=== PATIENT | male | born 1950 | race Caucasian/White ===

== ENCOUNTER → 2020-01-29 07:40 | Outpatient (REF) | payer MEDICARE, SELFPAY ==
--- NOTE | 2020-01-29 | NM_ITS ---
Myocardial perfusion study Indication: Chest pain with multiple risk factors to evaluate for myocardial ischemia Technique: The patient was brought in for a Lexiscan perfusion study on 01/29/2020. Patient performed low-level exercise and was injected 0.4 mg of Lexiscan intravenously. Within a minute of injection, 25 mCi of sestamibi was given intravenously. Images were obtained using the SPECT gamma camera interlaced with the gating device. Images were obtained in supine position. Resting perfusion study was performed on 01/30/2020. Patient was administered 25 mCi of sestamibi intravenously at rest. Images were then obtained in supine position. Images obtained with and without CT attenuation. Total DLP 63 MGY-CM. Images were processed with the software and compared side to side in short axis, horizontal long axis and vertical long axis views. Findings: The stress perfusion study showed non attenuated images show normal uptake of radiotracer in all segments of LV myocardium with thinning of the inferoapical wall of the LV myocardium. Attenuation corrected images show mildly reduced uptake in the apex of the LV myocardium.. The gated study shows normal LV systolic function with calculated LVEF of 70%. LV cavity is normal in size. The gated study shows normal systolic wall thickening and contraction of segments. Resting study shows no change in perfusion pattern compared to stress perfusion study. Gating at rest reveals normal systolic wall motion with ejection fraction at 72%. The findings are consistent with normal myocardial perfusion. NM/NM teto perf SPECT rest & str Impression: 1. Myocardial perfusion imaging study shows normal myocardial perfusion 2. Gated LVEF is 70% 3. Transient ischemic dilatation not present EKG is nondiagnostic for ischemia
--- NOTE | 2020-01-29 08:00 | CA_ITS ---
Acquisition Time: 2020-01-29 08:00:33 Total Exercise Time: 00:02:00 Test Indications: cp, htn Medications: see chart Protocol: LEXISCAN Max HR: 122 BPM 80% of Pred: 151 BPM Max BP: 132/070 mmHG Max Work Load: 1.6 METS Pharmacological stress test using Lexiscan while walking on treadmill for 2 min. Pt tolerated well. Denies any anginal sx. EKG with no arrhythmias, non-diagnoastic for ischemia. Nuclear images to follow. Normotensive response to test. Test reviewed with Dr. Nunez. Referred By: Noe Strauss Overread By:
--- NOTE | 2020-01-29 09:30 | ECG_ITS ---
Hook-up date: 2020-01-29 08:59:00 Duration: 47:59:00 Test Indications: CHEST PAIN, HTN, PALPS Medications: [id number] QRS complexes 3 Ventricular ectopics which represent <1 % of total QRS comp. 1 Supraventricular ectopics which represent <1 % of total QRS comp. * Paced QRS complexs which represent % of total QRS comp. VENTRICULAR ECTOPY 3 Isolated 0 Bigeminal Cycles 0 Couplets 0 Runs 0 Beats in Runs * Beats LONGEST at * BPM at :: -- * Beats FASTEST at * BPM at :: -- SUPRAVENTRICULAR ECTOPY 1 Isolated 0 Couplets 0 Runs 0 Beats in Runs * Beats LONGEST at * BPM at :: -- * Beats FASTEST at * BPM at :: -- HEART RATES 54 MIN at 04:43:18 2020-01-30 76 AVG 125 MAX at 14:20:39 2020-01-30 LONGEST RR 1.2480 secs at 04:43:14 2020-01-30 S-T LEVELS Channel 1 - 128 mm at 08:59:00 2020-01-29 - 128 mm at 08:59:00 2020-01-29 Channel 2 - 128 mm at 08:59:00 2020-01-29 - 128 mm at 08:59:00 2020-01-29 Channel 3 - 128 mm at 02:81:81 -- - 128 mm at 02:81:81 holter monitor IVANA [id number].[id number]. PT DIARY NOT THERE. total beats.[id number]. heart rates.min 54/min. max 125/min at 14.20.39. enlayan30/min. arrhythmias. VENTRICULAR, PVCS only 3 no tachy arrhythmias. SUPRACENTRICULAR ARRHYTHMIAS. ONLY PAC. THIS IS AN UNREMARKABLE HOLTER MONITOR.NO SIG ABN,REGULAR SINUS RHTHM. SIA BAIN M.D. Referred By: Sia Bain Overread By: SIA BAIN MD
== END ==
LOC: HO.CARD 07:40
DX: I10 Essential (primary) hypertension (principal); R00.2 Palpitations; R07.9 Chest pain, unspecified
CPT/HCPCS: 78452; 93017; 93225; 93226; A9500; J0280; J2785

== ENCOUNTER → 2020-04-30 07:26 | Outpatient (BNVA) | payer MEDICARE, SELFPAY | PROVIDERS: Visit Provider Internal Medicine Endocrinology, Diabetes & Metabolism | DX: E04.2 Nontoxic multinodular goiter (principal); E06.3 Autoimmune thyroiditis; E03.9 Hypothyroidism, unspecified; R05 Cough | CPT/HCPCS: 99212 ==

== ENCOUNTER 2020-04-30 08:12 | Outpatient (REF) | payer MEDICARE, SELFPAY ==
[2020-04-30 11:19] LABS: Free T4 (Free Thyroxine) 0.94 ng/dL (0.71-1.85); Thyroid Stimulating Hormone 4.47 uIU/mL (0.32-4.0)
== END 2020-04-30 08:13 | disposition home or self-care (01) ==
LOC: HO.10HDL 08:12
PROVIDERS: Visit Provider Internal Medicine Endocrinology, Diabetes & Metabolism
DX: E04.2 Nontoxic multinodular goiter (principal); E06.3 Autoimmune thyroiditis
CPT/HCPCS: 36415; 84439; 84443

== ENCOUNTER 2020-05-09 16:07 | Outpatient (REF) | payer MEDICARE, SELFPAY ==
--- NOTE | ~2020-05-09 | US_ITS ---
EXAMINATION: US THYROID CLINICAL INFORMATION: Nontoxic multinodular goiter. COMPARISON: Ultrasound soft tissue head/neck thyroid dated 09/25/2019. CT neck 07/12/2019. TECHNIQUE: Linear transducer napier-scale and color Doppler examination with attention to the region of the thyroid. FINDINGS: SIZE: Measurements of the thyroid lobes and nodules are given in sagittal, anteroposterior and transverse dimensions respectively. Right Thyroid Lobe: 5.5 x 2.6 x 2.6 cm, volume 19.2 mL. Previously 6.2 x 3.8 x 4.4 cm, volume 54.2 mL. Parenchyma: The gland echotexture is heterogeneous. Thyroid vascularity is normal. Left Thyroid Lobe: 4.4 x 1.4 x 1.9 cm, volume 5.9 mL. Previously 4.4 x 1.7 x 1.9 cm, volume 7.4 mL. Parenchyma: The gland echotexture is homogeneous. Thyroid vascularity is normal. Isthmus: 0.4 cm in maximum AP dimension. Previously 0.4 cm. Estimated total number of nodules greater than or equal to 1 cm: 4. Dress Shoe Inspector nodules are described as follows: 1. Location: Right inferior. Size: 2.9 x 1.9 x 3.0 cm, volume 8.6 mL. Previously: 2.8 x 2.1 x 2.8 cm, volume 8.6 mL. Nodule characteristics: Composition: Mixed cystic and solid (1). Echogenicity: Cannot be determined (1). Shape: Not taller than wide (0). Margins: Smooth (0). Echogenic Foci: None (0). ACR TI-RADS total points: 2 ACR TI-RADS category: 2 Significant change in size (>/= 20% in 2 dimensions and minimal increase of 2 mm): Slight decrease in the size of the lung volumes. Change in features: No change in parenchymal echotexture. Change in ACR TI-RADS risk category: Unchanged. 2. Location: Right mid lateral. Size: 2.5 x 1.3 x 1.3 cm, volume 2.2 mL. Previously: 4.9 x 3.5 x 4.1 cm, volume 36.8 mL. Nodule characteristics: Composition: Mixed cystic and solid (1). Echogenicity: Cannot be determined (1). Shape: Not taller than wide (0). Margins: Extrathyroidal extension (3). Echogenic Foci: None (0). ACR TI-RADS total points: 5 ACR TI-RADS category: 4 Significant change in size (>/= 20% in 2 dimensions and minimal increase of 2 mm): Improved size from 4.9 cm to 2.5 cm. Change in features: Hypoechoic previously to mixed density now. Change in ACR TI-RADS risk category: None. 3. Location: Right superior. Size: 1.1 x 1.0 x 1.4 cm, volume 0.8 mL. Previously: 1.2 x 1.1 x 1.1 cm, volume 0.8 mL. Nodule characteristics: Composition: Spongiform (0). ACR TI-RADS total points: 0 ACR TI-RADS category: 1 Significant change in size (>/= 20% in 2 dimensions and minimal increase of 2 mm): None Change in features: None. Change in ACR TI-RADS risk category: None. 4. Location: Left mid/inferior. Size: 1.1 x 0.7 x 0.8 cm, volume 0.3 mL. Previously: 1.1 x 0.6 x 0.7 cm, volume 0.2 mL. Nodule characteristics: Composition: Spongiform (0). ACR TI-RADS total points: 0 ACR TI-RADS category: 1 Significant change in size (>/= 20% in 2 dimensions and minimal increase of 2 mm): No change. Change in features: None. Change in ACR TI-RADS risk category: None. There are multiple small anechoic simple cysts and colloid cysts seen throughout the lobes. NODES: No lymphadenopathy is seen in the tissue surrounding the thyroid gland. US/US thyroid IMPRESSION: Multiple bilateral thyroid nodules. The largest nodule lower pole and mid pole right lobe are noted again. The mid pole nodule has improved and is partially exophytic. Recommend continued annual followup. ACR TI-RADS RECOMMENDATIONS: Ultrasound-guided fine-needle aspiration, followup ultrasound, no further followup. * TR1 (0 point) and TR 2 (2 points): No FNA or follow up * TR3 (3 points): FNA if more than or equal to 2.5 cm in maximum dimension, followup in 1, 3 and 5 years if 1.5 to 2.4 cm in maximum dimension. * TR 4 (4-6 points): FNA if more than or equal to 1.5 cm in maximum dimension, followup in 1, 2, 3 and 5 years if 1 to 1.4 cm in maximum dimension. * TR 5 (more than or equal to 7 points): FNA if more than or equal to 1 cm in maximum dimension, followup every year for 5 years if 0.5 to 0.9 cm in maximum dimension. TR3, TR4 or TR5 nodules that are below the size threshold for followup receive no followup.
== END 2020-05-09 16:08 | disposition home or self-care (01) ==
LOC: HO.US 16:07
PROVIDERS: Visit Provider Internal Medicine Endocrinology, Diabetes & Metabolism
DX: E04.2 Nontoxic multinodular goiter (principal)
CPT/HCPCS: 76536

== ENCOUNTER → 2020-05-16 15:01 | Outpatient (BNVA) | payer MEDICARE, SELFPAY | PROVIDERS: Visit Provider Internal Medicine | DX: R05 Cough (principal); I10 Essential (primary) hypertension | CPT/HCPCS: 99202 ==

== ENCOUNTER 2020-06-13 12:53 | Outpatient (REF) | payer MEDICARE, SELFPAY ==
--- NOTE | 2020-06-13 17:14 | PFT_ITS ---
FLOWS: FEV1 of 77% of predicted at 2.34 L. FVC 65% of predicted at 2.68 L. FEV1 to FVC ratio of 0.87. No bronchodilator response. LUNG VOLUMES: Total lung capacity 69% of predicted at 4.59 L. Residual volume 75% of predicted at 1.77 L. Slow vital capacity 65% of predicted at 2.32 L. Expiratory reserve volume 54% of predicted at 0.62 L. Diffusion capacity is moderately decreased, diffusion capacity corrects to normal after adjustment for alveolar ventilation. IMPRESSION: Moderate restrictive ventilatory defect with no bronchodilator response. Isolated decrease in diffusion capacity suggests underlying pulmonary vascular or parenchymal disease. Clinical correlation is advised. MD DIMITRIS Prado/MODL / [id number]
== END 2020-06-13 12:54 | disposition home or self-care (01) ==
LOC: HO.RESP 12:53
PROVIDERS: PCP Internal Medicine; Visit Provider Internal Medicine
DX: R05 Cough (principal); R06.02 Shortness of breath; J98.4 Other disorders of lung; R91.8 Other nonspecific abnormal finding of lung field; I77.810 Thoracic aortic ectasia; Z79.899 Other long term (current) drug therapy; Z86.16 Personal history of COVID-19
CPT/HCPCS: 94060; 94727; 94729; 99212

== ENCOUNTER 2020-06-24 08:19 | Outpatient (REF) | payer MEDICARE, SELFPAY ==
--- NOTE | ~2020-06-24 | CT_ITS ---
EXAMINATION: CT CHEST WITHOUT CONTRAST CLINICAL INFORMATION: Followup pleural-based nodules. COMPARISON: None TECHNIQUE: Multidetector volumetric CT imaging of the chest was done. Axial MIP volume rendering provided. Sagittal and coronal reformatted images were obtained. This CT examination was performed using dose optimization techniques as appropriate, variously including the following: *Automated exposure control *Adjustment of mA and/or kV according to patient size (this includes techniques or standardized protocols for targeted exams where dose is matched to indication/reason for exam; i.e. extremities or head) *Use of iterative reconstruction technique DLP: 128 mGy-cm FINDINGS: SKATESMAN: Unremarkable. LUNGS: There are a few scattered lung nodules seen slightly more prominent in the left lung. 3 mm nodule in the lingula axial image 387/5, punctate calcified 1 mm nodule left lower lobe axial image 386/5, pleural-based 4 mm nodule left lower lobe axial image 396/5, 3 mm nodule pleural-based left lower lobe axial image 419/5, 6 mm nodule pleural-based left lower lobe axial image 437/5. Pleural-based 3 mm nodule right lower lobe image 456/5, 3 mm nodule right lower lobe pleural-based image 442/5, 4 mm nodule pleural-based right lower lobe axial image 405/5, 9 mm pleural-based nodule right lower lobe posteriorly, axial image 393/5. MEDIASTINUM: The right thyroid lobe is asymmetrically enlarged. The left lobe is unremarkable. The central trachea and the bronchi are widely patent. There is atherosclerotic calcification of coronary arteries. The heart size is normal. No pericardial effusion seen. No abnormal mediastinal or hilar lymph nodes seen. The ascending aorta measures 4.5 x 4.1 cm axial image 25/3. PLEURA: There is no pleural effusion. No pleural mass or thickening. AXILLA: There are small shotty lymph nodes in bilateral axillae. The chest wall appears unremarkable. UPPER ABDOMEN: Visualized liver, spleen, pancreas, and bilateral adrenal glands are unremarkable. There is a 1.2 cm exophytic cyst upper pole right kidney. OSSEOUS STRUCTURES: There is no lytic or sclerotic process seen. There is moderate ventral spondylosis upper and mid dorsal spine. CT/CT chest wo con IMPRESSION: Stable multiple pleural-based bilateral nodules. Mild aneurysmal dilatation of abdominal aorta, stable. Enlarged right lobe with a hypodense nodule. The cystic component seen previously has reduced.
== END 2020-06-24 08:20 | disposition home or self-care (01) ==
LOC: HO.CT 08:19
PROVIDERS: Visit Provider Internal Medicine
DX: R05 Cough (principal); R91.8 Other nonspecific abnormal finding of lung field; J98.4 Other disorders of lung
CPT/HCPCS: 71250

== ENCOUNTER 2020-07-08 10:53 | Outpatient (REF) | payer MEDICARE, SELFPAY ==
[2020-07-08 11:52] LABS: MANUAL DIFF FLAG NO
[2020-07-08 11:59] LABS: Basophils Absolute Auto 0.1 X10*3/uL (0.0-0.2); Basophils Percent Auto 0.6 % (0-2); Eosinophils Absolute Auto 0.1 X10*3/uL (0.0-0.4); Eosinophils Percent Auto 1.5 % (0-4); Hematocrit 39.8 % (42-52); Hemoglobin 12.8 g/dl (14.0-18.0); Imm Gran Abs Auto 0.03 X10*3/uL (0.00-0.03); Imm Gran Pct Auto 0.3 % (0.0-0.4); Lymphocytes Absolute Auto 2.7 X10*3/uL (1.2-4.9); Mean Corpuscular HGB Conc 32.2 g/dl (31.0-36.0); Mean Corpuscular Hemoglobin 29.2 pg (27.0-33.0); Mean Corpuscular Volume 90.9 fL (80-98); Mean Platelet Volume 10.6 fL (9.4-12.4); Monocytes Absolute Auto 0.5 X10*3/uL (0.1-1.2); Monocytes Percent Auto 5.9 % (2-11); Neutrophils Absolute Auto 5.2 X10*3/uL (2.0-8.3); Neutrophils Percent Auto 60.7 % (45-73); Platelet Count 289 X10*3/uL (160-400); Red Blood Count 4.38 X10*6/uL (4.60-5.80); Red Cell Distribution Width 11.7 % (11.0-16.0); White Blood Count 8.6 X10*3/uL (4.8-10.8)
[2020-07-08 12:35] LABS: Alanine Aminotransferase 24 U/L (0-40); Albumin Level 4.1 g/dL (3.5-5.0); Alkaline Phosphatase 81 U/L (39-117); Anion Gap 12 (12-20); Aspartate Amino Transferase 20 U/L (5-37); Bilirubin Total 0.5 mg/dL (0.0-1.0); Blood Urea Nitrogen 19 mg/dL (9-16); Calcium 8.8 mg/dL (8.4-10.2); Carbon Dioxide 25 mmol/L (22-29); Chloride 105 mmol/L (96-108); Cholesterol 203 mg/dL; Estimated Glomerular Filt Rate > 60; Glucose Fasting 91 mg/dL (60-99); HDL Cholesterol 48 mg/dL; LDL Cholesterol Calculated 133 mg/dl; Potassium 4.6 mmol/L (3.3-5.1); Sodium 137 mmol/L (135-145); Total Protein 6.9 g/dL (6.5-8.0); Triglycerides 113 mg/dL
[2020-07-08 12:42] LABS: TSH reflex Free T4 2.94 uIU/mL (0.32-4.0)
[2020-07-08 13:04] LABS: Vitamin B12 736 pg/mL (200-900)
[2020-07-12 14:42] LABS: Vitamin D 25-OH, D2 <4 ng/mL; Vitamin D 25-OH, D3 23 ng/mL; Vitamin D 25-OH, Total 23 ng/mL (30-100)
== END 2020-07-08 10:54 | disposition home or self-care (01) ==
LOC: HO.LAB 10:53
PROVIDERS: PCP Internal Medicine; Visit Provider Internal Medicine
DX: K21.9 Gastro-esophageal reflux disease without esophagitis (principal); I10 Essential (primary) hypertension; E06.3 Autoimmune thyroiditis; E04.2 Nontoxic multinodular goiter; Z76.89 Persons encountering health services in other specified circumstances
CPT/HCPCS: 36415; 80053; 80061; 82306; 82607; 84443; 85025

== ENCOUNTER → 2020-08-23 08:17 | Outpatient (BNVA) | payer MEDICARE, SELFPAY | PROVIDERS: PCP Internal Medicine; Visit Provider Internal Medicine Endocrinology, Diabetes & Metabolism | DX: E04.2 Nontoxic multinodular goiter (principal); E06.3 Autoimmune thyroiditis; E03.9 Hypothyroidism, unspecified | CPT/HCPCS: 99212 ==

== ENCOUNTER → 2020-11-25 07:54 | Outpatient (BNVA) | payer MEDICARE, SELFPAY | PROVIDERS: PCP Internal Medicine; Visit Provider Internal Medicine | DX: E04.2 Nontoxic multinodular goiter (principal) | CPT/HCPCS: Q3014 ==

== ENCOUNTER → 2020-12-11 14:22 | Outpatient (BNVA) | payer MEDICARE, SELFPAY | PROVIDERS: PCP Internal Medicine; Referring Provider Internal Medicine; Visit Provider Internal Medicine | DX: Z01.810 Encounter for preprocedural cardiovascular examination (principal); I77.810 Thoracic aortic ectasia; I25.10 Atherosclerotic heart disease of native coronary artery without angina pectoris; R00.0 Tachycardia, unspecified; R06.02 Shortness of breath | CPT/HCPCS: 93005; 99202 ==

== ENCOUNTER → 2020-12-20 10:50 | Outpatient (REF) | payer MEDICARE, SELFPAY ==
--- NOTE | 2020-12-20 10:54 | HM_ITS ---
The patient was totally monitored for 3 days and 2 hours. Baseline there was normal sinus rhythm with average heart is 74 beats per minute No significant pauses or bradycardia noted No sustained tachyarrhythmias noted Total of 666 isolated PACs noted to be consistent with rare PACs at 0.2% No patient reported symptoms MTDD
== END ==
LOC: HO.CARD 10:50
PROVIDERS: Visit Provider Internal Medicine
DX: R00.2 Palpitations (principal); R06.02 Shortness of breath
CPT/HCPCS: 93242

== ENCOUNTER → 2020-12-25 07:25 | Outpatient (REF) | payer MEDICARE, SELFPAY ==
--- NOTE | 2020-12-25 07:28 | CA_ITS ---
Transthoracic Echocardiogram Patient (Last, First, Middle): Melquiades Self, Gender: Male Date of : 1950 Age: 70 Procedure Date: 12/25/2020 Procedure Type: Transthoracic Echocardiogram Location: OP Height: 175.26 cm Weight: 80. kg BSA: 1.96 m2 Heart Rate: bpm BP: 122 / 60 mmHg Spool Cleaner Hand: Referring MD: Kd Nunez MD Field Checker: Rigoberto Hoffmann MD Symptoms: R06.02 - Shortness of breath Study Quality: Fair ECG Rhythm: Sinus Conclusions: - 1. Normal LV systolic function with impaired relaxation filling pattern 2. Mildly dilated left atrium 3. Mild ascending aortic aneurysm 4. Mild aortic valve regurgitation 5. Normal RV systolic pressure 6. No pericardial effusion Findings Left Ventricle Normal left ventricular size and systolic function. The visually estimated ejection fraction is between 60-65%. Spectral Doppler is indicative of an impaired relaxation filling pattern. E/E prime ratio is between 8 and 15 consistent with indeterminate filling pressures. Right Ventricle Normal right ventricular cavity size and systolic function. Atria The left atrium is mildly dilated. Interatrial shunt cannot be excluded. The right atrium is normal in size. Aortic Valve The aortic valve structure and function is likely normal. There is no aortic valve stenosis. There is mild aortic valve regurgitation. Mitral Valve Normal mitral valve structure and function. There is trace mitral valve regurgitation. There is no mitral valve stenosis. Pulmonic Valve The pulmonic valve is likely normal. Tricuspid Valve Likely normal tricuspid valve structure and function. There is trace tricuspid valve regurgitation. The right ventricular systolic pressure is normal. The right ventricular systolic pressure is 29 mmHg. There is no evidence of pulmonary hypertension. Great Vessels The pulmonary artery was not well visualized. There is mild dilatation of the ascending aorta measuring 3.90 cm. Venous The inferior vena cava is normal in size and collapses greater than 50% with inspiration. Pericardium/Pleural There is no evidence of pericardial effusion. Measurements 2D Linear Measurements Ao Root: 3.20 2.1-3.5 cm LVOT Diam: 2.00 3.0+(-)1.3 cm Mitral Valve MV Pk E: 0.66 MV PK A: 0.81 MV Decel Time: 273.00 E/A: 0.80 E'Lateral: 7.07 E'Medial: 6.42 E/E' Med: 10.30 E/E' Lat: 9.40 PHT: 80.00 MVA PHT: 2.75 Decel Adams: 2.43 Aortic Valve AoV Pk Royer: 1.40 AoV Mn Royer: 0.87 AoV VTI: 0.39 AoV Pk Grad: 8.00 Aov Mn Grad: 4.00 SMILEY Cont.VTI: 1.86 AI Pk Royer: 3.08 AI Adams: 2.17 LVOT LVOT Pk Royer: 0.91 LVOT Mn Royer: 0.54 LVOT VTI: 0.23 LVOT Pk Grad: 3.00 LVOT Mn Grad: 1.00 LVOT Diam: 2.00 LVOT Area: 3.14 Diastolic Function MV Pk E: 0.66 MV Pk A: 0.81 E/A: 0.80 E'Medial: 6.42 E/E' Med: 10.30 E' Laterial: 7.07 E/E' Lat: 9.40 Tricuspid Valve TR Pk Royer: 2.57 TR Pk Grad: 26.00 RA Press: 3.00 RVSP: 29.00 Great Vessels Aorta Ao Root-2D: 3.20 2.0-3.7 cm Ao Asc: 3.90 2.1-3.4 cm Ao Arch: 4.00 Pulmonary Valve PV Pk Royer: 0.92 Peak PV Grad: 3.00 Updated in Other Vendor System with Status of Final Rigoberto Hoffmann MD electronically signed on 12/25/2020 1:34:20 PM with status of Final
== END ==
LOC: HO.CARD 07:25
PROVIDERS: Visit Provider Internal Medicine
DX: R06.02 Shortness of breath (principal)
CPT/HCPCS: 93306

== ENCOUNTER → 2021-01-01 14:48 | Outpatient (BNVA) | payer MEDICARE, SELFPAY | PROVIDERS: PCP Internal Medicine; Referring Provider Internal Medicine; Visit Provider Nurse Practitioner Family | DX: Z01.810 Encounter for preprocedural cardiovascular examination (principal); I25.10 Atherosclerotic heart disease of native coronary artery without angina pectoris; I77.810 Thoracic aortic ectasia; E78.5 Hyperlipidemia, unspecified; R06.02 Shortness of breath; R00.0 Tachycardia, unspecified | CPT/HCPCS: 99212 ==

== ENCOUNTER 2021-02-04 08:39 | Outpatient (REF) | payer MEDICARE, SELFPAY ==
[2021-02-04 09:57] LABS: Alanine Aminotransferase 23 U/L (0-40); Albumin Level 4.4 g/dL (3.5-5.0); Alkaline Phosphatase 98 U/L (39-117); Anion Gap 12 (12-20); Aspartate Amino Transferase 20 U/L (5-37); Bilirubin Total 0.7 mg/dL (0.0-1.0); Blood Urea Nitrogen 14 mg/dL (9-16); Calcium 9.3 mg/dL (8.4-10.2); Carbon Dioxide 27 mmol/L (22-29); Chloride 106 mmol/L (96-108); Estimated Glomerular Filt Rate > 60; Glucose Random 102 mg/dL (60-115); Sodium 140 mmol/L (135-145); Total Protein 7.4 g/dL (6.5-8.0)
[2021-02-04 10:18] LABS: Thyroid Stimulating Hormone 12.37 uIU/mL (0.32-4.0)
[2021-02-04 10:23] LABS: Free T4 (Free Thyroxine) 0.81 ng/dL (0.71-1.85)
== END 2021-02-04 08:40 | disposition home or self-care (01) ==
LOC: HO.LAB 08:39
PROVIDERS: Internal Medicine; PCP Internal Medicine; Visit Provider Internal Medicine
DX: H11.89 Other specified disorders of conjunctiva (principal); E04.2 Nontoxic multinodular goiter
CPT/HCPCS: 36415; 80053; 84439; 84443

== ENCOUNTER 2021-03-25 09:29 | Outpatient (REF) | payer MEDICARE, SELFPAY ==
[2021-03-25 11:17] LABS: Free T4 (Free Thyroxine) 0.96 ng/dL (0.71-1.85); Thyroid Stimulating Hormone 6.05 uIU/mL (0.32-4.0)
== END 2021-03-25 09:30 | disposition home or self-care (01) ==
LOC: HO.LAB 09:29
PROVIDERS: Internal Medicine; Visit Provider Internal Medicine
DX: E03.9 Hypothyroidism, unspecified (principal)
CPT/HCPCS: 36415; 84439; 84443

== ENCOUNTER 2021-04-14 10:10 | Outpatient (REF) | payer OTHER, SELFPAY ==
--- NOTE | 2021-04-14 13:23 | MHC.AU.ANO ---
Adult Audiological Evaluation Date of Visit: 04/14/21 Rubber Goods Cutter Finisher Used: Not Applicable Reason for Appointment: Audiologic evaluation due to long-standing hearing difficulties, left ear greater than right. Melquiades reports over the past 1-2 years, the hearing has decreased significantly with tinnitus which sounds like music, and intermittent dizziness with further decrease in hearing ability. He notes symptoms improve somewhat when he performs a Valsalva Manuever. Melquiades says he experiences significant congestion with frequent throat clearing. Has hearing been tested previously?: Yes Previous Hearing Test Results: Results are not available for review Hearing Handicap Inventory: HHIE SCORE: 32 Based on HHIE score, patient has: Severe perceived hearing handicap Ear History: Bothersome Tinnitus/Ringing/Noises in Ears: Left ear greater than right Ear used on the phone: Right Ear Blocked/Full Sensation in Ear(s): Left ear greater than right History of occupational noise exposure?: No History: History: No Medical History: Medical History: G6PD Deficiency and Thyroid Disease - THESE DISORDERS MAY RELATE TO INCREASE IN HEARING LOSS High blood pressure and question of malaria Medication List: Losartan, Omeprazole, Levothyroxine, Amoxicillin, Folic Acid, Vitamins D3 and B12. ICMAPAP, Tylenol, or Motrin used as needed Otoscopy: Right Ear: Unremarkable Left Ear: Unremarkable Tympanometry: Tympanometry performed due to: To assess integrity of the middle ear system Right Ear: Normal Middle Ear System (Type A) Left Ear: Reduced Middle Ear Compliance (Type As) Otoacoustic Emissions Frequency Range Used: 1.6-8 kHz Right Ear Results: Absent Emissions Analysis: Absent emissions suggest cochlear dysfunction Results are consistent with degree and configuration of hearing loss Left Ear Results: Absent Emissions Analysis: Absent emissions suggest cochlear dysfunction Results are consistent with degree and configuration of hearing loss Hearing Evaluation: Transducer(s) Used: Insert Earphones Bone Conduction Method: Conventional Audiometry Stimuli Used: Pure Tones Right Ear: Description of Hearing: Moderate sloping to severe mixed hearing loss. Left Ear: Description of Hearing: Moderately-severe sloping to severe mixed hearing loss. Speech Recognition Threshold (SRT): Method Used: Monitored Live Voice Stimuli Used: Spondee Words Right Ear: 50 dB HL Left Ear: 55 dB HL Word Discrimination: Method: Recorded Lists Word Lists Used: NU-6 Right Ear: 52% at 90 dB HL Left Ear: 32% at 85 dB HL Recommendations: - Referral to Ear, Nose, and Throat is recommended to further investigate the hearing loss and significant speech discrimination difficulty, as well as the possible role of G6PD Deficiency relating to the loss. - If appropriate with Melquiades's medical history, consideration of trial period with hearing aids is recommended. Advised him to contact his insurance to determine hearing aid providers covered by his insurance. - Provided a handout of Communication Strategies to use to improve speech understanding as much as possible. - Audiological re-evaluation in one year, or sooner if medically advised by a physician. Diagnosis: Primary Diagnosis: H90.6 Mixed Hearing Loss, Bilateral Secondary Diagnosis: H69.92 Unspecified Eustachian Tube Dysfunction, Left Ear Services Performed: Comprehensive Audiological Evaluation (CPT 46612) Diagnostic Otoacoustic Emissions (CPT 23119, 26+TC) Tympanometry (CPT 13886) Signature: Provider: Chano Diaz, CCC-A
== END 2021-04-14 10:11 | disposition home or self-care (01) ==
LOC: HO.SH 10:10
PROVIDERS: Visit Provider Internal Medicine
DX: H90.6 Mixed conductive and sensorineural hearing loss, bilateral (principal); H69.92 Unspecified Eustachian tube disorder, left ear
CPT/HCPCS: 92557; 92567; 92588

== ENCOUNTER → 2021-05-08 10:38 | Outpatient (BNVA) | payer MEDICARE, SELFPAY | PROVIDERS: PCP Internal Medicine; Visit Provider Internal Medicine | DX: R05.3 Chronic cough (principal); J98.4 Other disorders of lung; R91.8 Other nonspecific abnormal finding of lung field | CPT/HCPCS: 99212 ==

== ENCOUNTER 2021-05-12 09:32 | Outpatient (REF) | payer MEDICARE, SELFPAY ==
[2021-05-12 12:00] LABS: Free T4 (Free Thyroxine) 1.07 ng/dL (0.71-1.85)
[2021-05-12 12:45] LABS: Thyroid Stimulating Hormone 1.73 uIU/mL (0.32-4.0)
== END 2021-05-12 09:33 | disposition home or self-care (01) ==
LOC: HO.LAB 09:32
PROVIDERS: PCP Internal Medicine; Visit Provider Internal Medicine
DX: E03.9 Hypothyroidism, unspecified (principal); Z88.6 Allergy status to analgesic agent; Z91.02 Food additives allergy status; Z88.2 Allergy status to sulfonamides; Z91.018 Allergy to other foods
CPT/HCPCS: 36415; 84439; 84443; 99212

== ENCOUNTER 2021-05-28 13:16 | Outpatient (REF) | payer MEDICARE, SELFPAY ==
--- NOTE | ~2021-05-28 | CT_ITS ---
EXAMINATION: CT CHEST WITHOUT CONTRAST CLINICAL INFORMATION: Follow-up pulmonary nodules. COMPARISON: CT chest 06/24/2020. TECHNIQUE: Multidetector volumetric CT imaging of the chest was done. Axial MIP volume rendering provided. Sagittal and coronal reformatted images were obtained. This CT examination was performed using dose optimization techniques as appropriate, variously including the following: *Automated exposure control *Adjustment of mA and/or kV according to patient size (this includes techniques or standardized protocols for targeted exams where dose is matched to indication/reason for exam; i.e. extremities or head) *Use of iterative reconstruction technique DLP: 132 mGy-cm FINDINGS: ASBESTOS REMOVAL SUPERVISOR: Well-inflated lungs. LUNGS: Again visualized are multiple small pulmonary nodules: A 3 mm nodule right upper lobe axial image 164/6, a 4 mm nodule left lower lobe axial image 311/6, a 3 m nodule in the lingula axial image 311/6, a pleural-based 9 mm nodule right lower lobe 319/6, a pleural-based 2 mm nodule right lower lobe posteriorly image 229/6, a 6 mm nodule left lower lobe pleural-based 346/6, a 2 mm pleural-based nodule right lower lobe lateral basal segment axial image 379/6. All of these nodules are stable. MEDIASTINUM: The heart size is normal. The ascending aorta measures 4.5 x 4.3 cm on axial image 25/3. Trace coronary artery calcification is seen. The central trachea and the bronchi are widely patent. The thyroid lobes are normal. Previously seen enlarged right thyroid gland appears normal now. No abnormal lymph nodes seen. PLEURA: There is no pleural effusion. No pleural mass or thickening. AXILLA: There are numerous bilateral small axillary lymph nodes. The left axillary lymph node is slightly larger measuring 1.4 cm on axial image 13/3. It is similar to the prior two exams. The chest wall is unremarkable. UPPER ABDOMEN: Visualized liver, spleen, pancreas unremarkable. OSSEOUS STRUCTURES: No lytic lytic or sclerotic process seen. There is moderate spondylosis throughout dorsal spine. CT/CT chest wo con IMPRESSION: Stable multiple pulmonary nodules. Borderline aneurysmal dilatation of ascending aorta measuring 4.5 cm. Fleischner guidelines were followed.
== END 2021-05-28 13:17 | disposition home or self-care (01) ==
LOC: HO.CT 13:16
PROVIDERS: PCP Internal Medicine; Visit Provider Internal Medicine
DX: J98.4 Other disorders of lung (principal); R91.8 Other nonspecific abnormal finding of lung field
CPT/HCPCS: 71250

== ENCOUNTER → 2021-05-29 12:22 | Outpatient (BNVA) | payer MEDICARE, SELFPAY | PROVIDERS: PCP Internal Medicine; Referring Provider Internal Medicine; Visit Provider Internal Medicine | DX: I25.10 Atherosclerotic heart disease of native coronary artery without angina pectoris (principal); I77.810 Thoracic aortic ectasia; I35.1 Nonrheumatic aortic (valve) insufficiency; R00.0 Tachycardia, unspecified | CPT/HCPCS: 93005; 99212 ==

== ENCOUNTER 2021-08-13 08:36 | Outpatient (REF) | payer MEDICARE, SELFPAY ==
[2021-08-13 10:10] LABS: Alanine Aminotransferase 41 U/L (0-40); Albumin Level 3.8 g/dL (3.5-5.0); Alkaline Phosphatase 95 U/L (39-117); Anion Gap 12 (12-20); Aspartate Amino Transferase 40 U/L (5-37); Bilirubin Total 0.7 mg/dL (0.0-1.0); Blood Urea Nitrogen 14 mg/dL (9-16); Carbon Dioxide 25 mmol/L (22-29); Chloride 101 mmol/L (96-108); Estimated Glomerular Filt Rate > 60; Glucose Random 96 mg/dL (60-115); Potassium 5.1 mmol/L (3.3-5.1); Sodium 133 mmol/L (135-145); Total Protein 7.1 g/dL (6.5-8.0)
[2021-08-13 10:20] LABS: TSH reflex Free T4 1.33 uIU/mL (0.32-4.0)
[2021-08-13 10:21] LABS: Vitamin D 25-OH Total 15.6 ng/mL (>30)
[2021-08-14 14:46] LABS: Calcium (PTHI) 8.5 mg/dL (8.6-10.3); PTHI 84 pg/mL (16-77)
== END 2021-08-13 08:37 | disposition home or self-care (01) ==
LOC: HO.LAB 08:36
PROVIDERS: Internal Medicine; PCP Internal Medicine; Visit Provider Internal Medicine
DX: E03.8 Other specified hypothyroidism (principal); I10 Essential (primary) hypertension; K21.9 Gastro-esophageal reflux disease without esophagitis; R53.83 Other fatigue
CPT/HCPCS: 36415; 80053; 82306; 83970; 84443

== ENCOUNTER 2021-08-21 13:50 | Emergency (ER) | payer MEDICARE, SELFPAY ==
[2021-08-21] VITALS (8 sets, daily range): BP systolic 112–157; BP diastolic 68–80; PULSE 70–87; RESP 15–18; TEMP 36.6–37; O2SAT 97–100; BMI 25.0
--- NOTE | ~2021-08-21 | XR_ITS ---
EXAMINATION: XR CHEST CLINICAL INFORMATION: Chest pain COMPARISON: Chest radiographs 08/22/2019, 08/21/2013, CT chest noncontrast 06/24/2020 TECHNIQUE: Portable upright AP view of the chest was obtained. FINDINGS: Patient is rotated to left. The lungs are clear. There is no pneumothorax, pleural reaction, airspace consolidation, or effusion. Heart size normal. The visualized hilar and mediastinal contours are unremarkable. There are degenerative changes thoracic spine. XR/XR chest 1V IMPRESSION: Unremarkable examination.
--- NOTE | 2021-08-21 13:51 | ECG_ITS ---
Test Reason : cp Blood Pressure : / mmHG Vent. Rate : 076 BPM Atrial Rate : 076 BPM P-R Int : 186 ms QRS Dur : 078 ms QT Int : 362 ms P-R-T Axes : 051 -07 029 degrees QTc Int : 407 ms Normal sinus rhythm Normal ECG When compared with ECG of 02-JAN-2012 16:04, No significant change was found Referred By: Generic ED Physician Electronically Signed By:YANIRA GILLIS
--- NOTE | 2021-08-21 14:12 | ED.CHESTPAIN ---
HPI - Chest Pain General Chief Complaint: Chest Pain Stated Complaint: chest pain Time Seen by Provider: 08/21/21 14:02 Source: patient Mode of arrival: ambulatory Limitations: no limitations History of Present Illness HPI narrative: 71 y/o male with history of CAD s/p recent CT angio showing 90% LAD stenosis who presents to the ER with acute onset of 10/10 left sided chest pressure that radiates to his left shoulder and upper arm. He was sitting when the pressure came on suddenly. He tried laying down and sleeping but could not. He denies any SOB, diaphoresis or nausea. He reports the pressure is in his left upper chest and he has a numbness into his left upper arm, nothing in the lower arm or hand. No weakness. He took his ASA 81 this morning and his had him take 2 more prior to arrival. He is scheduled for an angioplasty at [facility] on 09/02. MD complaint: chest pain Pertinent past history: coronary artery disease Onset (ago): hour(s) Timing of current episode: constant Prior episodes: No Onset: during rest Pain location: left chest Pain radiation: left arm and left shoulder Severity: severe Pain scale (0-10): 10 Quality: tightness and heaviness Relieving factors: nothing Exacerbating factors: nothing Treatment prior to arrival: aspirin Risk Factors Coronary artery disease risk factors: hyperlipidemia and hypertension Thoracic aortic dissection risk factors: none Related Data Home Medications Medication Instructions Recorded Confirmed metoprolol tartrate 25 mg tablet 12.5 mg PO DAILY tab 05/28/21 05/29/21 aspirin 81 mg tablet,delayed 81 mg PO DAILY 08/20/21 release Previous Rx's Medication Instructions Recorded Cane #1 ea 10/29/20 levothyroxine 75 mcg tablet 75 mcg PO DAILY 30 Days #30 tab 07/03/21 omeprazole 20 mg capsule,delayed 20 mg PO ONCE 90 Days #90 cap 08/06/21 release cholecalciferol (vitamin D3) 1,250 1,250 mcg PO QWEEK 56 Days #8 cap 08/18/21 mcg (50,000 unit) capsule cholecalciferol (vitamin D3) 50 50 mcg PO DAILY 30 Days #30 cap 08/18/21 mcg (2,000 unit) capsule losartan 25 mg tablet 25 mg PO DAILY 90 Days #90 tab 08/19/21 atorvastatin 80 mg tablet 80 mg PO BEDTIME 30 Days #30 tab 08/20/21 Allergies Allergy/AdvReac Type Severity Reaction Status Date / Time aspirin [ASPIRIN] Allergy Severe G6PD Verified 05/29/21 12:27 DEFICIENCY blue dye [BLUE DYE] Allergy Unknown G6PD Verified 05/29/21 12:27 Sulfa (Sulfonamide Allergy Unknown UNKNOWN Verified 05/29/21 12:27 Antibiotics) [SULFA(SULFONAMIDE ANTIBIOTICS)] BEANS. BAKED Allergy Severe BRE BEANS Uncoded 05/29/21 12:27 ( G6PD DEFICINCEY Review of Systems Review of Systems: Constitutional: No Fever, No Chills ENT/Mouth: No sore throat, No Rhinorrhea, No Swallowing Difficulty Eyes: No Eye Pain, No Swelling, No Redness Cardiovascular: + Chest Pain, No SOB, No Orthopnea, No Edema Respiratory: No Cough, No Sputum, No Wheezing, No dyspnea Gastrointestinal: No Nausea, No Vomiting, No Diarrhea, No abdominal Pain Genitourinary: No Dysuria, No Urinary Frequency, No Hematuria Musculoskeletal: No joint pain, No Myalgias Skin: No Skin Lesions, No rash Neuro: No Weakness, + Numbness, No Dizziness, No Headache Psych: + Anxiety/Panic, No Depression Heme/Lymph: No Bruising, No Lymphadenopathy Endocrine: No Polyuria, No Polydipsia PMFSH Past Medical History Attestation statement: The following information was validated with the patient. Medical History Chronic cough Dysphagia Jadiel's disease Hypertension Hypothyroidism Mild ascending aorta dilatation Non-toxic multinodular goiter Pulmonary nodules Restrictive lung disease Subclinical hypothyroidism Vitamin D deficiency Surgical History History of thyroid surgery Hx of cholecystectomy Family History Family History Father Hypertension Heart disease Mother Hypertension Social History Social History Household Members: Spouse and Children Housing: House Alcohol intake: never Patient Tobacco Use Status: Never used Tobacco Smoked in Last 30 Days: No e-Cigarette/Vaping Use: Never Used Use of substances other than those prescribed or required for medical reasons: No Advance Directives: Yes Advance Directives Information Provided: Yes Advance Directives on File: No Current occupational status: retired Physical Exam Vital Signs: Vital Signs: Last Vital Signs Temp 98 F 08/21/21 14:04 Pulse 76 08/21/21 18:06 Resp 15 08/21/21 18:06 BP 120/68 08/21/21 18:06 Pulse Ox 97 08/21/21 18:06 BMI result Body Mass Index 25.0 Appearance: Alert. Oriented X3. No acute distress. Eyes: Pupils equal, round and reactive to light. ENT: Pharynx normal. Neck: Normal inspection. Neck supple. CVS: Normal heart rate and rhythm. Pulses normal. Respiratory: No respiratory distress. Breath sounds normal. Abdomen: Soft and nontender. +BS x4 Skin: Skin warm and dry. Normal skin color. Normal skin turgor. No rashes. Extremities: No lower extremity edema. No calf tenderness. Neuro: Oriented X 3. No motor deficit. No sensory deficit. Course Course Course Narrative: 71-year-old male with a history of known CAD with 90% stenosis of the LAD seen on recent CT angiography of the coronaries who presents to the ER with sudden onset of severe 10/10 chest pressure on the left side that radiates to the left shoulder. High suspicion for ACS. Initial EKG without STEMI or significant ischemic changes. He is hemodynamically stable. Dr. Nunez has been made aware he is in the emergency department. Will check serial troponins, serial EKGs, give a dose of sublingual nitroglycerin and monitor closely. Anticipate transfer to [facility] for intervention Reevaluation(s) Reevaluation #1: Initial troponin is less than 3.5. Dr. Nunez came to evaluate the patient in the ER, he would like to start empiric heparin infusion, transfer the patient to [facility] for cardiac catheterization by Dr. France tomorrow. Patient updated on plan of care. No improvement with 1st dose of nitroglycerin so give a dose of IV morphine. Called the transfer center to initiate transfer, unfortunately there are notes limit treatments available at [facility] at this time. Dr. France to be contacted by their transfer center to determine plan, patient may need to board in the ED until he can be cath'ed tomorrow. Reevaluation #2: Second troponin is less than 3.5. Spoke with patient placement at [facility] - he will be transferred once a bed is available. Reevaluation #3: Bed available on 7th floor - Dr. Clark accepts with Cardiology plan to cath tomorrow ([facility]) Consultations Consultation #1: Cardiology-Dr. Nunez. MDM - Chest Pain Lab Data Attestation: I reviewed the patient's lab results. Result diagrams: 08/21/21 14:34 08/21/21 14:34 Labs: Lab Results 08/21/21 08/21/21 08/21/21 Range/Units 14:34 14:34 14:34 WBC 10.2 (4.8-10.8) X10*3/uL RBC 4.59 L (4.60-5.80) X10*6/uL Hgb 12.5 L (14.0-18.0) g/dl Hct 39.2 L (42.0-52.0) % MCV 85.4 (80.0-98.0) fL MCH 27.2 (27.0-33.0) pg MCHC 31.9 (31.0-36.0) g/dl RDW 12.3 (11.0-16.0) % Plt Count 299 (160-400) X10*3/uL MPV 11.0 (9.4-12.4) fL Immature Gran % (Auto) 0.3 (0.0-0.4) % Neut % (Auto) 50.9 (45-73) % Lymph % (Auto) 38.9 (20-40) % [place] % (Auto) 7.5 (2-11) % Eos % (Auto) 1.9 (0-4) % Baso % (Auto) 0.5 (0-2) % Lymph # (Auto) 4.0 (1.2-4.9) X10*3/uL [place] # (Auto) 0.8 (0.1-1.2) X10*3/uL Eos # (Auto) 0.2 (0.0-0.4) X10*3/uL Baso # (Auto) 0.1 (0.0-0.2) X10*3/uL Abs Immat Gran (auto) 0.03 (0.00-0.03) X10*3/uL Absolute Neuts (auto) 5.2 (2.0-8.3) x10*3/uL Absolute Nucleated RBC 0.000 (0.0-0.012) X10*3/uL Nucleated RBC % (auto) 0.0 (0.0-0.2) /100WBC PT 11.8 (9.9-13.0) SEC INR 1.0 (0.9-1.1) APTT 34.8 (24.1-38.0) SEC aPTT Heparin Protocol (53-77.9) SEC Sodium 134 L (135-145) mmol/L Potassium 4.3 (3.3-5.1) mmol/L Chloride 101 (96-108) mmol/L Carbon Dioxide 26 (22-29) mmol/L Anion Gap 11 L (12-20) BUN 15 (9-16) mg/dL Creatinine 0.92 (0.5-1.4) mg/dL Estim Creat Clear Calc 76.0 Estimated GFR > 60 Random Glucose 93 (60-115) mg/dL Calcium 9.0 (8.4-10.2) mg/dL Magnesium 2.4 (1.6-2.6) mg/dL Total Bilirubin 0.5 (0.0-1.0) mg/dL Direct Bilirubin 0.2 (0.0-0.5) mg/dL AST 24 (5-37) U/L ALT 26 (0-40) U/L Alkaline Phosphatase 103 (39-117) U/L Troponin I High Sens (<3.5-35.0) ng/L B-Natriuretic Peptide (<100) pg/mL Total Protein 6.9 (6.5-8.0) g/dL Albumin 3.9 (3.5-5.0) g/dL COVID-19 (ZAINA) (Negative) COVID-19 Clin Com 08/21/21 08/21/21 08/21/21 Range/Units 14:34 14:34 16:41 WBC (4.8-10.8) X10*3/uL RBC (4.60-5.80) X10*6/uL Hgb (14.0-18.0) g/dl Hct (42.0-52.0) % MCV (80.0-98.0) fL MCH (27.0-33.0) pg MCHC (31.0-36.0) g/dl RDW (11.0-16.0) % Plt Count (160-400) X10*3/uL MPV (9.4-12.4) fL Immature Gran % (Auto) (0.0-0.4) % Neut % (Auto) (45-73) % Lymph % (Auto) (20-40) % [place] % (Auto) (2-11) % Eos % (Auto) (0-4) % Baso % (Auto) (0-2) % Lymph # (Auto) (1.2-4.9) X10*3/uL [place] # (Auto) (0.1-1.2) X10*3/uL Eos # (Auto) (0.0-0.4) X10*3/uL Baso # (Auto) (0.0-0.2) X10*3/uL Abs Immat Gran (auto) (0.00-0.03) X10*3/uL Absolute Neuts (auto) (2.0-8.3) x10*3/uL Absolute Nucleated RBC (0.0-0.012) X10*3/uL Nucleated RBC % (auto) (0.0-0.2) /100WBC PT (9.9-13.0) SEC INR (0.9-1.1) APTT (24.1-38.0) SEC aPTT Heparin Protocol 35.4 L (53-77.9) SEC Sodium (135-145) mmol/L Potassium (3.3-5.1) mmol/L Chloride (96-108) mmol/L Carbon Dioxide (22-29) mmol/L Anion Gap (12-20) BUN (9-16) mg/dL Creatinine (0.5-1.4) mg/dL Estim Creat Clear Calc Estimated GFR Random Glucose (60-115) mg/dL Calcium (8.4-10.2) mg/dL Magnesium (1.6-2.6) mg/dL Total Bilirubin (0.0-1.0) mg/dL Direct Bilirubin (0.0-0.5) mg/dL AST (5-37) U/L ALT (0-40) U/L Alkaline Phosphatase (39-117) U/L Troponin I High Sens < 3.5 (<3.5-35.0) ng/L B-Natriuretic Peptide < 10 (<100) pg/mL Total Protein (6.5-8.0) g/dL Albumin (3.5-5.0) g/dL COVID-19 (ZAINA) Negative (Negative) COVID-19 Clin Com See Note 08/21/21 Range/Units 16:41 WBC (4.8-10.8) X10*3/uL RBC (4.60-5.80) X10*6/uL Hgb (14.0-18.0) g/dl Hct (42.0-52.0) % MCV (80.0-98.0) fL MCH (27.0-33.0) pg MCHC (31.0-36.0) g/dl RDW (11.0-16.0) % Plt Count (160-400) X10*3/uL MPV (9.4-12.4) fL Immature Gran % (Auto) (0.0-0.4) % Neut % (Auto) (45-73) % Lymph % (Auto) (20-40) % [place] % (Auto) (2-11) % Eos % (Auto) (0-4) % Baso % (Auto) (0-2) % Lymph # (Auto) (1.2-4.9) X10*3/uL [place] # (Auto) (0.1-1.2) X10*3/uL Eos # (Auto) (0.0-0.4) X10*3/uL Baso # (Auto) (0.0-0.2) X10*3/uL Abs Immat Gran (auto) (0.00-0.03) X10*3/uL Absolute Neuts (auto) (2.0-8.3) x10*3/uL Absolute Nucleated RBC (0.0-0.012) X10*3/uL Nucleated RBC % (auto) (0.0-0.2) /100WBC PT (9.9-13.0) SEC INR (0.9-1.1) APTT (24.1-38.0) SEC aPTT Heparin Protocol (53-77.9) SEC Sodium (135-145) mmol/L Potassium (3.3-5.1) mmol/L Chloride (96-108) mmol/L Carbon Dioxide (22-29) mmol/L Anion Gap (12-20) BUN (9-16) mg/dL Creatinine (0.5-1.4) mg/dL Estim Creat Clear Calc Estimated GFR Random Glucose (60-115) mg/dL Calcium (8.4-10.2) mg/dL Magnesium (1.6-2.6) mg/dL Total Bilirubin (0.0-1.0) mg/dL Direct Bilirubin (0.0-0.5) mg/dL AST (5-37) U/L ALT (0-40) U/L Alkaline Phosphatase (39-117) U/L Troponin I High Sens < 3.5 (<3.5-35.0) ng/L B-Natriuretic Peptide (<100) pg/mL Total Protein (6.5-8.0) g/dL Albumin (3.5-5.0) g/dL COVID-19 (ZAINA) (Negative) COVID-19 Clin Com ECG Data ECG #1: Attestation: I personally reviewed and interpreted this ECG as follows: ECG interpretation date: 08/21/21 ECG interpretation time: 18:51 Prior ECG tracings: available for review Interpretation: EKG 1 2 13:51 - NORMAL SINUS RHYTHM, HEART RATE 76 BEATS PER MINUTE, NORMAL TN INTERVAL, NORMAL QTC, NO ST SEGMENT ELEVATIONS OR DEPRESSIONS. EKG 2 - 15:22 - NORMAL SINUS RHYTHM, HEART RATE 72 BEATS PER MINUTE, NORMAL TN INTERVAL, NORMAL QTC, NEW T-WAVE INVERSION IN LEAD [address] SEGMENT ELEVATIONS OR DEPRESSIONS. Attending Attestation Case d/w Dr. Harrington Critical Care Time Critical Care Time Critical Care Time: Yes Total Critical Care Time: 44 Attestation: I have personally provided critical care time exclusive of time spent on separately billable procedures. Time includes review of lab data, radiology results, discussion with consultants, and monitoring for potential decompensation. Intervention performed as documented. Discharge Plan Discharge Clinical Impression: Unstable angina Patient Disposition: [facility] Transfer Details: [facility] Prescriptions: No Action (DME) Cane See Rx Instructions .Route .MEDSUPPLY Qty: 1 0RF Rx Instructions: As directed levothyroxine 75 mcg tablet 75 mcg PO DAILY 30 Days Qty: 30 3RF omeprazole 20 mg capsule,delayed release(DR/EC) 20 mg PO ONCE 90 Days Qty: 90 0RF cholecalciferol (vitamin D3) 1,250 mcg (50,000 unit) capsule 1,250 mcg PO QWEEK 56 Days Qty: 8 0RF cholecalciferol (vitamin D3) 50 mcg (2,000 unit) capsule 50 mcg PO DAILY 30 Days Qty: 30 11RF losartan 25 mg tablet 25 mg PO DAILY 90 Days Qty: 90 0RF atorvastatin 80 mg tablet 80 mg PO BEDTIME 30 Days Qty: 30 3RF Rx Instructions: Cholesterol lowering agent aspirin 81 mg tablet,delayed release (DR/EC) 81 mg PO DAILY 0RF metoprolol tartrate 25 mg tablet 12.5 mg PO DAILY 0RF
[2021-08-21 14:38] LABS: MANUAL DIFF FLAG NO
[2021-08-21 14:42] LABS: Basophils Absolute Auto 0.1 X10*3/uL (0.0-0.2); Basophils Percent Auto 0.5 % (0-2); Eosinophils Absolute Auto 0.2 X10*3/uL (0.0-0.4); Eosinophils Percent Auto 1.9 % (0-4); Hematocrit 39.2 % (42.0-52.0); Hemoglobin 12.5 g/dl (14.0-18.0); Imm Gran Abs Auto 0.03 X10*3/uL (0.00-0.03); Imm Gran Pct Auto 0.3 % (0.0-0.4); Lymphocytes Percent Auto 38.9 % (20-40); Mean Corpuscular HGB Conc 31.9 g/dl (31.0-36.0); Mean Corpuscular Hemoglobin 27.2 pg (27.0-33.0); Mean Corpuscular Volume 85.4 fL (80.0-98.0); Monocytes Absolute Auto 0.8 X10*3/uL (0.1-1.2); Monocytes Percent Auto 7.5 % (2-11); Neutrophils Absolute Auto 5.2 x10*3/uL (2.0-8.3); Neutrophils Percent Auto 50.9 % (45-73); Platelet Count 299 X10*3/uL (160-400); Red Blood Count 4.59 X10*6/uL (4.60-5.80); Red Cell Distribution Width 12.3 % (11.0-16.0); White Blood Count 10.2 X10*3/uL (4.8-10.8)
[2021-08-21 14:51] LABS: Prothrombin Time 11.8 SEC (9.9-13.0)
[2021-08-21] MEDS: Nitroglycerin 0.4 MG TAB.SUBL SUBLINGUAL (14:53)
[2021-08-21 14:54] LABS: Partial Thromboplastin Time 34.8 SEC (24.1-38.0)
[2021-08-21 14:58] LABS: Alanine Aminotransferase 26 U/L (0-40); Albumin Level 3.9 g/dL (3.5-5.0); Alkaline Phosphatase 103 U/L (39-117); Anion Gap 11 (12-20); Aspartate Amino Transferase 24 U/L (5-37); Bilirubin Direct 0.2 mg/dL (0.0-0.5); Bilirubin Total 0.5 mg/dL (0.0-1.0); Blood Urea Nitrogen 15 mg/dL (9-16); Carbon Dioxide 26 mmol/L (22-29); Chloride 101 mmol/L (96-108); Estimated Glomerular Filt Rate > 60; Glucose Random 93 mg/dL (60-115); Magnesium 2.4 mg/dL (1.6-2.6); Potassium 4.3 mmol/L (3.3-5.1); Sodium 134 mmol/L (135-145); Total Protein 6.9 g/dL (6.5-8.0)
[2021-08-21 15:02] LABS: B Type Natriuretic Peptide < 10 pg/mL (<100); Troponin-I High Sensitivity < 3.5 ng/L (<3.5-35.0)
[2021-08-21 15:21] LABS: COVID-19 Test Negative (Negative); IDNOW Serial# 55D5AD1C
[2021-08-21] MEDS: Morphine Sulfate 2 MG/ML CARTRIDGE IVPUSH (15:32)
--- NOTE | 2021-08-21 16:06 | P.CONCA_ITS ---
History of Present Illness History of Present Illness Date of Service: 08/21/21 Chief complaint: chest pain Narrative: This is a cardiology consultation regarding chest pain. Patient was recently seen in the office. He had COVID during the pandemic. Subsequent to that, he has had shortness of breath at different times. He is also having tachycardia. He was is getting workup and in that process underwent a recent coronary CTA. That had shown LAD 90% stenosis and he was actually set up for diagnostic catheterization in the next few days. In the interim, patient states that he d eveloped chest pressure today and that was different from what he has felt in the past and he also had some left arm discomfort/Min burning/numbness and that led to the ER visit. So far EKG and troponin unremarkable. However because of the CTA findings as well as his cardiac symptoms we were asked to see him. Patient states that he has had chest pressure different times in the past but what he felt today was something totally different. He is not able to describe this any further. Currently he does feel okay. No active chest pain. Not describing any shortness of breath or any other symptoms. Review of Systems Review of Systems: Yes all other systems are reviewed and are negative Constitutional: Constitutional: Reports as per HPI Eyes: Eyes: Reports as per HPI ENT: Reports as per HPI Cardiovascular: Cardiovascular: Reports as per HPI, Denies acrocyanosis, Denies cool extremities, Reports chest pain, Denies leg edema, Denies lightheadedness, Denies palpitations and Denies dyspnea Respiratory: Respiratory: Reports as per HPI, Reports no additional resp iratory complaints and Denies dyspnea Gastrointestinal: Gastrointestinal: Reports as per HPI and Reports no additional gastrointestinal complaints Genitourinary: Genitourinary: Reports no additional male genitourinary complaints and Reports as per HPI Musculoskeletal: Musculoskeletal: Reports no additional musculoskeletal complaints and Reports as per HPI Integumentary/Breasts: Skin/Breast: Reports system reviewed and no additional complaints, except as docu Neurologic: Reports system reviewed and no additional complaints, except as documented and Reports as per HPI Psychiatric: Psychiatric: Reports no additional psychiatric complaints and Reports as per HPI Endocrine: Endocrine: Reports no additional endocrine complaints, Reports as per HPI and Denies palpitations Hematologic/Lymphatic: Hematologic/Lymphatic: Reports no additional hematologic/lymphatic complaints and Reports as per HPI Allergic/Immunologic: Allergic/Immunologic: Reports no additional allergic/immunologic complaints and Reports as per HPI [facility] Past Medical History Medical History Chronic cough Dysphagia Jadiel's disease Hypertension Hypothyroidism Mild ascending aorta dilatation Non-toxic multinodular goiter Pulmonary nodules Restrictive lung disease Subclinical hypothyroidism Vitamin D deficiency Family History Family History Father Hypertension Heart disease Mother Hypertension Surgical History Surgical History History of thyroid surgery Hx of cholecystectomy Social History Social History Household Members: Spouse and Children Housing: House Alcohol intake: never Patient Tobacco Use Status: Never used Tobacco Smoked in Last 30 Days: No e-Cigarette/Vaping Use: Never Used Use of substances other than those prescribed or required for medical reasons: No Advance Directives: Yes Advance Directives Information Provided: Yes Advance Directives on File: No Current occupational status: retired Meds Allergies Allergy/AdvReac Type Severity Reaction Status Date / Time aspirin [ASPIRIN] Allergy Severe G6PD Verified 05/29/21 12:27 DEFICIENCY blue dye [BLUE DYE] Allergy Unknown G6PD Verified 05/29/21 12:27 Sulfa (Sulfonamide Allergy Unknown UNKNOWN Verified 05/29/21 12:27 Antibiotics) [SULFA(SULFONAMIDE ANTIBIOTICS)] BEANS. BAKED Allergy Severe BRE BEANS Uncoded 05/29/21 12:27 ( G6PD DEFICINCEY Home Medications Medication Instructions Recorded Confirmed Last Taken Type metoprolol tartrate 25 mg tablet 12.5 mg PO DAILY tab 05/28/21 05/29/21 Unknown History aspirin 81 mg tablet,delayed 81 mg PO DAILY 08/20/21 Unknown History release Physical Exam Vital Signs: Vital Signs: Last Vital Signs Temp 98 F 08/21/21 14:04 Pulse 70 08/21/21 15:31 Resp 18 08/21/21 15:32 BP 135/76 08/21/21 15:31 Pulse Ox 98 08/21/21 15:31 BMI result Body Mass Index 25.0 Const: General: comfortable and no acute distress Orientation/consciousness: patient oriented x3 HEENT: Other: Unremarkable Head: Yes normal to inspection Neck: Neck: Yes normal visual inspection Chest: Chest palpation & inspection: normal inspection of the chest Resp: Auscultation: clear to auscultation bilaterally Cardio: Palpation: normal PMI Heart sounds: S1 normal heart sound present, S2 normal heart sound present, no gallops, no murmurs and no rubs GI: Palpation (GI): Soft to palpation Back/Spine/Pelvis: Other: unremarkable Skin: General skin exam: no rashes or lesions noted Neuro: General: patient oriented x3 Extrem: General: Yes normal to inspection Psych: Mental Status: mental status grossly normal Objective Labs and Meds Result diagrams: 08/21/21 14:34 08/21/21 14:34 Lab results: Laboratory Results - last 24 hr 08/21/21 08/21/21 08/21/21 14:34 14:34 14:34 WBC 10.2 RBC 4.59 L Hgb 12.5 L Hct 39.2 L MCV 85.4 MCH 27.2 MCHC 31.9 RDW 12.3 Plt Count 299 MPV 11.0 Immature Gran % (Auto) 0.3 Neut % (Auto) 50.9 Lymph % (Auto) 38.9 [place] % (Auto) 7.5 Eos % (Auto) 1.9 Baso % (Auto) 0.5 Lymph # (Auto) 4.0 [place] # (Auto) 0.8 Eos # (Auto) 0.2 Baso # (Auto) 0.1 Abs Immat Gran (auto) 0.03 Absolute Neuts (auto) 5.2 Absolute Nucleated RBC 0.000 Nucleated RBC % (auto) 0.0 PT 11.8 INR 1.0 APTT 34.8 Sodium 134 L Potassium 4.3 Chloride 101 Carbon Dioxide 26 Anion Gap 11 L BUN 15 Creatinine 0.92 Estim Creat Clear Calc 76.0 Estimated GFR > 60 Random Glucose 93 Calcium 9.0 Magnesium 2.4 Total Bilirubin 0.5 Direct Bilirubin 0.2 AST 24 ALT 26 Alkaline Phosphatase 103 Troponin I High Sens B-Natriuretic Peptide Total Protein 6.9 Albumin 3.9 COVID-19 (ZAINA) COVID-19 Clin Com 08/21/21 08/21/21 14:34 14:34 WBC RBC Hgb Hct MCV MCH MCHC RDW Plt Count MPV Immature Gran % (Auto) Neut % (Auto) Lymph % (Auto) [place] % (Auto) Eos % (Auto) Baso % (Auto) Lymph # (Auto) [place] # (Auto) Eos # (Auto) Baso # (Auto) Abs Immat Gran (auto) Absolute Neuts (auto) Absolute Nucleated RBC Nucleated RBC % (auto) PT INR APTT Sodium Potassium Chloride Carbon Dioxide Anion Gap BUN Creatinine Estim Creat Clear Calc Estimated GFR Random Glucose Calcium Magnesium Total Bilirubin Direct Bilirubin AST ALT Alkaline Phosphatase Troponin I High Sens < 3.5 B-Natriuretic Peptide < 10 Total Protein Albumin COVID-19 (ZAINA) Negative COVID-19 Clin Com See Note ECG Interpretation: EKG with sinus rhythm at 72/Min; no significant ST-T changes. Assessment and Plan (1) Unstable angina: Status: Acute (2) Atherosclerotic cardiovascular disease: Status: Acute (3) Ascending aortic aneurysm: Status: Acute Plan Coronary CTA reviewed from few days ago. In the LAD, there is 90% stenosis about 2.5 cm from the LAD origin. Other areas in the LAD with noncritical disease. Circumflex has intermediate stenosis in the mid segment. Otherwise unremarkable. In that study, ascending aortic measurement was 4.3 cm. High sensitivity troponin is within normal limits. Based on his presentation with chest pressure as well as left arm burning and known significant disease from the recent coronary CTA, we will arrange a diagnostic catheterization for tomorrow. It was recently set up for next week but as he is presenting to the ER we will transfer him to [facility]. Discussed with patient as well as daughter the bedside and they understand agree. Also discussed with emergency room provider. We can start IV heparin drip. Continue aspirin high-dose statins. Beta-blockers and losartan as before. All questions and concerns were answered. To be transferred once bed is available. Procedures Date of Service Date of Service: 08/21/21
[2021-08-21 17:05] LABS: PTT Heparin Drip 35.4 SEC (53-77.9)
[2021-08-21 17:08] LABS: Troponin-I High Sensitivity < 3.5 ng/L (<3.5-35.0)
[2021-08-21] MEDS: Heparin Sodium,Porcine 5,000 UNIT/ML VIAL 4000 UNIT IVPUSH (17:57)
[2021-08-21] MEDS: Heparin Sodium,Porcine/1/2NS 25,000 UNIT/250 ML IV.SOLN 11.1 UNIT IVCONT (18:00)
--- NOTE | 2021-08-21 18:59 | PC.NURSE ---
report to KIM Trevino at [phone] [place] [facility] stable, still complains of discomfort in L chest but better than when he arrived. VS WNL. IV+ LAC with herpain drip running
--- NOTE | 2021-08-21 19:16 | PC.NURSE ---
This Us/Tech called [facility] Tx Line at [phone] per Lilo GO. Accepted pt awaiting a room assignment. [facility] called at 1850 with a room pt is going to room 117. Called action for an [facility] [place] at [phone].
== END 2021-08-21 20:01 | disposition short-term general hospital (02) ==
PROVIDERS: Physician Assistant; Emergency Provider Emergency Medicine; PCP Internal Medicine
DX: I20.0 Unstable angina (principal); R07.89 Other chest pain; M25.512 Pain in left shoulder; R06.02 Shortness of breath; Z20.822 Contact with and (suspected) exposure to COVID-19; Z79.899 Other long term (current) drug therapy
CPT/HCPCS: 36415; 71045; 80048; 80076; 83735; 83880; 84484; 85025; 85610; 85730; 87635; 93005; 96365; 96366; 96375; 99285; 99291; J2270

== ENCOUNTER → 2021-08-28 09:26 | Outpatient (BNVA) | payer MEDICARE, SELFPAY | PROVIDERS: PCP Internal Medicine; Referring Provider Internal Medicine; Visit Provider Internal Medicine | DX: I25.10 Atherosclerotic heart disease of native coronary artery without angina pectoris (principal); I77.810 Thoracic aortic ectasia; I35.1 Nonrheumatic aortic (valve) insufficiency; I77.819 Aortic ectasia, unspecified site; I10 Essential (primary) hypertension | CPT/HCPCS: 99212 ==

== ENCOUNTER 2021-10-16 07:45 | Outpatient (REF) | payer MEDICARE, SELFPAY ==
[2021-10-16 09:35] LABS: Phosphorus 4.4 mg/dL (2.7-4.5)
[2021-10-16 10:02] LABS: Thyroid Stimulating Hormone 2.17 uIU/mL (0.32-4.0); Vitamin D 25-OH Total 34.8 ng/mL (>30)
[2021-10-17 13:26] LABS: Calcium (PTHI) 9.4 mg/dL (8.6-10.3); PTHI 54 pg/mL (16-77)
== END 2021-10-16 07:46 | disposition home or self-care (01) ==
LOC: HO.LAB 07:45
PROVIDERS: PCP Internal Medicine; Visit Provider Internal Medicine
DX: E03.8 Other specified hypothyroidism (principal); E55.9 Vitamin D deficiency, unspecified
CPT/HCPCS: 36415; 82040; 82306; 83970; 84100; 84439; 84443

== ENCOUNTER 2021-10-30 10:17 | Emergency (ER) | payer MEDICARE, SELFPAY ==
--- NOTE | ~2021-10-30 | CT_ITS ---
EXAMINATION: CT head/brain wo con CLINICAL INFORMATION: Reason for Exam dizziness COMPARISON: CT head without contrast 01/03/2012 TECHNIQUE: Contiguous axial imaging was performed from the skull base to vertex without intravenous contrast. Sagittal and coronal reformatted images were obtained. This CT examination was performed using dose optimization techniques as appropriate, variously including the following: * Automated exposure control * Adjustment of mA and/or kV according to patient size (this includes techniques or standardized protocols for targeted exams where dose is matched to indication/reason for exam; i.e. extremities or head) Use of iterative reconstruction technique DLP: 701 mGy-cm FINDINGS: No acute osseous or soft tissue abnormality. Mild scattered paranasal sinus mucosal thickening. The mastoid air cells are clear. There is no evidence of acute intracranial hemorrhage or territorial infarction. No abnormal mass effect or midline shift is seen. Mccollum to white matter differentiation is well preserved. No extra-axial fluid collections are identified. No hydrocephalus. No significant volume loss. There is no abnormal attenuation within the brain parenchyma. CT/CT head/brain wo con IMPRESSION: No acute intracranial abnormality including hemorrhage, mass effect, hydrocephalus, or acute territorial edematous infarction.
--- NOTE | ~2021-10-30 | XR_ITS ---
EXAMINATION: XR CHEST CLINICAL INFORMATION: Generalized weakness COMPARISON: August 21, 2021 TECHNIQUE: AP portable view of the chest was obtained. FINDINGS: There appears to be some mildly increased interstitial markings at the lung bases which may be related to atelectasis. No confluent pneumonitis is identified. No pneumothorax or pleural effusion. Heart normal size. No evidence of pulmonary edema. XR/XR chest 1V IMPRESSION: No significant acute parenchymal disease.
--- NOTE | ~2021-10-30 | CT_ITS ---
EXAMINATION: CT ABDOMEN AND PELVIS WITH CONTRAST CLINICAL INFORMATION: Black stool weakness concern for GI bleed COMPARISON: CT chest from 05/28/2021 TECHNIQUE: Multidetector volumetric images were obtained from the superior aspect of the liver through the pubic symphysis following administration 85 mL of Omnipaque 350 intravenous contrast. Sagittal and coronal reformatted images were obtained on the technologist's workstation. Oral contrast: No This CT examination was performed using dose optimization techniques as appropriate, variously including the following: *Automated exposure control *Adjustment of mA and/or kV according to patient size (this includes techniques or standardized protocols for targeted exams where dose is matched to indication/reason for exam; i.e. extremities or head) *Use of iterative reconstruction technique DLP: 606 mGy-cm FINDINGS: LUNG BASES: There are motion artifact limits evaluation of the visualized lung llamas. Redemonstration of pulmonary nodules for example in the region of the lingula (series 4, image 62) measuring 3 mm, stable. Pleural-based along the posterior lateral aspect of the left lower lobe (series 4, image 97) measuring 8 mm, stable. Bibasilar atelectasis versus scarring. No pericardial effusion. No large pleural effusion. No pneumothorax. LIVER, GALLBLADDER, AND BILIARY TREE: The liver is normal in size, shape, and attenuation. No focal hepatic lesion or biliary ductal dilatation is present. The gallbladder is contracted versus surgically absent. PANCREAS: Fatty infiltration of the pancreas. SPLEEN: Unremarkable. ADRENAL GLANDS: Unremarkable. KIDNEYS AND URETERS: Hypodense foci involving the right kidney the largest in the interpolar region demonstrating fluid attenuation statistically representing cyst measuring up to 4.6 cm. No right-sided nephrolithiasis or hydronephrosis. Subcentimeter hypodensities in the left renal lower pole, too small to characterize though statistically representing cysts. No left-sided nephrolithiasis or hydronephrosis BLADDER: Prominently distended urinary bladder GASTROINTESTINAL TRACT: Small hiatal hernia. Colonic diverticulosis without acute diverticulitis. No evidence of intraluminal contrast extravasation. The small and large bowel are unremarkable. The appendix is unremarkable. ABDOMINAL WALL: Small fat filled umbilical hernia. LYMPH NODES: No enlarged lymph nodes per size criteria. VASCULAR: Abdominal aorta is nonaneurysmal. Atherosclerotic calcifications of the abdominal aorta and its branches. PELVIC VISCERA: Prostate is enlarged measuring 6.1 x 4.4 cm. OSSEOUS STRUCTURES: Multilevel degenerative changes of the thoracolumbar and lumbosacral spine. No large lytic or blastic lesions are noted. Degenerative changes of the bilateral sacroiliac joints. CT/CT abdomen pelvis w con IMPRESSION: 1. No acute process of the abdomen or pelvis identified. 2. No evidence of intraluminal gastrointestinal contrast extravasation. Small hiatal hernia. Colonic diverticulosis without acute diverticulitis. 3. Redemonstration of pulmonary nodules, stable. 4. Hypodense foci involving the bilateral kidneys, statistically representing cysts. 5. Prominently distended urinary bladder 6. Prostate is enlarged measuring 6.1 x 4.4 cm.
[2021-10-30 10:31] VITALS: BP 146/69; PULSE 71; RESP 18; TEMP 36.4; O2SAT 99; BMI 25.5
--- NOTE | 2021-10-30 10:37 | ECG_ITS ---
Test Reason : WEAKNESS Blood Pressure : / mmHG Vent. Rate : 077 BPM Atrial Rate : 077 BPM P-R Int : 180 ms QRS Dur : 080 ms QT Int : 380 ms P-R-T Axes : 046 -21 022 degrees QTc Int : 430 ms Normal sinus rhythm Normal ECG When compared with ECG of 21-AUG-2021 13:51, No significant change was found Referred By: Generic ED Physician Electronically Signed By:AYNIRA GILLIS
[2021-10-30 11:10] LABS: MANUAL DIFF FLAG NO
[2021-10-30 11:14] LABS: Basophils Absolute Auto 0.1 X10*3/uL (0.0-0.2); Basophils Percent Auto 0.6 % (0-2); Eosinophils Absolute Auto 0.1 X10*3/uL (0.0-0.4); Eosinophils Percent Auto 1.3 % (0-4); Hematocrit 38.5 % (42.0-52.0); Hemoglobin 12.1 g/dl (14.0-18.0); Imm Gran Abs Auto 0.05 X10*3/uL (0.00-0.03); Imm Gran Pct Auto 0.6 % (0.0-0.4); Lymphocytes Absolute Auto 2.2 X10*3/uL (1.2-4.9); Lymphocytes Percent Auto 26.3 % (20-40); Mean Corpuscular HGB Conc 31.4 g/dl (31.0-36.0); Mean Corpuscular Volume 89.1 fL (80.0-98.0); Mean Platelet Volume 9.7 fL (9.4-12.4); Monocytes Absolute Auto 0.4 X10*3/uL (0.1-1.2); Monocytes Percent Auto 4.8 % (2-11); Neutrophils Absolute Auto 5.7 x10*3/uL (2.0-8.3); Neutrophils Percent Auto 66.4 % (45-73); Platelet Count 284 X10*3/uL (160-400); Red Blood Count 4.32 X10*6/uL (4.60-5.80); Red Cell Distribution Width 12.3 % (11.0-16.0); White Blood Count 8.5 X10*3/uL (4.8-10.8)
[2021-10-30 11:17] LABS: Prothrombin Time 11.8 SEC (10.0-13.1)
[2021-10-30 11:20] LABS: Partial Thromboplastin Time 34.1 SEC (26.0-36.4)
[2021-10-30 11:28] LABS: Anion Gap 11 (12-20); Blood Urea Nitrogen 10 mg/dL (9-16); Calcium 8.8 mg/dL (8.4-10.2); Carbon Dioxide 24 mmol/L (22-29); Chloride 102 mmol/L (96-108); Creatinine Clr Calc Pharmacy 83.6; Estimated Glomerular Filt Rate > 60; Glucose Random 205 mg/dL (60-115); Potassium 4.6 mmol/L (3.3-5.1); Sodium 132 mmol/L (135-145)
[2021-10-30 11:36] LABS: Troponin-I High Sensitivity < 3.5 ng/L (<3.5-35.0)
[2021-10-30 11:54] LABS: Appearance Urine CLEAR; Color Urine YELLOW; Glucose Urine UA NEG (NEG); Leukocyte Esterase Urine NEG (NEG); Nitrite Urine NEG (NEG); Specific Gravity - Urine <= 1.005 (1.005-1.025); Urine Blood NEG (NEG); Urine Ketones NEG (NEG); Urine Protein NEG (NEG-TRACE)
[2021-10-30 14:12] VITALS: BP 141/80; PULSE 85; RESP 18; O2SAT 100
[2021-10-30 14:40] LABS: Alanine Aminotransferase 20 U/L (0-40); Alkaline Phosphatase 106 U/L (39-117); Aspartate Amino Transferase 19 U/L (5-37); Bilirubin Direct 0.3 mg/dL (0.0-0.5); Bilirubin Total 0.5 mg/dL (0.0-1.0); Lipase 20 U/L (8-78); Total Protein 6.8 g/dL (6.5-8.0)
[2021-10-30 14:48] LABS: OBS Int Ctl Valid YES; OBS1 NEGATIVE (NEGATIVE)
[2021-10-30] MEDS: iohexoL 350 MG/ML 100 ML INFUS..BTL IV (14:54)
--- NOTE | 2021-10-30 14:57 | ED_ITS ---
HPI - General Adult General Chief complaint: GI Bleed Stated complaint: black stools Time Seen by Provider: 10/30/21 14:07 Source: patient Mode of arrival: ambulatory History of Present Illness HPI narrative: 71-year-old male with a past medical history of Jadiel's, HTN, hypothyroid, restrictive lung disease, ascending aortic dilation, CAD on Brilinta/ASA, presenting to the ED complaining of generalized fatigue /weakness since yeste rday with difficulty ambulating secondary to fatigue. Reports dizziness yesterday, none at present. Admits went to [facility] yesterday and had to sit down multiple times to rest. Also reports multiple episodes of black stool since yesterday. Denies bloody BMs, focal weakness, headache, vision change, chest pain, shortness of breath, abdominal pain, nausea, vomiting, diarrhea Onset (ago): day(s) Related Data Home Medications Medication Instructions Recorded Confirmed acetaminophen 500 mg tablet 1,000 mg PO Q6H PRN Pain 10/30/21 10/30/21 cholecalciferol (vitamin D3) 50 50 mcg PO BID 10/30/21 10/30/21 mcg (2,000 unit) capsule omeprazole 20 mg capsule,delayed 20 mg PO BID 10/30/21 10/30/21 release Previous Rx's Medication Instructions Recorded Cane #1 ea 10/29/20 atorvastatin 80 mg tablet 80 mg PO BEDTIME 30 days #30 tabs 08/20/21 metoprolol tartrate 25 mg tablet 12.5 mg PO BID #90 tabs 09/17/21 ticagrelor 90 mg tablet (Brilinta) 90 mg PO BID 90 days #180 tabs 09/17/21 aspirin 81 mg tablet,delayed 81 mg PO DAILY 90 days #90 tabs 09/19/21 release levothyroxine 75 mcg tablet 75 mcg PO DAILY 30 days #30 tabs 10/20/21 Allergies Allergy/AdvReac Type Severity Reaction Status Date / Time aspirin [ASPIRIN] Allergy Severe G6PD Verified 10/30/21 10:31 DEFICIENCY blue dye [BLUE DYE] Allergy Unknown G6PD Verified 10/30/21 10:31 Sulfa (Sulfonamide Allergy Unknown UNKNOWN Verified 10/30/21 10:31 Antibiotics) [SULFA(SULFONAMIDE ANTIBIOTICS)] BEANS. BAKED Allergy Severe BRE BEANS Uncoded 08/28/21 09:47 ( G6PD DEFICINCEY Review of Systems Review of Systems: Constitutional: No Fever, No Chills, No Night Sweats, + Fatigue, + Malaise ENT/Mouth: No Hearing loss, No Ear Pain, No Nasal Congestion, No sore throat, No Rhinorrhea, No Swallowing Difficulty Eyes: No Eye Pain, No Swelling, No Redness, No Vision Changes Cardiovascular: No Chest Pain, No SOB, No Dyspnea on Exertion, No Orthopnea, No Edema, No Palpitations Respiratory: No Cough, No Sputum, No Dyspnea Gastrointestinal: No Nausea, No Vomiting, No Diarrhea, No Constipation, No Abdominal pain, No Hematochezia, + Melena Genitourinary: No Dysuria, No Urinary Frequency, No Hematuria, No Urinary Incontinence/retention, No Flank Pain Musculoskeletal: No joint pain, No Myalgias, No Joint Swelling Skin: No Skin Lesions, No rash Neuro: + Weakness, No Numbness, No Paresthesias, No Loss of Consciousness, + Dizziness (not at present), No Headache Yes all other systems are reviewed and are negative Constitutional: Constitutional: Reports as per [facility] Past Medical History Attestation statement: The following information was validated with the patient. Medical History Chronic cough Dysphagia Jadiel's disease Hypertension Hypothyroidism Mild ascending aorta dilatation Non-toxic multinodular goiter Pulmonary nodules Restrictive lung disease Subclinical hypothyroidism Vitamin D deficiency Surgical History History of thyroid surgery Hx of cholecystectomy Family History Family History Father Hypertension Heart disease Mother Hypertension Social History Social History Household Members: Spouse and Children Housing: House Alcohol intake: never Patient Tobacco Use Status: Never used Tobacco e-Cigarette/Vaping Use: Never Used Advance Directives: No Advance Directives Information Provided: No Current occupational status: retired Cognitive needs: No Hearing needs: No Vision needs: Yes Physical Exam ED Vital Signs: Vital Signs - 24 hr 10/30/21 10:31 10/30/21 14:12 10/30/21 18:16 Temperature 97.6 F Pulse Rate 71 85 57 Respiratory Rate 18 18 Blood Pressure 146/69 H 141/80 H 143/69 H Pulse Oximetry 99 100 Oxygen Delivery Method Room Air Room Air 10/30/21 18:17 10/30/21 18:18 Temperature Pulse Rate 59 68 Respiratory Rate Blood Pressure 155/76 H 155/70 H Pulse Oximetry Oxygen Delivery Method BMI result Body Mass Index 25.5 Const General: cooperative and no acute distress Orientation/consciousness: patient oriented x3 Limitations: no limitations HENMT Head: Yes normal to inspection and Yes atraumatic Ears: hearing grossly normal bilaterally General nose exam: Normal external nose present Face and sinus: Yes normal facial exam Eyes General: appearance normal, both eyes and all related structures EOM: EOMs intact bilaterally Neck Neck: Yes normal visual inspection and Yes no meningeal signs Resp Effort & Inspection: normal respiratory effort and no respiratory distress Auscultation: clear to auscultation bilaterally, no rales, no rhonchi and no wheezes Cardio Rate: regular rate Heart sounds: S1 normal heart sound present and S2 normal heart sound present GI Inspection: Yes normal to inspection Palpation (GI): Soft to palpation, nontender, no guarding and not rigid Rectal Exam - Male: Yes visual inspection normal General: Yes no CVA tenderness Back/Spine/Pelvis Back: no CVA tenderness Skin Rashes: no rashes Wounds: no wounds Neuro General: patient oriented x3, tone normal, moves all extremities, no meningeal signs, no focal motor deficits and CN's II-XI intact bilaterally Cranial nerves: Yes CN's II-XII intact bilaterally and Yes Bilaterally intact EOM present Cognition (Neuro): normal cognition Motor exam (neuro): 5/5 motor strength present throughout and Pronator motor function not present Deep tendon reflexes (DTR's): Right patellar reflex intensity grade: 2+ and Left patellar reflex intensity grade: 2+ Coordination: [id number] test normal Romberg Test: Negative Extrem General: Yes normal to inspection, Yes no pedal edema and Yes no calf tenderness Course Course Course Narrative: -1609-- H&H stable, minimally lower than baseline. Labs otherwise reassuring. Troponin negative. UA negative >> will obtain repeat CBC to eval for any drop in H&H - occult stool negative CT abdomen pelvis w con IMPRESSION: 1.? No acute process of the abdomen or pelvis identified.? 2.? No evidence of intraluminal gastrointestinal contrast extravasation. Small hiatal hernia. Colonic diverticulosis without acute diverticulitis. 3.? Redemonstration of pulmonary nodules, stable. 4.? Hypodense foci involving the bilateral kidneys, statistically representing cysts. 5.? Prominently distended urinary bladder 6.? Prostate is enlarged measuring 6.1 x 4.4 cm. XR chest 1V IMPRESSION: No significant acute parenchymal disease. ? - repeat H&H stable, 12.1/38.5 to 11.8/37.3 and patient received 1 L IVF. Orth ostatic vital signs are negative. - Patient ambulated in the ED with steady gait. reports intermittent lightheadedness and room spinning dizziness x1 year worsening over the past few months. discussed with patient likely needs brain MRI/ CT. With shared decision making patient would like to obtain CT today. Low concern for acute CVA/TIA 2032--CT head/brain wo con IMPRESSION: ? No acute intracranial abnormality including hemorrhage, mass effect, hydrocephalus, or acute territorial edematous infarction. Results discussed with patient and daughter at bedside including worrisome signs and symptoms and strict return precautions and need a close follow-up with PCP. They verbalized understanding and feel safe for discharge home Medical Decision Making MDM Narrative Medical decision making narrative: 71-year-old male with a past medical history of Jadiel's, HTN, hypothyroid, restrictive lung disease, ascending aortic dilation, CAD on Brilinta/ASA, presenting to the ED complaining of generalized fatigue /weakness since yesterday with difficulty ambulating secondary to fatigue. Reports dizziness yesterday, none at present. Also reports multiple episodes of black stool since yesterday. On exam vital signs stable, NAD, nontoxic appearing, abdomen soft and nontender, no focal neuro deficits, DTRs intact. Concern for upper GI bleed/ anemia vs metabolic or infectious etiologies. Lower concern for demyelinating process/CVA plan: EKG, labs, UA, CXR, CT abdomen / pelvis, orthostatic vital signs, re- evaluate Medical Records Medical records reviewed: Yes I reviewed the patient's medical records. Lab Data Lab results reviewed: Yes I reviewed the patient's lab results. Result diagrams: 10/30/21 17:29 10/30/21 11:05 Labs: Lab Results 10/30/21 10/30/21 10/30/21 Range/Units 11:03 11:04 11:05 WBC 8.5 (4.8-10.8) X10*3/uL RBC 4.32 L (4.60-5.80) X10*6/uL Hgb 12.1 L (14.0-18.0) g/dl Hct 38.5 L (42.0-52.0) % MCV 89.1 (80.0-98.0) fL MCH 28.0 (27.0-33.0) pg MCHC 31.4 (31.0-36.0) g/dl RDW 12.3 (11.0-16.0) % Plt Count 284 (160-400) X10*3/uL MPV 9.7 (9.4-12.4) fL Immature Gran % (Auto) 0.6 H (0.0-0.4) % Neut % (Auto) 66.4 (45-73) % Lymph % (Auto) 26.3 (20-40) % [place] % (Auto) 4.8 (2-11) % Eos % (Auto) 1.3 (0-4) % Baso % (Auto) 0.6 (0-2) % Lymph # (Auto) 2.2 (1.2-4.9) X10*3/uL [place] # (Auto) 0.4 (0.1-1.2) X10*3/uL Eos # (Auto) 0.1 (0.0-0.4) X10*3/uL Baso # (Auto) 0.1 (0.0-0.2) X10*3/uL Abs Immat Gran (auto) 0.05 H (0.00-0.03) X10*3/uL Absolute Neuts (auto) 5.7 (2.0-8.3) x10*3/uL Absolute Nucleated RBC 0.000 (0.0-0.012) X10*3/uL Nucleated RBC % (auto) 0.0 (0.0-0.2) /100WBC PT 11.8 (10.0-13.1) SEC INR 1.0 (0.9-1.1) APTT 34.1 (26.0-36.4) SEC Sodium (135-145) mmol/L Potassium (3.3-5.1) mmol/L Chloride (96-108) mmol/L Carbon Dioxide (22-29) mmol/L Anion Gap (12-20) BUN (9-16) mg/dL Creatinine (0.5-1.4) mg/dL Estim Creat Clear Calc Estimated GFR Random Glucose (60-115) mg/dL Calcium (8.4-10.2) mg/dL Magnesium (1.6-2.6) mg/dL Total Bilirubin (0.0-1.0) mg/dL Direct Bilirubin (0.0-0.5) mg/dL AST (5-37) U/L ALT (0-40) U/L Alkaline Phosphatase (39-117) U/L Troponin I High Sens < 3.5 (<3.5-35.0) ng/L Total Protein (6.5-8.0) g/dL Albumin (3.5-5.0) g/dL Lipase (8-78) U/L Urine Color Urine Appearance Urine pH (5.0-8.0) Ur Specific [place] (1.005-1.025) Urine Protein (NEG-TRACE) MG/DL Urine Glucose (UA) (NEG) MG/DL Urine Ketones (NEG) MG/DL Urine Blood (NEG) Urine Nitrite (NEG) Ur Leukocyte Esterase (NEG) Stool Occult Blood (NEGATIVE) 10/30/21 10/30/21 10/30/21 Range/Units 11:05 11:36 14:22 WBC (4.8-10.8) X10*3/uL RBC (4.60-5.80) X10*6/uL Hgb (14.0-18.0) g/dl Hct (42.0-52.0) % MCV (80.0-98.0) fL MCH (27.0-33.0) pg MCHC (31.0-36.0) g/dl RDW (11.0-16.0) % Plt Count (160-400) X10*3/uL MPV (9.4-12.4) fL Immature Gran % (Auto) (0.0-0.4) % Neut % (Auto) (45-73) % Lymph % (Auto) (20-40) % [place] % (Auto) (2-11) % Eos % (Auto) (0-4) % Baso % (Auto) (0-2) % Lymph # (Auto) (1.2-4.9) X10*3/uL [place] # (Auto) (0.1-1.2) X10*3/uL Eos # (Auto) (0.0-0.4) X10*3/uL Baso # (Auto) (0.0-0.2) X10*3/uL Abs Immat Gran (auto) (0.00-0.03) X10*3/uL Absolute Neuts (auto) (2.0-8.3) x10*3/uL Absolute Nucleated RBC (0.0-0.012) X10*3/uL Nucleated RBC % (auto) (0.0-0.2) /100WBC PT (10.0-13.1) SEC INR (0.9-1.1) APTT (26.0-36.4) SEC Sodium 132 L (135-145) mmol/L Potassium 4.6 (3.3-5.1) mmol/L Chloride 102 (96-108) mmol/L Carbon Dioxide 24 (22-29) mmol/L Anion Gap 11 L (12-20) BUN 10 (9-16) mg/dL Creatinine 0.81 (0.5-1.4) mg/dL Estim Creat Clear Calc 83.6 Estimated GFR > 60 Random Glucose 205 H D (60-115) mg/dL Calcium 8.8 (8.4-10.2) mg/dL Magnesium 2.0 (1.6-2.6) mg/dL Total Bilirubin 0.5 (0.0-1.0) mg/dL Direct Bilirubin 0.3 (0.0-0.5) mg/dL AST 19 (5-37) U/L ALT 20 (0-40) U/L Alkaline Phosphatase 106 (39-117) U/L Troponin I High Sens (<3.5-35.0) ng/L Total Protein 6.8 (6.5-8.0) g/dL Albumin 4.0 (3.5-5.0) g/dL Lipase 20 (8-78) U/L Urine Color YELLOW Urine Appearance CLEAR Urine pH 6.0 (5.0-8.0) Ur Specific [place] <= 1.005 (1.005-1.025) Urine Protein NEG (NEG-TRACE) MG/DL Urine Glucose (UA) NEG (NEG) MG/DL Urine Ketones NEG (NEG) MG/DL Urine Blood NEG (NEG) Urine Nitrite NEG (NEG) Ur Leukocyte Esterase NEG (NEG) Stool Occult Blood NEGATIVE (NEGATIVE) 10/30/21 Range/Units 17:29 WBC 10.8 (4.8-10.8) X10*3/uL RBC 4.20 L (4.60-5.80) X10*6/uL Hgb 11.8 L (14.0-18.0) g/dl Hct 37.3 L (42.0-52.0) % MCV 88.8 (80.0-98.0) fL MCH 28.1 (27.0-33.0) pg MCHC 31.6 (31.0-36.0) g/dl RDW 12.4 (11.0-16.0) % Plt Count 287 (160-400) X10*3/uL MPV 10.1 (9.4-12.4) fL Immature Gran % (Auto) 0.3 (0.0-0.4) % Neut % (Auto) 64.0 (45-73) % Lymph % (Auto) 27.4 (20-40) % [place] % (Auto) 6.2 (2-11) % Eos % (Auto) 1.5 (0-4) % Baso % (Auto) 0.6 (0-2) % Lymph # (Auto) 3.0 (1.2-4.9) X10*3/uL [place] # (Auto) 0.7 (0.1-1.2) X10*3/uL Eos # (Auto) 0.2 (0.0-0.4) X10*3/uL Baso # (Auto) 0.1 (0.0-0.2) X10*3/uL Abs Immat Gran (auto) 0.03 (0.00-0.03) X10*3/uL Absolute Neuts (auto) 6.9 (2.0-8.3) x10*3/uL Absolute Nucleated RBC 0.000 (0.0-0.012) X10*3/uL Nucleated RBC % (auto) 0.0 (0.0-0.2) /100WBC PT (10.0-13.1) SEC INR (0.9-1.1) APTT (26.0-36.4) SEC Sodium (135-145) mmol/L Potassium (3.3-5.1) mmol/L Chloride (96-108) mmol/L Carbon Dioxide (22-29) mmol/L Anion Gap (12-20) BUN (9-16) mg/dL Creatinine (0.5-1.4) mg/dL Estim Creat Clear Calc Estimated GFR Random Glucose (60-115) mg/dL Calcium (8.4-10.2) mg/dL Magnesium (1.6-2.6) mg/dL Total Bilirubin (0.0-1.0) mg/dL Direct Bilirubin (0.0-0.5) mg/dL AST (5-37) U/L ALT (0-40) U/L Alkaline Phosphatase (39-117) U/L Troponin I High Sens (<3.5-35.0) ng/L Total Protein (6.5-8.0) g/dL Albumin (3.5-5.0) g/dL Lipase (8-78) U/L Urine Color Urine Appearance Urine pH (5.0-8.0) Ur Specific [place] (1.005-1.025) Urine Protein (NEG-TRACE) MG/DL Urine Glucose (UA) (NEG) MG/DL Urine Ketones (NEG) MG/DL Urine Blood (NEG) Urine Nitrite (NEG) Ur Leukocyte Esterase (NEG) Stool Occult Blood (NEGATIVE) Discharge Plan Discharge Clinical Impression: Generalized weakness Patient Disposition: Home, Self-Care Instructions: Weakness (ED) Additional Instructions: your blood work was reassuring today in the emergency department. your CT scan and chest x-ray were unremarkable. It is very important for you to stay hydrated at home. Have close follow-up with your doctor. Her stool was negative for blood. Continue home prescribed medications. If symptoms persist or worsen, you have persistent weakness, developed chest pain, shortness of breath, abdominal pain please return to the emergency depar tment Prescriptions: No Action (DME) Cane See Rx Instructions .Route .MEDSUPPLY Qty: 1 0RF Rx Instructions: As directed atorvastatin 80 mg tablet 80 mg PO BEDTIME 30 Days Qty: 30 3RF Rx Instructions: Cholesterol lowering agent Brilinta 90 mg tablet 90 mg PO BID 90 Days Qty: 180 1RF metoprolol tartrate 25 mg tablet 12.5 mg PO BID Qty: 90 1RF aspirin 81 mg tablet,delayed release (DR/EC) 81 mg PO DAILY 90 Days Qty: 90 2RF levothyroxine 75 mcg tablet 75 mcg PO DAILY 30 Days Qty: 30 11RF acetaminophen 500 mg Tablet 1,000 mg PO Q6H PRN (Reason: Pain) omeprazole 20 mg capsule,delayed release(DR/EC) 20 mg PO BID cholecalciferol (vitamin D3) 50 mcg (2,000 unit) capsule 50 mcg PO BID Referrals: Irma Reyes MD [Primary Care Provider] - 2 days
[2021-10-30] MEDS: 0.9 % Sodium Chloride 1,000 ML 999 ML IV (15:22)
[2021-10-30 17:34] LABS: MANUAL DIFF FLAG NO
[2021-10-30 17:46] LABS: Basophils Absolute Auto 0.1 X10*3/uL (0.0-0.2); Basophils Percent Auto 0.6 % (0-2); Eosinophils Absolute Auto 0.2 X10*3/uL (0.0-0.4); Eosinophils Percent Auto 1.5 % (0-4); Hematocrit 37.3 % (42.0-52.0); Hemoglobin 11.8 g/dl (14.0-18.0); Imm Gran Abs Auto 0.03 X10*3/uL (0.00-0.03); Imm Gran Pct Auto 0.3 % (0.0-0.4); Lymphocytes Percent Auto 27.4 % (20-40); Mean Corpuscular HGB Conc 31.6 g/dl (31.0-36.0); Mean Corpuscular Hemoglobin 28.1 pg (27.0-33.0); Mean Corpuscular Volume 88.8 fL (80.0-98.0); Mean Platelet Volume 10.1 fL (9.4-12.4); Monocytes Absolute Auto 0.7 X10*3/uL (0.1-1.2); Monocytes Percent Auto 6.2 % (2-11); Neutrophils Absolute Auto 6.9 x10*3/uL (2.0-8.3); Platelet Count 287 X10*3/uL (160-400); Red Cell Distribution Width 12.4 % (11.0-16.0); White Blood Count 10.8 X10*3/uL (4.8-10.8)
[2021-10-30 18:16] VITALS: BP 143/69; PULSE 57
[2021-10-30 18:17] VITALS: BP 155/76; PULSE 59
[2021-10-30 18:18] VITALS: BP 155/70; PULSE 68
--- NOTE | 2021-10-30 18:30 | PHA.MEDREC ---
Pharmacy Consult ? Medication Reconciliation Pharmacy has completed the medication reconciliation. Patient confirmed all medication. Patient reported he is no longer taking losartan. Amrita Warner, PharmD
--- NOTE | 2021-10-30 19:30 | PC.NURSE ---
report received from Delvin ALVAREZ. pt laying comfortably on stretcher, no current complaints. family at bedside. waiting for CT scan. call zuniga within reach. will continue to monitor
== END 2021-10-30 20:52 | disposition home or self-care (01) ==
PROVIDERS: Physician Assistant; Emergency Provider Student in an Organized Health Care Education/Training Program; PCP Internal Medicine
DX: K92.2 Gastrointestinal hemorrhage, unspecified (principal); R53.1 Weakness; R51.9 Headache, unspecified; R10.9 Unspecified abdominal pain; Z79.899 Other long term (current) drug therapy
CPT/HCPCS: 36415; 70450; 71045; 74177; 80048; 80076; 81003; 82272; 83690; 83735; 84484; 85025; 85610; 85730; 93005; 96360; 99284; Q9967

== ENCOUNTER → 2021-11-03 09:04 | Outpatient (BNVA) | payer MEDICARE, SELFPAY | PROVIDERS: PCP Internal Medicine; Visit Provider Internal Medicine | DX: E03.9 Hypothyroidism, unspecified (principal); E04.2 Nontoxic multinodular goiter; R13.10 Dysphagia, unspecified; Z79.899 Other long term (current) drug therapy | CPT/HCPCS: 99212 ==

== ENCOUNTER → 2022-01-07 10:24 | Outpatient (BNVA) | payer MEDICARE, SELFPAY | PROVIDERS: PCP Internal Medicine; Referring Provider Internal Medicine; Visit Provider Internal Medicine | DX: I25.10 Atherosclerotic heart disease of native coronary artery without angina pectoris (principal); I77.810 Thoracic aortic ectasia; I35.1 Nonrheumatic aortic (valve) insufficiency; I10 Essential (primary) hypertension; G47.9 Sleep disorder, unspecified; Z79.82 Long term (current) use of aspirin; Z79.899 Other long term (current) drug therapy | CPT/HCPCS: 99212 ==

== ENCOUNTER → 2022-03-10 13:31 | Outpatient (BNVA) | payer MEDICARE, SELFPAY | PROVIDERS: PCP Internal Medicine; Visit Provider Nurse Practitioner Family | DX: G47.9 Sleep disorder, unspecified (principal); R06.83 Snoring; G47.19 Other hypersomnia; G47.52 REM sleep behavior disorder; I25.10 Atherosclerotic heart disease of native coronary artery without angina pectoris; I10 Essential (primary) hypertension; I71.40 Abdominal aortic aneurysm, without rupture, unspecified; D75.A Glucose-6-phosphate dehydrogenase (G6PD) deficiency without anemia; Z95.5 Presence of coronary angioplasty implant and graft | CPT/HCPCS: 99202 ==

== ENCOUNTER 2022-03-18 14:34 | Outpatient (AMB) | payer MEDICARE, SELFPAY ==
--- NOTE | 2022-03-18 14:38 | A.OFFVIS_ITS ---
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 BAKED Allergy (Severe, Uncoded 09/29/22 09:35) BRE BEANS ( G6PD DEFICINCEY Medication List - Last Reconciled 11/19/22 by Elvin Caro MD acetaminophen 1,000 mg PO Q6H PRN alirocumab (Praluent Pen) 75 mg subcut Q14D 90 days aspirin 81 mg PO DAILY 90 days [Cane As directed] cholecalciferol (vitamin D3) 50 mcg PO ONCE levothyroxine 75 mcg PO DAILY 30 days metoprolol tartrate 12.5 mg (1/2 x 25 mg) PO BID omeprazole 20 mg PO BID 90 days HPI HPI Comments History of Present Illness Details Melquiades is a pleasant Japanese male. He is a patient of . He seen for the following urologic conditions - bladder outlet obstruction Lower urinary tract symptoms Prior known large prostate Adequate stream Minimal residual Minimal nocturia Pre with current performance KELLY normal PSA 03/22 1.6 P.r.n. follow-up FOR[facility]LY [facility], [facility] Medical History (Updated 09/29/22 @ 09:45 by Mily Rehman MD) Chronic cough Dysphagia Dyspnea on exertion Jadiel's disease Hypertension Hypothyroidism Mild ascending aorta dilatation Non-toxic multinodular goiter Pulmonary nodules Restrictive lung disease Subclinical hypothyroidism Vitamin D deficiency Surgical History History of thyroid surgery Hx of cholecystectomy Hx of heart artery stent Family History Father Hypertension Heart disease Diabetes Mother Hypertension Brother Myocardial infarction Social History Household Members: Spouse and Children Housing: House Alcohol intake: never Patient Tobacco Use Status: Never used Tobacco e-Cigarette/Vaping Use: Never Used Current occupational status: retired Cognitive needs: No Hearing needs: No Vision needs: Yes Review of Systems Const Denies chills and Denies fever(s) Card Reports no additional complaints and Denies syncope Resp Denies cough GI Denies abdominal pain and Denies heartburn Reports as per HPI and Denies change in libido Neuro Denies syncope Psych Denies change in libido Endo Denies change in libido Physical Exam Const General: cooperative, healthy appearing, comfortable and no acute distress Orientation/consciousness: patient oriented x3 HEENT Face and sinus: Yes normal facial exam Mouth: moist mucous membranes Neck Neck: Yes normal visual inspection, Yes full ROM and Yes trachea midline Chest Chest palpation & inspection: normal inspection of the chest Resp Effort & Inspection: normal respiratory effort, able to speak in complete sentences and no respiratory distress GI Inspection: Yes normal to inspection Rectal Exam - Male: Yes normal sphincter tone and Yes prostate normal Male General Exam: Yes normal external exam Penis: normal penis and circumcised Meatus: meatus normal Scrotum: scrotum normal Testes: Testes normal Back/Spine/Pelvis Cervical Spine: normal cervical lordosis Thoracic/Lumbar Spine: thoracic and lumbar spine normal to inspection Skin General skin exam: no rashes or lesions noted Neuro General: patient oriented x3, gait normal, tone normal and moves all extremities Extrem General: Yes normal to inspection and Yes capillary refill normal Office Procedures Post Void Residual Post Residual Void Post Void Residual (PVR): 0 [id number] Void Residual by ultrasound Assessment & Plan Assessment & Plan (1) BPH (benign prostatic hyperplasia): Code(s): N40.0 - Benign prostatic hyperplasia without lower urinary tract symptoms Plan P.r.n. follow-up Orders: Orders AMB Urinalysis Automated 03/18/22 Z13.9 - Encounter for screening, unspecified AMB Post Void Residual by ultrasound 03/18/22 N40.0 - Benign prostatic hyperplasia without lower urinary tract symptoms Patient Instructions: Imaging studies, laboratory and physical exam results were discussed and reviewed in detail. No major barriers to patient understanding were identified. An opportunity to ask questions regarding the treatment plan was provided. All questions were answered. The patient expressed understanding and agreement with the above treatment plan. The patient is aware they should contact our office by phone for worsening of their current condition or the appearance of new urologic symptoms. Compliance is encouraged with any medications and followup testing that is ordered. It is a privilege to participate in the urologic care of your patient. If you have any questions or concerns regarding treatment for the above conditions, or other urologic issues, please do not hesitate to contact me. The office telephone contact is [phone]. This note is constructed using voice recognition software. While every effort has been made to ensure accuracy electronics technician errors may have been included. Yours sincerely, Dr Elvin Caro MD, [facility] - Urology Providers of Expert, Compassionate Care for the Genitourinary System Coding Level of Care Code New Pt Level 3 (69626) Diagnoses BPH (benign prostatic hyperplasia) N40.0 CPT Codes Post Residual Void - PVR CPT Code: 97493-Atxx Void Residual by ultrasound ([id number])
== END 2022-03-18 15:14 | disposition home or self-care (01) ==
LOC: HO.HUSH 14:34
PROVIDERS: PCP Internal Medicine; Visit Provider Urology
DX: N40.0 Benign prostatic hyperplasia without lower urinary tract symptoms (principal)
CPT/HCPCS: 99203

== ENCOUNTER → 2022-03-18 14:34 | Outpatient (BNVA) | payer MEDICARE, SELFPAY | PROVIDERS: PCP Internal Medicine; Visit Provider Urology | DX: N40.0 Benign prostatic hyperplasia without lower urinary tract symptoms (principal) | CPT/HCPCS: 51798; 99202 ==

== ENCOUNTER 2022-03-20 08:35 | Outpatient (REF) | payer MEDICARE, SELFPAY ==
[2022-03-20 10:05] LABS: Hematocrit 43.4 % (42.0-52.0); Hemoglobin 13.2 g/dl (14.0-18.0)
[2022-03-20 12:32] LABS: Cholesterol 118 mg/dL; Free T4 (Free Thyroxine) 1.14 ng/dL (0.71-1.85); HDL Cholesterol 42 mg/dL; LDL Cholesterol Calculated 47 mg/dl; Triglycerides 149 mg/dL
[2022-03-20 14:31] LABS: Thyroid Stimulating Hormone 2.17 uIU/mL (0.32-4.0)
[2022-03-20 15:04] LABS: Ferritin 79 ng/mL (20-250)
== END 2022-03-20 08:36 | disposition home or self-care (01) ==
LOC: HO.LAB 08:35
PROVIDERS: Internal Medicine; PCP Internal Medicine; Visit Provider Nurse Practitioner Family
DX: E03.9 Hypothyroidism, unspecified (principal); E04.2 Nontoxic multinodular goiter; E78.5 Hyperlipidemia, unspecified; D64.9 Anemia, unspecified
CPT/HCPCS: 36415; 80061; 82728; 84439; 84443; 85014; 85018

== ENCOUNTER → 2022-05-11 10:15 | Outpatient (BNVA) | payer MEDICARE, SELFPAY | PROVIDERS: PCP Internal Medicine; Visit Provider Internal Medicine | DX: E03.9 Hypothyroidism, unspecified (principal); E04.2 Nontoxic multinodular goiter; R13.10 Dysphagia, unspecified; Z79.899 Other long term (current) drug therapy | CPT/HCPCS: 99212 ==

== ENCOUNTER → 2022-05-24 19:30 | Outpatient (REF) | payer MEDICARE, SELFPAY | LOC: HO.SL 19:30 | PROVIDERS: Visit Provider Nurse Practitioner Family | DX: G47.33 Obstructive sleep apnea (adult) (pediatric) (principal) | CPT/HCPCS: 95811 ==

== ENCOUNTER → 2022-06-09 10:44 | Outpatient (BNVA) | payer MEDICARE, SELFPAY | PROVIDERS: PCP Internal Medicine; Visit Provider Nurse Practitioner Family | DX: G47.33 Obstructive sleep apnea (adult) (pediatric) (principal); R13.10 Dysphagia, unspecified; R25.1 Tremor, unspecified; E04.2 Nontoxic multinodular goiter; E06.3 Autoimmune thyroiditis; Z79.82 Long term (current) use of aspirin; Z79.899 Other long term (current) drug therapy | CPT/HCPCS: 99212 ==

== ENCOUNTER → 2022-07-06 09:21 | Outpatient (REF) | payer MEDICARE, SELFPAY ==
--- NOTE | 2022-07-06 09:23 | CA_ITS ---
Transthoracic Echocardiogram Patient (Last, First, Middle): Melquiades Self, Gender: Male Date of : 1950 Age: 72 Procedure Date: 07/06/2022 Procedure Type: Transthoracic Echocardiogram Location: OP Height: 175.26 cm Weight: 82.56 kg BSA: 1.98 m2 Heart Rate: 70 bpm BP: 120 / 70 mmHg Selector Packer: SB Referring MD: Kd Nunez MD Symptoms: I71.2 - Thoracic aortic aneurysm, without rupture Study Quality: Adequate w contrast ECG Rhythm: Sinus Conclusions: - The left ventricular systolic function is normal. The calculated ejection fraction is 64% by biplane method. - No obvious valvular pathology seen on this study. - There is mild dilatation of the ascending aorta measuring 4.40 cm. Findings Procedure Information Contrast agent, definity, is being given per protocol without apparent complications. Left Ventricle Normal left ventricular cavity size. The left ventricular systolic function is normal. The calculated ejection fraction is 64% by biplane method. There is no evidence of regional wall motion abnormalities. Diastolic function is normal for age. There is mild septal asymmetric hypertrophy. Right Ventricle Normal right ventricular cavity size and systolic function. Atria Both atria are normal in size. Aortic Valve There is a normal trileaflet aortic valve. There is mild calcification of the aortic valve. There is no aortic valve stenosis. There is trace (trivial) aortic valve regurgitation. Mitral Valve The mitral valve appears normal. There is no mitral valve regurgitation. There is no mitral valve stenosis. Pulmonic Valve There is trace pulmonic valve regurgitation. Tricuspid Valve There is mild tricuspid valve regurgitation. There is no evidence of pulmonary hypertension. Great Vessels There is mild dilatation of the ascending aorta measuring 4.40 cm. Venous The inferior vena cava was not well visualized. The inferior vena cava is normal in size. Pericardium/Pleural There is no evidence of pericardial effusion. Prior Study Comparison Changes noted compared to prior study dated: 12/25/2020. Increase in ascending aortic size (per images, 4.1cm in prior study). Recommendations, Care & Conclusions No obvious valvular pathology seen on this study. Measurements 2D Linear Measurements IVSd: 1.17 0.6-0.9/0.6-1.0 cm LVIDd: 4.19 3.9-5.3/4.2-5.9 cm LVIDd Index: 2.12 2.4-3.2/2.2-3.1 cm/m2 LVIDs: 2.30 2.0-3.6 cm LVPWd: 0.65 0.7-1.1 cm LA Diam: 3.60 2.7-3.8/3.0-4.0 cm LAIDs Index: 1.82 1.5-2.3 cm/m2 LV Mass: 149.38 67-162/88-224 g LV Mass Index: 75.44 43-95/49-115 g/m2 LVOT Diam: 2.10 3.0+(-)1.3 cm 2D Systolic Function EF 4C: 56.20 >55% EF 2C: 68.50 >55% EF BiP: 63.80 >55% Mitral Valve MV Pk E: 0.70 MV PK A: 0.76 MV Decel Time: 246.00 E/A: 0.90 E'Lateral: 8.16 E'Medial: 5.66 E/E' Med: 12.30 E/E' Lat: 8.60 PHT: 72.00 MVA PHT: 3.06 Decel [place]: 2.83 Aortic Valve AoV Pk Royer: 1.49 AoV Mn Royer: 1.00 AoV VTI: 0.31 AoV Pk Grad: 9.00 Aov Mn Grad: 5.00 SMILEY Cont.VTI: 2.57 LVOT LVOT Pk Royer: 0.95 LVOT Mn Royer: 0.74 LVOT VTI: 0.23 LVOT Pk Grad: 4.00 LVOT Mn Grad: 2.00 LVOT Diam: 2.10 LVOT Area: 3.46 Diastolic Function MV Pk E: 0.70 MV Pk A: 0.76 E/A: 0.90 E'Medial: 5.66 E/E' Med: 12.30 E' Laterial: 8.16 E/E' Lat: 8.60 Right Ventricle TAPSE (mm): 18.40 TVS' Royer: 10.40 Tricuspid Valve TR Pk Royer: 2.49 TR Pk Grad: 25.00 RA Press: 3.00 RVSP: 28.00 Great Vessels Aorta Sinus of Valsalva: 3.70 2.0-3.5 cm Ao Asc: 4.30 2.1-3.4 cm Ao Arch: 3.60 Ao Desc: 2.80 Pulmonary Veins Pulm Vein S/D 1.50 Pulmonary Valve PV Pk Royer: 1.05 Peak PV Grad: 4.00 Updated in Other Vendor System with Status of Final Kd Nunez MD electronically signed on 07/06/2022 12:24:07 PM with status of Final
== END ==
LOC: HO.CARD 09:21
PROVIDERS: PCP Internal Medicine; Visit Provider Internal Medicine
DX: I71.20 Thoracic aortic aneurysm, without rupture, unspecified (principal)
CPT/HCPCS: 93306; Q9957

== ENCOUNTER 2022-07-16 10:43 | Outpatient (REF) | payer MEDICARE, SELFPAY ==
[2022-07-16 11:29] LABS: MANUAL DIFF FLAG NO
[2022-07-16 12:06] LABS: Basophils Absolute Auto 0.1 X10*3/uL (0.0-0.2); Basophils Percent Auto 0.8 % (0-2); Eosinophils Absolute Auto 0.3 X10*3/uL (0.0-0.4); Hematocrit 40.1 % (42.0-52.0); Hemoglobin 12.7 g/dl (14.0-18.0); Imm Gran Abs Auto 0.03 X10*3/uL (0.00-0.03); Imm Gran Pct Auto 0.3 % (0.0-0.4); Lymphocytes Absolute Auto 2.9 X10*3/uL (1.2-4.9); Lymphocytes Percent Auto 31.9 % (20-40); Mean Corpuscular HGB Conc 31.7 g/dl (31.0-36.0); Mean Corpuscular Hemoglobin 27.8 pg (27.0-33.0); Mean Corpuscular Volume 87.7 fL (80.0-98.0); Mean Platelet Volume 11.6 fL (9.4-12.4); Monocytes Absolute Auto 0.7 X10*3/uL (0.1-1.2); Monocytes Percent Auto 8.1 % (2-11); Neutrophils Absolute Auto 5.1 x10*3/uL (2.0-8.3); Neutrophils Percent Auto 55.9 % (45-73); Platelet Count 243 X10*3/uL (160-400); Red Blood Count 4.57 X10*6/uL (4.60-5.80); Red Cell Distribution Width 12.2 % (11.0-16.0); White Blood Count 9.2 X10*3/uL (4.8-10.8)
== END 2022-07-16 10:44 | disposition home or self-care (01) ==
LOC: HO.LAB 10:43
PROVIDERS: PCP Internal Medicine; Referring Provider Internal Medicine; Visit Provider Internal Medicine
DX: I25.10 Atherosclerotic heart disease of native coronary artery without angina pectoris (principal); I77.810 Thoracic aortic ectasia; I10 Essential (primary) hypertension; K21.9 Gastro-esophageal reflux disease without esophagitis; Z79.82 Long term (current) use of aspirin; Z79.899 Other long term (current) drug therapy
CPT/HCPCS: 36415; 85025; 99212

== ENCOUNTER 2022-07-17 | Outpatient (REF) | payer MEDICARE, SELFPAY ==
[2022-07-20 16:12] LABS: OBS Int Ctl Valid YES; OBS Lot 50612 3L; OBS1 NEGATIVE (NEGATIVE); OBS2 NEGATIVE (NEGATIVE); OBS3 NEGATIVE (NEGATIVE)
== END 2022-07-17 00:01 | disposition home or self-care (01) ==
LOC: HO.LNP
PROVIDERS: Visit Provider Internal Medicine
DX: K92.1 Melena (principal)
CPT/HCPCS: 82270

== ENCOUNTER 2022-07-20 12:45 | Outpatient (REF) | payer MEDICARE, SELFPAY ==
--- NOTE | ~2022-07-20 | US_ITS ---
EXAMINATION: US EXTRACRANIAL CAROTID DUPLEX, BILATERAL CLINICAL INFORMATION: Carotid stenosis COMPARISON: Carotid ultrasound 11/09/2011. TECHNIQUE: Real-time ultrasound and Doppler techniques (integrating B-mode 2-D vascular images, Doppler spectral analysis and color-flow Doppler imaging) were utilized to interrogate the extracranial carotid arteries, the vertebral arteries and proximal subclavian arteries bilaterally. The degree of stenosis is determined by criteria similar to NASCET. FINDINGS: Right Side: 1. There is no atherosclerotic plaque seen in the bifurcation/proximal ICA region. 2. The common carotid artery PSV proximally is 58 cm/s and distally 58 cm/s. 3. The proximal internal carotid artery velocities are 63 cm/s systolic and 17 cm/s diastolic. 4. The proximal external carotid artery PSV is 105 cm/s. 5. The vertebral artery shows antegrade flow. 6. The subclavian artery waveforms are normal. Left Side: 1. There is no atherosclerotic plaque seen in the bifurcation/proximal ICA region. 2. The common carotid artery PSV proximally is 82 cm/s and distally 49 cm/s. 3. The proximal internal carotid artery velocities are 71 cm/s systolic and 22 cm/s diastolic. 4. The proximal external carotid artery PSV is 52 cm/s. 5. The vertebral artery shows antegrade flow. 6. The subclavian artery waveforms are normal. US/US carotid duplex BI IMPRESSION: 1. RIGHT: Normal right internal carotid artery without atherosclerotic plaque or hemodynamically significant stenosis. 2. LEFT: Normal left internal carotid artery without atherosclerotic plaque or hemodynamically significant stenosis.
== END 2022-07-20 12:46 | disposition home or self-care (01) ==
LOC: HO.US 12:45
PROVIDERS: PCP Internal Medicine; Visit Provider Internal Medicine
DX: I65.23 Occlusion and stenosis of bilateral carotid arteries (principal)
CPT/HCPCS: 93880

== ENCOUNTER 2022-08-13 14:24 | Outpatient (REF) | payer MEDICARE, SELFPAY ==
[2022-08-13 15:48] LABS: Appearance Urine Clear; Color Urine Yellow; Glucose Urine UA Negative (Negative); Leukocyte Esterase Urine Negative (Negative); Nitrite Urine Negative (Negative); Urine Blood Negative (Negative); Urine Ketones Negative (Negative); Urine Protein Negative (Neg-Trace)
[2022-08-13 15:52] LABS: INTERNATIONAL NORM RATIO 1.1 (0.9-1.1); Prothrombin Time 12.5 SEC (10.0-13.1)
[2022-08-13 16:09] LABS: Anion Gap 14 (12-20); Blood Urea Nitrogen 13 mg/dL (9-16); Calcium 8.7 mg/dL (8.4-10.2); Carbon Dioxide 24 mmol/L (22-29); Chloride 102 mmol/L (96-108); Estimated Glomerular Filt Rate > 60; Glucose Random 93 mg/dL (60-115); Potassium 4.6 mmol/L (3.3-5.1); Sodium 135 mmol/L (135-145)
== END 2022-08-13 14:25 | disposition home or self-care (01) ==
LOC: HO.LAB 14:24
PROVIDERS: Nurse Practitioner Family; Absent Provider Internal Medicine; PCP Internal Medicine; Visit Provider Internal Medicine
DX: I25.10 Atherosclerotic heart disease of native coronary artery without angina pectoris (principal); J98.4 Other disorders of lung; R05.9 Cough, unspecified; R91.8 Other nonspecific abnormal finding of lung field
CPT/HCPCS: 36415; 80048; 81003; 85610; 99212

== ENCOUNTER 2022-08-18 10:43 | Outpatient (REF) | payer MEDICARE, SELFPAY ==
--- NOTE | 2022-08-18 11:52 | PFT_ITS ---
FLOWS: 1. FEV1 70% of predicted at 2.05 L. 2. FVC 59% of predicted at 2.40 L. 3. FEV1 to FVC ratio of 0.86. 4. No bronchodilator response. LUNG VOLUMES: 1. Total lung capacity 68% of predicted at 4.51 L. 2. Residual volume 72% of predicted at 1.74 L. 3. Slow vital capacity vital capacity 65% of predicted at 2.77 L. 4. Expiratory reserve volume 30% of predicted at 0.34 L. 5. Diffusion capacity is mildly decreased. Diffusion capacity corrected to normal after adjustment for alveolar ventilation. IMPRESSION: Moderate restrictive ventilatory defect with no bronchodilator response. Frederic Lim MD AP/MODL / [id number]
== END 2022-08-18 10:44 | disposition home or self-care (01) ==
LOC: HO.RESP 10:43
PROVIDERS: PCP Internal Medicine; Visit Provider Internal Medicine
DX: J98.4 Other disorders of lung (principal); R05.9 Cough, unspecified
CPT/HCPCS: 94010; 94727; 94729

== ENCOUNTER → 2022-09-07 08:17 | Outpatient (BNVA) | payer MEDICARE, SELFPAY | PROVIDERS: PCP Internal Medicine; Visit Provider Nurse Practitioner Family | DX: G47.33 Obstructive sleep apnea (adult) (pediatric) (principal); G47.19 Other hypersomnia; R25.1 Tremor, unspecified | CPT/HCPCS: 99212 ==

== ENCOUNTER 2022-09-16 09:24 | Outpatient (REF) | payer MEDICARE, SELFPAY ==
--- NOTE | ~2022-09-16 | CT_ITS ---
EXAMINATION: CT CHEST WITHOUT CONTRAST CLINICAL INFORMATION: Follow up pulmonary nodules. COMPARISON: CT chest 06/24/2020 and 08/25/2019. TECHNIQUE: Multidetector volumetric CT imaging of the chest was done. Axial MIP volume rendering provided. Sagittal and coronal reformatted images were obtained. This CT examination was performed using dose optimization techniques as appropriate, variously including the following: *Automated exposure control *Adjustment of mA and/or kV according to patient size (this includes techniques or standardized protocols for targeted exams where dose is matched to indication/reason for exam; i.e. extremities or head) *Use of iterative reconstruction technique DLP: 122 mGy-cm FINDINGS: LUNGS: Again seen are multiple pulmonary nodules which are without significant change or slightly improved as compared with the prior study including, as examples: - A 6 mm pleural-based density, unchanged in the posterolateral costophrenic sulcus (5:324 compare prior 5:379). - A 4 mm left lower lobe posteromedial pleural-based nodule now measures 4 mm previously measuring 6 mm (5:206 compare prior 5:316). - A 9 mm right lower lobe pleural-based density, previously called a nodule, is unchanged and probably represents some focal pleural thickening (5:285 compare prior 5:319). Images of all abnormalities have been saved as shaikh images. MEDIASTINUM: Patient appears to be status post right hemithyroidectomy. Heart size is normal. The ascending aorta remains dilated at 4.5 cm in the axial plane, similar to prior (3:24). CORONARY ARTERY CALCIFICATION: Extensive. PLEURA: There is no pleural effusion. No pleural mass or thickening. AXILLA: There are persistent multiple small axillary lymph nodes, unchanged from prior. UPPER ABDOMEN: Unremarkable. OSSEOUS STRUCTURES: Mild degenerative changes are present in the spine. No bony destructive lesions. CT/CT chest wo IV con IMPRESSION: 1. Pulmonary nodules are stable or slightly smaller. No new lung nodules are seen. 2. Stable aneurysmal dilatation of ascending aorta at 4.5 cm. 3. Small axillary lymph nodes, unchanged. 2017 Fleischner Society Recommendations for Lung Nodule(s): Follow up based on size (average of long- and short-axis diameters). Use most suspicious nodule for followup. Single Solid lung nodule 6-8 mm: In a low-risk patient, recommend a non-contrast Chest CT at 6-12 months, then consider an additional non-contrast Chest CT at 18-24 months. In a high-risk patient, recommend a non-contrast Chest CT at 6-12 months, then another non-contrast Chest CT at 18-24 months. These guidelines do not apply to patients younger than 35 years, immunocompromised patients, and patients with cancer. F/u in patients with significant comorbidities as clinically warranted. For lung cancer screening, adhere to Lung-RADS guidelines. Reference: Radiology. 2017 Jovi; 284(1):228-243
== END 2022-09-16 09:25 | disposition home or self-care (01) ==
LOC: HO.CT 09:24
PROVIDERS: PCP Internal Medicine; Visit Provider Internal Medicine
DX: R91.8 Other nonspecific abnormal finding of lung field (principal); R05.3 Chronic cough; R91.1 Solitary pulmonary nodule
CPT/HCPCS: 71250

== ENCOUNTER → 2022-09-29 08:46 | Outpatient (BNVA) | payer MEDICARE, SELFPAY | PROVIDERS: PCP Internal Medicine; Visit Provider Internal Medicine | DX: J98.4 Other disorders of lung (principal); R05.9 Cough, unspecified; R91.8 Other nonspecific abnormal finding of lung field; G47.33 Obstructive sleep apnea (adult) (pediatric); R06.09 Other forms of dyspnea | CPT/HCPCS: 99212 ==

== ENCOUNTER → 2023-01-18 08:48 | Outpatient (REF) | payer MEDICARE, SELFPAY ==
--- NOTE | 2023-01-18 08:50 | CA_ITS ---
Transthoracic Echocardiogram Patient (Last, First, Middle): Melquiades Self, Gender: Male Date of : 1950 Age: 72 Procedure Date: 01/18/2023 Procedure Type: Transthoracic Echocardiogram Location: OP Height: 172.72 cm Weight: 78.02 kg BSA: 1.92 m2 Heart Rate: 83 bpm BP: 120 / 72 mmHg Hockey Instructor: SB Referring MD: Kd Nunez MD Symptoms: I71.2 - Thoracic aortic aneurysm, without rupture Study Quality: Adequate w contrast ECG Rhythm: Sinus Conclusions: - The left ventricular systolic function is normal. The calculated ejection fraction is 67% by biplane method. - There is moderate septal and moderate basal asymmetric hypertrophy. - No obvious valvular pathology seen on this study. - There is mild dilatation of the ascending aorta measuring 4.30 cm. Findings Procedure Information Contrast agent, definity, is being given per protocol without apparent complications. Left Ventricle Normal left ventricular cavity size. The left ventricular systolic function is normal. The calculated ejection fraction is 67% by biplane method. There is no evidence of regional wall motion abnormalities. Diastolic function is normal for age. There is moderate septal and moderate basal asymmetric hypertrophy. Right Ventricle Normal right ventricular cavity size and systolic function. Atria The left atrium is normal in size. 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 There is no evidence of interatrial shunt by color Doppler. Aortic Valve There is a normal trileaflet aortic valve. There is mild calcification of the aortic valve. There is no aortic valve stenosis. There is trace (trivial) aortic valve regurgitation. Mitral Valve The mitral valve appears normal. There is mild mitral valve regurgitation. There is no mitral valve stenosis. Pulmonic Valve The pulmonic valve is likely normal. Tricuspid Valve There is mild tricuspid valve regurgitation. Mild pulmonary hypertension is present. Great Vessels There is mild dilatation of the ascending aorta measuring 4.30 cm. Venous The inferior vena cava is normal in size and collapses greater than 50% with inspiration. Pericardium/Pleural There is no evidence of pericardial effusion. Prior Study Comparison No significant change compared to prior study dated: 07/06/2022. Recommendations, Care & Conclusions No obvious valvular pathology seen on this study. Measurements 2D Linear Measurements IVSd: 1.30 0.6-0.9/0.6-1.0 cm LVIDd: 3.40 3.9-5.3/4.2-5.9 cm LVIDd Index: 1.77 2.4-3.2/2.2-3.1 cm/m2 LVIDs: 2.10 2.0-3.6 cm LVPWd: 0.70 0.7-1.1 cm LA Diam: 3.50 2.7-3.8/3.0-4.0 cm LAIDs Index: 1.82 1.5-2.3 cm/m2 LV Mass: 122.89 67-162/88-224 g LV Mass Index: 64.00 43-95/49-115 g/m2 LVOT Diam: 2.10 3.0+(-)1.3 cm 2D Systolic Function EF 4C: 60.70 >55% EF 2C: 71.60 >55% EF BiP: 67.00 >55% Mitral Valve MV Pk E: 0.75 MV PK A: 0.84 MV Decel Time: 182.00 E/A: 0.90 E'Lateral: 8.92 E'Medial: 6.09 E/E' Med: 12.20 E/E' Lat: 8.40 PHT: 53.00 MVA PHT: 4.15 Decel Waller: 4.10 Aortic Valve AoV Pk Royer: 1.50 AoV Pk Grad: 9.00 SMILEY: 2.65 AI Pk Royer: 4.08 AI Waller: 3.70 LVOT LVOT Pk Royer: 1.15 LVOT Mn Royer: 0.88 LVOT VTI: 0.27 LVOT Pk Grad: 5.00 LVOT Mn Grad: 3.00 LVOT Diam: 2.10 LVOT Area: 3.46 Diastolic Function MV Pk E: 0.75 MV Pk A: 0.84 E/A: 0.90 E'Medial: 6.09 E/E' Med: 12.20 E' Laterial: 8.92 E/E' Lat: 8.40 Right Ventricle TVS' Royer: 8.49 Tricuspid Valve TR Pk Royer: 3.03 TR Pk Grad: 37.00 RA Press: 3.00 RVSP: 40.00 Great Vessels Aorta Sinus of Valsalva: 3.70 2.0-3.5 cm Ao Asc: 4.30 2.1-3.4 cm Ao Arch: 3.50 Ao Desc: 2.20 Pulmonary Veins Pulm Vein S/D 1.60 Pulmonary Valve PV Pk Royer: 1.05 Peak PV Grad: 4.00 Updated in Other Vendor System with Status of Final Kd Nuenz MD electronically signed on 01/19/2023 11:36:37 AM with status of Final
== END ==
LOC: HO.CARD 08:48
PROVIDERS: PCP Internal Medicine; Visit Provider Internal Medicine
DX: I71.20 Thoracic aortic aneurysm, without rupture, unspecified (principal)
CPT/HCPCS: 93306; Q9957

== ENCOUNTER → 2023-01-18 08:50 | Outpatient (BNV) | payer MEDICARE, SELFPAY | PROVIDERS: PCP Internal Medicine; Visit Provider Internal Medicine | DX: I34.0 Nonrheumatic mitral (valve) insufficiency (principal); I36.1 Nonrheumatic tricuspid (valve) insufficiency | CPT/HCPCS: 93306 ==

== ENCOUNTER 2023-02-01 09:44 | Outpatient (AMB) | payer MEDICARE, SELFPAY ==
--- NOTE | 2023-02-01 09:50 | A.OFFVIS_ITS ---
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 BAKED Allergy (Severe, Uncoded 02/01/23 09:55) BRE BEANS ( G6PD DEFICINCEY Medication List - Last Reconciled 02/01/23 by Kd Nunez MD acetaminophen 1,000 mg PO Q6H PRN alirocumab (Praluent Pen) 75 mg subcut Q14D 90 days aspirin 81 mg PO DAILY 90 days [Cane As directed] cholecalciferol (vitamin D3) 50 mcg PO ONCE levothyroxine 75 mcg PO DAILY metoprolol tartrate 12.5 mg (1/2 x 25 mg) PO BID omeprazole 20 mg PO BID 90 days HPI HPI Comments History of Present Illness Details Melquiades returns for follow-up regarding coronary disease. He underwent coronary CTA that showed significant LAD disease. Subsequently underwent cardiac catheterization and LAD stenting. Overall, he is feeling good. No specific cardiac complaints like angina or shortness of breath. Occasionally, feels dizzy but seems somewhat nonspecific. Otherwise seems to be generally getting along okay. [facility] Medical History (Updated 09/29/22 @ 09:45 by Mily Rehman MD) Dyspnea on exertion Dysphagia Vitamin D deficiency Hypothyroidism Mild ascending aorta dilatation Pulmonary nodules Restrictive lung disease Chronic cough Hypertension Subclinical hypothyroidism Jadiel's disease Non-toxic multinodular goiter Surgical History Hx of heart artery stent History of thyroid surgery Hx of cholecystectomy Family History Father Hypertension Heart disease Diabetes Mother Hypertension Brother Myocardial infarction Social History Household Members: Spouse and Children Housing: House Alcohol intake: never Patient Tobacco Use Status: Never used Tobacco e-Cigarette/Vaping Use: Never Used Current occupational status: retired Cognitive needs: No Hearing needs: No Vision needs: Yes Review of Systems Const Denies weakness ENT Denies dizziness Card Denies chest pain, Denies chest pain with activity, Denies syncope, Denies rapid heart rate, Denies pedal edema, Denies edema, Denies leg edema, Denies lightheadedness, Denies palpitations, Denies dyspnea, Denies dyspnea on exertion and Denies orthopnea Resp Denies cough, Denies dyspnea and Denies dyspnea on exertion GI Denies hematochezia and Denies change in stool character Musc Denies abnormal gait, Denies muscle cramps, Denies muscle weakness, Denies numbness, Denies radiating pain into limb and Denies tingling Neuro Denies abnormal gait, Denies dizziness, Denies syncope, Denies numbness, Denies tingling and Denies weakness Endo Denies palpitations Physical Exam Vital Signs: Last Vital Signs Pulse 64 02/01/23 09:51 BP 108/66 02/01/23 09:51 BMI result Body Mass Index 26.8 Const General: comfortable and no acute distress Orientation/consciousness: patient oriented x3 HEENT Other: Unremarkable Head: Yes normal to inspection Neck Neck: Yes normal visual inspection Chest Chest palpation & inspection: normal inspection of the chest Resp Auscultation: clear to auscultation bilaterally Cardio Palpation: normal PMI Heart sounds: S1 normal heart sound present, S2 normal heart sound present, no gallops, no murmurs and no rubs GI Palpation (GI): Soft to palpation Back/Spine/Pelvis Other: unremarkable Skin General skin exam: no rashes or lesions noted Neuro General: patient oriented x3 Extrem General: Yes normal to inspection Psych Mental Status: mental status grossly normal Office Procedures EKG Details: EKG today shows sinus rhythm at 64/Min; no significant ST-T changes and otherwise unremarkable. [place]. [id number], Complete Assessment & Plan Assessment & Plan (1) Atherosclerotic cardiovascular disease: Code(s): I25.10 - Atherosclerotic heart disease of [place] coronary artery without angina pectoris Plan: Cardiac catheterization data reviewed. He had 85% stenosis in the mid LAD. Status post drug-eluting stenting. Mild irregularities in the circumflex but otherwise unremarkable. Continue aspirin. Continue Praluent. LDL seems well controlled. (2) Mild ascending aorta dilatation: Code(s): I77.810 - Thoracic aortic ectasia Plan: In a prior chest CT, ascending aortic measurement was 4.5 cm x 4.3 cm. In the coronary CTA, it was 4.3 cm. In the most recent echocardiogram, ascending aortic size 4.3 cm. Overall, unchanged. No specific management at this time. We can repeat in 1 year. (3) Essential hypertension: Code(s): I10 - Essential (primary) hypertension Plan: Generally stable. He does get some dizziness but not clear what the etiology is. If continues, probably cut back or stop the metoprolol. Plan Discussed with who came for appointment. Coding Level of Care Code Est Pt Level 4 (92892) Diagnoses Atherosclerotic cardiovascular disease I25.10 Mild ascending aorta dilatation I77.810 Essential hypertension I10 CPT Codes EKG - CPT: 12021-[id number], Complete ([id number])
[2023-02-01 09:51] VITALS: BP 108/66; PULSE 64; BMI 26.8
== END 2023-02-01 10:19 | disposition home or self-care (01) ==
PROVIDERS: PCP Internal Medicine; Visit Provider Internal Medicine
DX: I25.10 Atherosclerotic heart disease of native coronary artery without angina pectoris (principal); I77.810 Thoracic aortic ectasia; I10 Essential (primary) hypertension
CPT/HCPCS: 93010; 99214

== ENCOUNTER → 2023-02-01 09:44 | Outpatient (BNVA) | payer MEDICARE, SELFPAY | PROVIDERS: PCP Internal Medicine; Visit Provider Internal Medicine | DX: I25.10 Atherosclerotic heart disease of native coronary artery without angina pectoris (principal); I10 Essential (primary) hypertension; I77.810 Thoracic aortic ectasia; Z95.5 Presence of coronary angioplasty implant and graft; Z98.890 Other specified postprocedural states | CPT/HCPCS: 93005; 99212 ==

== ENCOUNTER 2023-02-03 13:16 | Outpatient (AMB) | payer MEDICARE, SELFPAY ==
[2023-02-03 13:21] VITALS: BP 118/60; PULSE 69; O2SAT 100; BMI 26.6
--- NOTE | 2023-02-03 13:21 | MHC.PC.OV ---
Vital Signs 02/03/23 13:21 Height 5 ft 9 in Weight 180 lb 2 oz BMI 26.6 BP 118/60 Blood Pressure Location Rt brachial Position Sitting Pulse 69 Pulse Source Pulse Oximeter Pulse Oximetry (%) 100 Oxygen Delivery Method Room Air Intake Visit Reasons: Med review Allergies aspirin [ASPIRIN] Allergy (Severe, Verified 02/03/23 13:23) G6PD DEFICIENCY [id number]-[id number] Reductase Inhibitor Allergy (Mild, Verified 02/03/23 13:23) Muscle Pain blue dye [BLUE DYE] Allergy (Unknown, Verified 02/03/23 13:23) G6PD Sulfa (Sulfonamide Antibiotics) [SULFA(SULFONAMIDE ANTIBIOTICS)] Allergy (Unknown, Verified 02/03/23 13:23) UNKNOWN BEANS. BAKED Allergy (Severe, Uncoded 02/03/23 13:23) BRE BEANS ( G6PD DEFICINCEY Medication List - Last Reconciled 02/03/23 by Irma Reyes MD acetaminophen 1,000 mg PO Q6H PRN alirocumab (Praluent Pen) 75 mg subcut Q14D 90 days aspirin 81 mg PO DAILY 90 days [Cane As directed] cholecalciferol (vitamin D3) 50 mcg PO ONCE levothyroxine 75 mcg PO DAILY metoprolol tartrate 12.5 mg (1/2 x 25 mg) PO BID omeprazole 20 mg PO BID 90 days Tobacco use date assessed: 02/03/23 Fall risk assessment: No Falls in past year Last assessed Fall Risk: 02/03/23 Dental Screening Dental Screen Date: 02/03/23 Did you have a dental visit in the last 12 months?: No Did you have a dental problem in the last 6 months where you did not have access to dental care?: No Was dental information given to patient?: No HPI Med review HPI Details Patient is 72-year-old gentleman came in today for his follow-up appointment Last time patient was seen April of this year Patient was seeing Endocrinology for his thyroid but no longer seeing them He is taking levothyroxine 75 mcg and is due for labs Patient is also 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 Nunez for LAD stenting follow-up and mild thoracic aortic aneurysm 4.3 cm Last visit was February 01, note reviewed, he is to continue metoprolol 12.5 mg b.i.d. Patient is doing well has no shortness of breath or chest pain He does have COPD shown on pulmonary function test as restrictive lung disease, and also have sleep apnea using CPAP machine He is mildly anemic and is taking iron supplement. GERD is stable with omeprazole. Vitamin-D deficiency: Continue supplement He will return in April for physical exam Colonoscopy was in 2018 [facility] Medical History Dyspnea on exertion Dysphagia Vitamin D deficiency Hypothyroidism Mild ascending aorta dilatation Pulmonary nodules Restrictive lung disease Chronic cough Hypertension Subclinical hypothyroidism Jadiel's disease Non-toxic multinodular goiter Surgical History Hx of heart artery stent History of thyroid surgery Hx of cholecystectomy Family History Father Hypertension Heart disease Diabetes Mother Hypertension Brother Myocardial infarction Social History Household Members: Spouse and Children Housing: House Alcohol intake: never Patient Tobacco Use Status: Never used Tobacco e-Cigarette/Vaping Use: Never Used Current occupational status: retired Cognitive needs: No Hearing needs: No Vision needs: Yes Questionnaire PHQ-9 Over the last 2 weeks, how often have you been bothered by any of the following problems? 1. Little interest or pleasure in doing things: not at all 2. Feeling down, depressed, or hopeless: not at all 3. Trouble falling or staying asleep, or sleeping too much: not at all 4. Feeling tired or having little energy: not at all 5. Poor appetite or overeating: not at all 6. Feeling bad about yourself - or that you are a failure or have let yourself or your family down: not at all 7. Trouble concentrating on things, such as reading the newspaper or watching television: not at all 8. Moving or speaking so slowly that other people could have noticed. Or the opposite - being so fidgety or restless that you have been moving around a lot more than usual: not at all 9. Thoughts that you would be better off or of hurting yourself in some way: not at all Total score: 0 Depression Screening Interpretation: Negative Depression Screening Done: Yes 88029 - PHQ-9 Billing: Yes Source: Developed by Drs. Esteban Kwon, Rossy Hernandez, Samy Peters and colleagues, with an educational sahil from [employer]. Thrive Questionnaire Date Thrive assessed: 10/25/20 Review of Systems Const Denies chills and Denies fever(s) ENT Denies epistaxis and Denies nasal discharge Card Denies chest pain Resp Denies chest congestion, Denies cough and Denies hemoptysis GI Denies diarrhea and Denies nausea Skin/Breast Denies rash Neuro Reports no additional complaints Psych Reports no additional complaints Endo Reports no additional complaints Physical exam (Primary Care) Vital Signs: Last Vital Signs Pulse 69 02/03/23 13:21 BP 118/60 02/03/23 13:21 Pulse Ox 100 02/03/23 13:21 Oxygen Delivery Method Room Air 02/03/23 13:21 BMI result Body Mass Index 26.6 Tobacco/Smoking Status: Tobacco use Status Tobacco use date assessed 02/03/23 02/03/23 13:26 Patient Tobacco Use Status Never used Tobacco 02/03/23 13:26 e-Cigarette/Vaping Use Never Used 02/03/23 13:26 Depression Screening Interpretation: Negative Thrive Assessment: Date of Thrive Assessment Date Thrive assessed 10/25/20 02/03/23 13:26 Const General: cooperative, comfortable and no acute distress Orientation/consciousness: patient oriented x3 HENMT Head: Yes normocephalic Eyes General: appearance normal, both eyes and all related structures Neck Neck: Yes supple Resp Effort & Inspection: normal respiratory effort, no cough and no stridor Cardio Rhythm: regular rhythm Heart sounds: S1 normal heart sound present and S2 normal heart sound present Skin General skin exam: turgor normal Neuro General: patient oriented x3, tone normal and moves all extremities Extrem Right lower extremity: no edema Left lower extremity: no edema Assessment and Plan Assessment & Plan (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 (2) Mild ascending aorta dilatation: Code(s): I77.810 - Thoracic aortic ectasia (3) Hypertension, essential: Code(s): I10 - Essential (primary) hypertension (4) Chronic GERD: Code(s): K21.9 - Gastro-esophageal reflux disease without esophagitis (5) Vitamin D deficiency: Code(s): E55.9 - Vitamin D deficiency, unspecified (6) Aortic valve regurgitation due to aortic dilation: Code(s): I35.1 - Nonrheumatic aortic (valve) insufficiency; I77.819 - Aortic ectasia, unspecified site (7) BPH (benign prostatic hyperplasia): Code(s): N40.0 - Benign prostatic hyperplasia without lower urinary tract symptoms Qualifiers: Lower urinary tract symptom presence: symptoms absent Qualified Code(s): N40.0 - Benign prostatic hyperplasia without lower urinary tract symptoms (8) Dyspepsia: Code(s): R10.13 - Epigastric pain (9) Other specified hypothyroidism: Code(s): E03.8 - Other specified hypothyroidism Plan Patient is 72-year-old gentleman came in today for his follow-up appointment Last time patient was seen April of this year Patient was seeing Endocrinology for his thyroid but no longer seeing them He is taking levothyroxine 75 mcg and is due for labs Patient is also 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 Nunez for LAD stenting follow-up and mild thoracic aortic aneurysm 4.3 cm Last visit was February 01, note reviewed, he is to continue metoprolol 12.5 mg b.i.d. Patient is doing well has no shortness of breath or chest pain He does have COPD shown on pulmonary function test as restrictive lung disease, and also have sleep apnea using CPAP machine He is mildly anemic and is taking iron supplement. GERD is stable with omeprazole. Vitamin-D deficiency: Continue supplement BPH is stable patient is no longer taking medication He will return in April for physical exam Colonoscopy was in 2017 Orders: Orders Complete Blood Count Auto Diff Today E06.3 - Autoimmune thyroiditis, E55.9 - Vitamin D deficiency, unspecified, I10 - Essential (primary) hypertension, I35.1 - Nonrheumatic aortic (valve) insufficiency, I71.2 - Thoracic aortic aneurysm, without rupture, I77.810 - Thoracic aortic ectasia, I77.819 - Aortic ectasia, unspecified site, K21.9 - Gastro-esophageal reflux disease without esophagitis Hemoglobin A1c Today E06.3 - Autoimmune thyroiditis, E55.9 - Vitamin D deficiency, unspecified, I10 - Essential (primary) hypertension, I35.1 - Nonrheumatic aortic (valve) insufficiency, I71.2 - Thoracic aortic aneurysm, without rupture, I77.810 - Thoracic aortic ectasia, I77.819 - Aortic ectasia, unspecified site, K21.9 - Gastro-esophageal reflux disease without esophagitis Vitamin B12 Today E06.3 - Autoimmune thyroiditis, E55.9 - Vitamin D deficiency, unspecified, I10 - Essential (primary) hypertension, I35.1 - Nonrheumatic aortic (valve) insufficiency, I71.2 - Thoracic aortic aneurysm, without rupture, I77.810 - Thoracic aortic ectasia, I77.819 - Aortic ectasia, unspecified site, K21.9 - Gastro-esophageal reflux disease without esophagitis Comprehensive Met. Panel Today E06.3 - Autoimmune thyroiditis, E55.9 - Vitamin D deficiency, unspecified, I10 - Essential (primary) hypertension, I35.1 - Nonrheumatic aortic (valve) insufficiency, I71.2 - Thoracic aortic aneurysm, without rupture, I77.810 - Thoracic aortic ectasia, I77.819 - Aortic ectasia, unspecified site, K21.9 - Gastro-esophageal reflux disease without esophagitis TSH reflex Free T4 Today E06.3 - Autoimmune thyroiditis, E55.9 - Vitamin D deficiency, unspecified, I10 - Essential (primary) hypertension, I35.1 - Nonrheumatic aortic (valve) insufficiency, I71.2 - Thoracic aortic aneurysm, without rupture, I77.810 - Thoracic aortic ectasia, I77.819 - Aortic ectasia, unspecified site, K21.9 - Gastro-esophageal reflux disease without esophagitis Vitamin D 25-OH (D2 and D3) Today E06.3 - Autoimmune thyroiditis, E55.9 - Vitamin D deficiency, unspecified, I10 - Essential (primary) hypertension, I35.1 - Nonrheumatic aortic (valve) insufficiency, I71.2 - Thoracic aortic aneurysm, without rupture, I77.810 - Thoracic aortic ectasia, I77.819 - Aortic ectasia, unspecified site, K21.9 - Gastro-esophageal reflux disease without esophagitis LDL Cholesterol Direct Today E06.3 - Autoimmune thyroiditis, E55.9 - Vitamin D deficiency, unspecified, I10 - Essential (primary) hypertension, I35.1 - Nonrheumatic aortic (valve) insufficiency, I71.2 - Thoracic aortic aneurysm, without rupture, I77.810 - Thoracic aortic ectasia, I77.819 - Aortic ectasia, unspecified site, K21.9 - Gastro-esophageal reflux disease without esophagitis Coding Level of Care Code Est Pt Level 4 (02236) Diagnoses Jadiel's disease E06.3 Mild ascending aorta dilatation I77.810 Hypertension, essential I10 Chronic GERD K21.9 Vitamin D deficiency E55.9 Aortic valve regurgitation due to aortic dilation I35.1; I77.819 Benign prostatic hyperplasia without lower urinary tract symptoms N40.0 Lower urinary tract symptom presence: symptoms absent Dyspepsia R10.13 Other specified hypothyroidism E03.8
== END 2023-02-03 14:57 | disposition home or self-care (01) ==
PROVIDERS: PCP Internal Medicine; Visit Provider Internal Medicine
DX: I10 Essential (primary) hypertension (principal); I77.810 Thoracic aortic ectasia; I77.819 Aortic ectasia, unspecified site; E06.3 Autoimmune thyroiditis; K21.9 Gastro-esophageal reflux disease without esophagitis; E55.9 Vitamin D deficiency, unspecified; I35.1 Nonrheumatic aortic (valve) insufficiency; N40.0 Benign prostatic hyperplasia without lower urinary tract symptoms; R10.13 Epigastric pain; E03.8 Other specified hypothyroidism
CPT/HCPCS: 99214

== ENCOUNTER 2023-02-03 13:52 | Outpatient (REF) | payer MEDICARE, SELFPAY ==
[2023-02-03 15:53] LABS: MANUAL DIFF FLAG NO
[2023-02-03 16:11] LABS: Basophils Absolute Auto 0.1 X10*3/uL (0.0-0.2); Basophils Percent Auto 0.8 % (0-2); Eosinophils Absolute Auto 0.2 X10*3/uL (0.0-0.4); Eosinophils Percent Auto 1.9 % (0-4); Hematocrit 40.7 % (42.0-52.0); Hemoglobin 12.6 g/dl (14.0-18.0); Imm Gran Abs Auto 0.03 X10*3/uL (0.00-0.03); Imm Gran Pct Auto 0.3 % (0.0-0.4); Lymphocytes Absolute Auto 3.5 X10*3/uL (1.2-4.9); Lymphocytes Percent Auto 37.8 % (20-40); Mean Corpuscular Hemoglobin 27.4 pg (27.0-33.0); Mean Corpuscular Volume 88.5 fL (80.0-98.0); Mean Platelet Volume 12.6 fL (9.4-12.4); Monocytes Absolute Auto 0.6 X10*3/uL (0.1-1.2); Monocytes Percent Auto 6.9 % (2-11); Neutrophils Absolute Auto 4.8 x10*3/uL (2.0-8.3); Neutrophils Percent Auto 52.3 % (45-73); Platelet Count 247 X10*3/uL (160-400); Red Cell Distribution Width 12.6 % (11.0-16.0); White Blood Count 9.3 X10*3/uL (4.8-10.8)
[2023-02-03 16:23] LABS: Estimated Average Glucose 91 mg/dL; Hemoglobin A1c % 4.8 % (<6.0)
[2023-02-03 16:27] LABS: Alanine Aminotransferase 22 U/L (0-40); Alkaline Phosphatase 85 U/L (39-117); Anion Gap 13 (12-20); Aspartate Amino Transferase 22 U/L (5-37); Bilirubin Total 0.3 mg/dL (0.0-1.0); Blood Urea Nitrogen 15 mg/dL (9-16); Calcium 9.5 mg/dL (8.4-10.2); Carbon Dioxide 26 mmol/L (22-29); Chloride 105 mmol/L (96-108); Estimated Glomerular Filt Rate > 60; Glucose Random 93 mg/dL (60-115); Potassium 4.8 mmol/L (3.3-5.1); Sodium 139 mmol/L (135-145); Total Protein 7.4 g/dL (6.5-8.0)
[2023-02-03 16:41] LABS: TSH reflex Free T4 2.31 uIU/mL (0.32-4.0)
[2023-02-03 16:49] LABS: Vitamin B12 1424 pg/mL (200-900)
[2023-02-05 02:59] LABS: LDL Cholesterol Direct 100 mg/dL (<100)
== END 2023-02-03 13:53 | disposition home or self-care (01) ==
LOC: HO.HMGCLDS 13:52
PROVIDERS: PCP Internal Medicine; Visit Provider Internal Medicine
DX: E06.3 Autoimmune thyroiditis (principal); I10 Essential (primary) hypertension; I77.810 Thoracic aortic ectasia; K21.9 Gastro-esophageal reflux disease without esophagitis; E55.9 Vitamin D deficiency, unspecified; I35.1 Nonrheumatic aortic (valve) insufficiency; I77.819 Aortic ectasia, unspecified site; I71.20 Thoracic aortic aneurysm, without rupture, unspecified; E03.9 Hypothyroidism, unspecified
CPT/HCPCS: 36415; 80053; 82306; 82607; 83036; 83721; 84443; 85025

== ENCOUNTER 2023-04-21 09:20 | Outpatient (AMB) | payer MEDICARE, SELFPAY ==
[2023-04-21 09:30] VITALS: BP 126/62; PULSE 68; O2SAT 98; BMI 26.8
--- NOTE | 2023-04-21 09:30 | A.OFFPC_ITS ---
Vital Signs 04/21/23 09:30 Height 5 ft 9 in Weight 181 lb 4 oz BMI 26.8 BP 126/62 Blood Pressure Location Rt brachial Position Sitting Pulse 68 Pulse Source Pulse Oximeter Pulse Oximetry (%) 98 Oxygen Delivery Method Room Air Intake Visit Reasons: PE Allergies aspirin [ASPIRIN] Allergy (Severe, Verified 04/21/23 09:36) G6PD DEFICIENCY Brpfyrt-WYJ-CiR Reductase Inhibitor Allergy (Mild, Verified 04/21/23 09:36) Muscle Pain blue dye [BLUE DYE] Allergy (Unknown, Verified 04/21/23 09:36) G6PD Sulfa (Sulfonamide Antibiotics) [SULFA(SULFONAMIDE ANTIBIOTICS)] Allergy (Unknown, Verified 04/21/23 09:36) UNKNOWN BEANS. BAKED Allergy (Severe, Uncoded 02/03/23 13:23) BRE BEANS ( G6PD DEFICINCEY Medication List - Last Reconciled 04/21/23 by Irma Reyes MD acetaminophen 1,000 mg PO Q6H PRN alirocumab (Praluent Pen) 75 mg subcut Q14D 90 days aspirin 81 mg PO DAILY 90 days [Cane As directed] cholecalciferol (vitamin D3) 50 mcg PO ONCE levothyroxine 75 mcg PO DAILY metoprolol tartrate 12.5 mg (1/2 x 25 mg) PO BID omeprazole 20 mg PO BID 90 days Tobacco use date assessed: 04/21/23 Fall risk assessment: No Falls in past year Last assessed Fall Risk: 04/21/23 Dental Screening Dental Screen Date: 04/21/23 Did you have a dental visit in the last 12 months?: No Did you have a dental problem in the last 6 months where you did not have access to dental care?: No Was dental information given to patient?: No HPI PE HPI Details Patient is a 73-year-old gentleman with a history of LAD stenting, Jadiel thyroiditis status post thyroidectomy, G6 PD deficiency anemia, obstructive sleep apnea, chronic GERD, BPH, aortic valve regurgitation due to aortic dilatation, hypertension, mild ascending aortic dilatation Established with Dr. Nunez cardiology last visit was 3 months ago EKG done today showed no acute findings Last labs reviewed Patient offer no new complaints today PFSH Medical History Dyspnea on exertion Dysphagia Vitamin D deficiency Hypothyroidism Mild ascending aorta dilatation Pulmonary nodules Restrictive lung disease Chronic cough Hypertension Subclinical hypothyroidism Jadiel's disease Non-toxic multinodular goiter Surgical History Hx of heart artery stent History of thyroid surgery Hx of cholecystectomy Family History Father Hypertension Heart disease Diabetes Mother Hypertension Brother Myocardial infarction Social History Household Members: Spouse and Children Housing: House Alcohol intake: never Patient Tobacco Use Status: Never used Tobacco e-Cigarette/Vaping Use: Never Used Current occupational status: retired Cognitive needs: No Hearing needs: No Vision needs: Yes Questionnaire Thrive Questionnaire Date Thrive assessed: 10/25/20 AUDIT C Alcohol Use Questionnaire (AUDIT-C) 1. How often do you have a drink containing alcohol?: Never 3. How often do you have six or more drinks on one occasion?: Never Total Score: 0 Score Reviewed/Action Taken: Yes Review of Systems Const Denies chills, Denies fever(s) and Denies headache(s) Eyes Denies blurry vision ENT Denies headache(s), Denies nasal discharge, Denies nasal obstruction, Denies odynophagia and Denies sinus pain Card Denies chest pain at rest and Denies chest pain with activity Resp Denies cough and Denies hemoptysis GI Denies diarrhea, Denies odynophagia, Denies vomiting and Denies hematemesis Reports as per HPI Musc Denies abnormal gait Skin/Breast Reports as per HPI Neuro Denies Neuro-related abnormal movements, Denies Abnormal speech present, Denies abnormal gait, Denies headache(s) and Denies Sensory deficit (Neuro) Psych Denies mood swings and Denies paranoia Endo Reports as per HPI Aakash/Lymph Reports as per HPI Aller/Immun Reports as per HPI Physical exam (Primary Care) Vital Signs: Last Vital Signs Pulse 68 04/21/23 09:30 BP 126/62 04/21/23 09:30 Pulse Ox 98 04/21/23 09:30 Oxygen Delivery Method Room Air 04/21/23 09:30 BMI result Body Mass Index 26.8 Tobacco/Smoking Status: Tobacco use Status Tobacco use date assessed 04/21/23 04/21/23 09:36 Patient Tobacco Use Status Never used Tobacco 04/21/23 09:33 e-Cigarette/Vaping Use Never Used 04/21/23 09:33 Thrive Assessment: Date of Thrive Assessment Date Thrive assessed 10/25/20 04/21/23 09:33 Const General: cooperative, comfortable and no acute distress Orientation/consciousness: patient oriented x3 HENMT Head: Yes normocephalic and Yes atraumatic Eyes General: appearance normal, both eyes and all related structures Pupils: Equal, round and reactive pupils present EOM: EOMs intact bilaterally Neck Neck: Yes supple and No lymphadenopathy Thyroid: Thyroid normal Lymphatic: no lymphadenopathy noted Resp Effort & Inspection: normal respiratory effort and able to speak in complete sentences Auscultation: clear to auscultation bilaterally Cardio Heart sounds: S1 normal heart sound present and S2 normal heart sound present GI Palpation (GI): Soft to palpation and nontender Auscultation: normal bowel sounds General: Yes no CVA tenderness Back/Spine/Pelvis Back: no CVA tenderness Skin General skin exam: elasticity normal and turgor normal Neuro General: patient oriented x3 and gait normal Cranial nerves: Yes Equal, round and reactive pupils present Speech: No Abnormal speech present Sensory Exam: No Sensory deficit (Neuro) Coordination: tandem gait normal and Romberg test negative Extrem General: Yes normal exam except as noted and No edema Assessment and Plan Assessment & Plan (1) Encounter for general adult medical examination with abnormal findings: Code(s): Z00.01 - Encounter for general adult medical examination with abnormal findings (2) 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 (3) Mild ascending aorta dilatation: Code(s): I77.810 - Thoracic aortic ectasia (4) Hypertension, essential: Code(s): I10 - Essential (primary) hypertension (5) Chronic GERD: Code(s): K21.9 - Gastro-esophageal reflux disease without esophagitis (6) Vitamin D deficiency: Code(s): E55.9 - Vitamin D deficiency, unspecified (7) Aortic valve regurgitation due to aortic dilation: Code(s): I35.1 - Nonrheumatic aortic (valve) insufficiency; I77.819 - Aortic ectasia, unspecified site (8) BPH (benign prostatic hyperplasia): Code(s): N40.0 - Benign prostatic hyperplasia without lower urinary tract symptoms Qualifiers: Lower urinary tract symptom presence: symptoms absent Qualified Code(s): N40.0 - Benign prostatic hyperplasia without lower urinary tract symptoms (9) Dyspepsia: Code(s): R10.13 - Epigastric pain (10) Other specified hypothyroidism: Code(s): E03.8 - Other specified hypothyroidism (11) GERD (gastroesophageal reflux disease): Code(s): K21.9 - Gastro-esophageal reflux disease without esophagitis Qualifiers: Esophagitis presence: without esophagitis Qualified Code(s): K21.9 - Gastro-esophageal reflux disease without esophagitis (12) Severe obstructive sleep apnea: Comment: In-lab PSG w/ PAP titraion (05/2021): AHI 38/hr w/ O2 janet 85%. PATIENT USES CPAP REGULARLY EVERY NIGHT AND BENEFITS, HE IS BEING FOLLOWED BY [facility] [place].SLEEP MEDICINE SERVICE. Code(s): G47.33 - Obstructive sleep apnea (adult) (pediatric) (13) Low hemoglobin: Code(s): D64.9 - Anemia, unspecified (14) Impaired hearing: Code(s): H91.90 - Unspecified hearing loss, unspecified ear Qualifiers: Hearing loss type: unspecified Laterality: unspecified laterality Qualified Code(s): H91.90 - Unspecified hearing loss, unspecified ear (15) Status post partial thyroidectomy: Code(s): E89.0 - Postprocedural hypothyroidism (16) G6PD deficiency anemia: Code(s): D55.0 - Anemia due to govqoib-9-xpavbwkpy dehydrogenase [G6PD] deficiency (17) Atherosclerotic cardiovascular disease: Code(s): I25.10 - Atherosclerotic heart disease of [place] coronary artery without angina pectoris (18) Status post coronary artery stent placement: Code(s): Z95.5 - Presence of coronary angioplasty implant and graft Plan Patient is a 73-year-old gentleman with a history of LAD stenting, Jadiel thyroiditis status post thyroidectomy, G6 PD deficiency anemia, obstructive sleep apnea, chronic GERD, BPH, aortic valve regurgitation due to aortic dilatation, hypertension, mild ascending aortic dilatation Established with Dr. Nunez cardiology last visit was 3 months ago EKG done today showed no acute findings Last labs reviewed Patient offer no new complaints today Coding Level of Care Code Est Pt Prev Care >65y(42167) Diagnoses Encounter for general adult medical examination with abnormal findings Z00.01 Jadiel's disease E06.3 Mild ascending aorta dilatation I77.810 Hypertension, essential I10 Chronic GERD K21.9 Vitamin D deficiency E55.9 Aortic valve regurgitation due to aortic dilation I35.1; I77.819 Benign prostatic hyperplasia without lower urinary tract symptoms N40.0 Lower urinary tract symptom presence: symptoms absent Dyspepsia R10.13 Other specified hypothyroidism E03.8 Gastroesophageal reflux disease without esophagitis K21.9 Esophagitis presence: without esophagitis Severe obstructive sleep apnea G47.33 Low hemoglobin D64.9 Hearing loss, unspecified hearing loss type, unspecified laterality H91.90 Hearing loss type: unspecified Laterality: unspecified laterality Status post partial thyroidectomy E89.0 G6PD deficiency anemia D55.0 Atherosclerotic cardiovascular disease I25.10 Status post coronary artery stent placement Z95.5
== END 2023-04-21 11:19 | disposition home or self-care (01) ==
PROVIDERS: PCP Internal Medicine; Visit Provider Internal Medicine
DX: Z00.00 Encounter for general adult medical examination without abnormal findings (principal); I77.810 Thoracic aortic ectasia; I77.819 Aortic ectasia, unspecified site; D55.0 Anemia due to glucose-6-phosphate dehydrogenase [G6PD] deficiency; E06.3 Autoimmune thyroiditis; I10 Essential (primary) hypertension; K21.9 Gastro-esophageal reflux disease without esophagitis; E55.9 Vitamin D deficiency, unspecified; I35.1 Nonrheumatic aortic (valve) insufficiency; N40.0 Benign prostatic hyperplasia without lower urinary tract symptoms; R10.13 Epigastric pain; E03.8 Other specified hypothyroidism
CPT/HCPCS: 93000; 99397

== ENCOUNTER 2023-07-09 10:23 | Emergency (ER) | payer MEDICARE, SELFPAY ==
--- NOTE | ~2023-07-09 | CT_ITS ---
CT HEAD WITHOUT IV CONTRAST CT CERVICAL SPINE WITHOUT IV CONTRAST INDICATION: Headache and dizziness. COMPARISON: Head CT 10/30/2021. TECHNIQUE: Multidetector CT acquisitions of the head and cervical spine were obtained without IV contrast. Multiplanar reformats were acquired and utilized for image interpretation. This CT examination was performed using dose optimization techniques as appropriate, variously including the following: *Automated exposure control *Adjustment of mA and/or kV according to patient size (this includes techniques or standardized protocols for targeted exams where dose is matched to indication/reason for exam; i.e. extremities or head) *Use of iterative reconstruction technique FINDINGS: HEAD: There is no intracranial hemorrhage, hydrocephalus, extra-axial surface collection, midline shift, or other herniation pattern. [place] to white matter differentiation is diffusely maintained without evidence of an evolved acute territorial infarct. The basilar cisterns are preserved. No significant soft tissue abnormality. No acute osseous abnormality. The paranasal sinuses and the mastoid air cells are well aerated. CERVICAL SPINE: Straightening of the cervical lordosis. Large bridging anterior endplate osteophytes throughout the entire cervical spine. No acute fractures and no acute subluxations. Craniocervical junction is unremarkable. Hypertrophic degenerative changes involving the atlantodental interval. CT/CT cervical spine wo IV con IMPRESSION: - No acute intracranial abnormality. There is left temporal lobe predominant cerebral volume loss. - No acute osseous abnormality within the cervical spine. Cervical spondylosis.
--- NOTE | ~2023-07-09 | CT_ITS ---
CT HEAD WITHOUT IV CONTRAST CT CERVICAL SPINE WITHOUT IV CONTRAST INDICATION: Headache and dizziness. COMPARISON: Head CT 10/30/2021. TECHNIQUE: Multidetector CT acquisitions of the head and cervical spine were obtained without IV contrast. Multiplanar reformats were acquired and utilized for image interpretation. This CT examination was performed using dose optimization techniques as appropriate, variously including the following: *Automated exposure control *Adjustment of mA and/or kV according to patient size (this includes techniques or standardized protocols for targeted exams where dose is matched to indication/reason for exam; i.e. extremities or head) *Use of iterative reconstruction technique FINDINGS: HEAD: There is no intracranial hemorrhage, hydrocephalus, extra-axial surface collection, midline shift, or other herniation pattern. [place] to white matter differentiation is diffusely maintained without evidence of an evolved acute territorial infarct. The basilar cisterns are preserved. No significant soft tissue abnormality. No acute osseous abnormality. The paranasal sinuses and the mastoid air cells are well aerated. CERVICAL SPINE: Straightening of the cervical lordosis. Large bridging anterior endplate osteophytes throughout the entire cervical spine. No acute fractures and no acute subluxations. Craniocervical junction is unremarkable. Hypertrophic degenerative changes involving the atlantodental interval. CT/CT head/brain wo IV con IMPRESSION: - No acute intracranial abnormality. There is left temporal lobe predominant cerebral volume loss. - No acute osseous abnormality within the cervical spine. Cervical spondylosis.
[2023-07-09 11:29] VITALS: BP 169/59; PULSE 52; RESP 18; TEMP 36.4; O2SAT 100; BMI 26.1
--- NOTE | 2023-07-09 11:29 | ED.GENADULT ---
HPI - General Adult General Chief complaint: Back Pain/Injury Stated complaint: Neck Pain Time Seen by Provider: 07/09/23 15:30 Source: patient Mode of arrival: ambulatory Limitations: no limitations History of Present Illness HPI narrative: Patient is a 73-year-old male who presents emergency department for evaluation of diffuse neck pain for the past 5 days. Radiating across the bilateral upper shoulders. Reports progressive symptoms. Particularly worse with flexion or extension. Denies any precipitating injury, reports that he awoke one morning with the pain. Upon review of nursing triage note he admits to having chronic dizziness, when asked the dizziness is not made worse with any position change of the head/neck. The dizziness is intermittent, occurring at random times throughout the day, particularly with position change from sitting to standing, and follows with his primary care provider for this. Denies vision changes, headache, chest pain, shortness of breath, numbness or tingling of the extremities. Related Data Home Medications ?Medication ?Instructions ?Recorded ?Confirmed acetaminophen 500 mg tablet 1,000 mg PO Q6H PRN Pain 10/30/21 04/21/23 Previous Rx's ?Medication ?Instructions ?Recorded Cane #1 ea 10/29/20 metoprolol tartrate 25 mg tablet 12.5 mg (1/2 x 25 mg) PO BID #90 09/01/22 tabs aspirin 81 mg tablet,delayed 81 mg PO DAILY 90 days #90 tabs 09/02/22 release cholecalciferol (vitamin D3) 50 50 mcg PO ONCE #90 caps 09/02/22 mcg (2,000 unit) capsule alirocumab 75 mg/mL subcutaneous 75 mg subcut Q14D 90 days #6 mL 10/30/22 pen injector (Praluent Pen) omeprazole 20 mg capsule,delayed 20 mg PO BID 90 days #180 caps 01/19/23 release levothyroxine 75 mcg tablet 75 mcg PO DAILY #90 tabs 04/20/23 lidocaine 5 % topical patch 1 patch topical DAILY #15 ea 07/09/23 (Lidoderm) Allergies Allergy/AdvReac Type Severity Reaction Status Date / Time aspirin [ASPIRIN] Allergy Severe G6PD Verified 07/09/23 11:32 DEFICIENCY [id number]-NhK Reductase Allergy Mild Muscle Pain Verified 07/09/23 11:32 Inhibitor blue dye [BLUE DYE] Allergy Unknown G6PD Verified 07/09/23 11:32 Sulfa (Sulfonamide Allergy Unknown UNKNOWN Verified 07/09/23 11:32 Antibiotics) [SULFA(SULFONAMIDE ANTIBIOTICS)] BEANS. BAKED Allergy Severe BRE BEANS Uncoded 02/03/23 13:23 ( G6PD DEFICINCEY Review of Systems Review of Systems: Yes all other systems are reviewed and are negative [facility] Past Medical History Attestation statement: The following information was validated with the patient. Source: old records reviewed Medical History Dyspnea on exertion Dysphagia Vitamin D deficiency Hypothyroidism Mild ascending aorta dilatation Pulmonary nodules Restrictive lung disease Chronic cough Hypertension Subclinical hypothyroidism Jadiel's disease Non-toxic multinodular goiter Surgical History Hx of heart artery stent History of thyroid surgery Hx of cholecystectomy Family History Family History Father Hypertension Heart disease Diabetes Mother Hypertension Brother Myocardial infarction Social History Social History Household Members: Spouse and Children Housing: House Alcohol intake: never Patient Tobacco Use Status: Never used Tobacco e-Cigarette/Vaping Use: Never Used Advance Directives: No Advance Directives Information Provided: No Current occupational status: retired Cognitive needs: No Hearing needs: No Vision needs: Yes Physical Exam ED Vital Signs: Vital Signs - 24 hr 07/09/23 11:29 Temperature 97.6 F Pulse Rate 52 Respiratory Rate 18 Blood Pressure 169/59 H Pulse Oximetry 100 Oxygen Delivery Method Room Air BMI result Body Mass Index 26.1 Appearance: Alert.?Oriented to person, place and time. No acute distress.?Normal affect. Eyes: Pupils equal, round and reactive to light.? ENT: Pharynx normal.?? Neck: Normal inspection.? Neck supple.?? No midline cervical spine tenderness, step-offs, deformities. Palpable muscle tenderness along the cervical paraspinal muscles in the bilateral trapezius. Full AROM. No cervical adenopathy. CVS: Heart sounds normal. Normal heart rate and rhythm.? Pulses normal.?? Respiratory: No respiratory distress.? Lung sounds clear to auscultation bilaterally?? Abdomen: Soft and non-tender. Normoactive bowel sounds. Skin: Skin warm and dry.? Normal skin color.? .?? Extremities: No lower extremity edema.? No calf ttp? Neuro: Moves all extremities spontaneously. Sensation intact bilaterally. CN II-XII intact. No focal neuro deficits. Ambulates with normal steady gait. Course Course Course Narrative: RME performed by Josephine Bruce PA-C. Patient is a 73 year old assigned male at presenting to the emergency department with right sided neck pain and inability to move right side of his neck over the last 5 days. Detailed physical exam and review of systems are deferred to the mailing machine helper. Labs and swabs ordered. Patient placed back in the waiting room pending room availability and results. Reevaluation(s) Reevaluation #1: CBC is without leukocytosis, normocytic anemia not meeting any transfusion criteria, no thrombocytopenia or thrombocytosis. No electrolyte derangement. No PARVEEN. Transaminases within normal range. High sensitive troponin is below detectable limits With EKG revealing a sinus bradycardia, ventricular rate of 52, QTC 383, no ST elevation, no ST depression, no acute ischemic findings.. Viral panel is negative. CT of the head reveals no acute intracranial pathology, CT of the cervical spine revealing spondylosis, discussed pain management with tylenol, lidoderm patches, gentle stretching, outpatient follow-up. Time: 16:01 Medical Decision Making Medical Decision Making [facility] Narrative: Patient is a 73-year-old male with past medical history of hypothyroidism, Jadiel's, mild ascending aortic dilation, history of CAD with cardiac stenting, restrictive lung disease, hypertension presenting to emergency department for evaluation of neck pain as per HPI. Overall he appears well, nontoxic, afebrile. He has full range of motion to the neck. Chronic dizziness it is not precipitated with position change of the neck/head, anticipate this to be unrelated. No precipitating injury. Has palpable tenderness on examination of the paraspinal and trapezius muscles bilaterally. Serum labs, EKG, viral testing, and CT of the head/cervical spine were obtained prior to my assumption of care, will review these findings Differential Diagnosis Differential Diagnoses: The differential diagnosis associated with the presentation includes ( muscular strains, ACS, cervical degenerative changes, doubt fracture/subluxation, not consistent with cervical artery dissection) Admission/Observation Consideration of admission/observation: Escalation of care including admission/observation considered Lab Data [facility] Lab Attestation statement: I reviewed the patient's lab results. ( see course narrative) 07/09/23 12:17 07/09/23 12:17 Labs: Lab Results 07/09/23 Range/Units 12:17 WBC 9.7 (4.8-10.8) X10*3/uL RBC 4.60 (4.60-5.80) X10*6/uL Hgb 12.8 L (14.0-18.0) g/dl Hct 40.2 L (42.0-52.0) % MCV 87.4 (80.0-98.0) fL MCH 27.8 (27.0-33.0) pg MCHC 31.8 (31.0-36.0) g/dl RDW 12.9 (11.0-16.0) % Plt Count 270 (160-400) X10*3/uL MPV 10.9 (9.4-12.4) fL Immature Gran % (Auto) 0.4 (0.0-0.4) % Neut % (Auto) 52.7 (45-73) % Lymph % (Auto) 38.5 (20-40) % [place] % (Auto) 6.1 (2-11) % Eos % (Auto) 1.8 (0-4) % Baso % (Auto) 0.5 (0-2) % Lymph # (Auto) 3.7 (1.2-4.9) X10*3/uL [place] # (Auto) 0.6 (0.1-1.2) X10*3/uL Eos # (Auto) 0.2 (0.0-0.4) X10*3/uL Baso # (Auto) 0.1 (0.0-0.2) X10*3/uL Abs Immat Gran (auto) 0.04 H (0.00-0.03) X10*3/uL Absolute Neuts (auto) 5.1 (2.0-8.3) x10*3/uL Absolute Nucleated RBC 0.000 (0.0-0.012) X10*3/uL Nucleated RBC % (auto) 0.0 (0.0-0.2) /100WBC Sodium 138 (135-145) mmol/L Potassium 4.7 (3.3-5.1) mmol/L Chloride 107 (96-108) mmol/L Carbon Dioxide 25 (22-29) mmol/L Anion Gap 11 L (12-20) BUN 14 (9-16) mg/dL Creatinine 0.90 (0.5-1.4) mg/dL Estim Creat Clear Calc 75.4 Estimated GFR > 60 Random Glucose 84 (60-115) mg/dL Calcium 9.0 (8.4-10.2) mg/dL Magnesium 2.3 (1.6-2.6) mg/dL Total Bilirubin 0.5 (0.0-1.0) mg/dL AST 19 (5-37) U/L ALT 16 (0-40) U/L Alkaline Phosphatase 91 (39-117) U/L Troponin I High Sens < 2.7 (<3.5-35.0) ng/L Total Protein 7.3 (6.5-8.0) g/dL Albumin 3.9 (3.5-5.0) g/dL Influenza Type A (PCR) NEGATIVE (Negative) Influenza Type B (PCR) NEGATIVE (Negative) RSV RNA Qual (PCR) NEGATIVE (Negative) SARS-CoV-2 RNA (RT-PCR) NEGATIVE (Negative) Independent Interpretation I performed an independent interpretation of an: EKG ( see course narrative) and CT Scan ( no ICH, no fracture, no subluxation) Radiology Impression Discussion of test interpretation with radiology: I have reviewed the radiologist's reading. Radiologist Impression: CT/CT cervical spine wo IV con IMPRESSION: - No acute intracranial abnormality. There is left temporal lobe predominant cerebral volume loss. - No acute osseous abnormality within the cervical spine. Cervical spondylosis. Independent Historian Clinical information obtained from an independent historian. History obtained from or confirmed by: Other ( daughter present who confirms history) External Record Review External record reviewed: Outpatient record Prescription Management I considered prescription management with: Pain Medication Chronic Conditions Patient?s care impacted by: Hypertension Discharge Plan Discharge Clinical Impression: Cervical spondylosis Patient Disposition: Home, Self-Care Instructions: Neck Pain (ED) Additional Instructions: You can take Tylenol 500 mg, 2 tablets (1,000mg) every 4-6 hours as needed for pain, but not to exceed 3 doses daily (3,000mg). Lidoderm patch to the neck, leave on for 12 hours and remove for 12 hours. Follow-up with your primary care provider. Return back to emergency department any new or worsening symptoms or concerns.? Prescriptions: New lidocaine [Lidoderm] 5 % adhesive patch,medicated 1 patch topical DAILY Qty: 15 0RF Rx Instructions: leave on most painful area for up to 12 hrs No Action (DME) Cane See Rx Instructions .Route .MEDSUPPLY Qty: 1 0RF Rx Instructions: As directed metoprolol tartrate 25 mg tablet 12.5 mg PO BID Qty: 90 3RF aspirin 81 mg tablet,delayed release (DR/EC) 81 mg PO DAILY 90 Days Qty: 90 2RF cholecalciferol (vitamin D3) 50 mcg (2,000 unit) capsule 50 mcg PO ONCE Qty: 90 3RF Praluent Pen 75 mg/mL pen injector 75 mg subcut Q14D 90 Days Qty: 6 3RF omeprazole 20 mg capsule,delayed release(DR/EC) 20 mg PO BID 90 Days Qty: 180 0RF levothyroxine 75 mcg tablet 75 mcg PO DAILY Qty: 90 0RF acetaminophen 500 mg Tablet 1,000 mg PO Q6H PRN (Reason: Pain) Referrals: Irma Reyes MD [Primary Care Provider] - Print Language: Kinyarwanda
--- NOTE | 2023-07-09 11:30 | ECG_ITS ---
Test Reason : NECK PAIN Blood Pressure : / mmHG Vent. Rate : 052 BPM Atrial Rate : 052 BPM P-R Int : 194 ms QRS Dur : 074 ms QT Int : 412 ms P-R-T Axes : 036 -08 014 degrees QTc Int : 383 ms Sinus bradycardia Otherwise normal ECG When compared with ECG of 30-OCT-2021 10:46, Vent. rate has decreased BY 25 BPM Referred By: Josephine Bruce Electronically Signed By:LUIS ARMANDO MOSES MD
[2023-07-09 12:33] LABS: MANUAL DIFF FLAG NO
[2023-07-09 12:35] LABS: Basophils Absolute Auto 0.1 X10*3/uL (0.0-0.2); Basophils Percent Auto 0.5 % (0-2); Eosinophils Absolute Auto 0.2 X10*3/uL (0.0-0.4); Eosinophils Percent Auto 1.8 % (0-4); Hematocrit 40.2 % (42.0-52.0); Hemoglobin 12.8 g/dl (14.0-18.0); Imm Gran Abs Auto 0.04 X10*3/uL (0.00-0.03); Imm Gran Pct Auto 0.4 % (0.0-0.4); Lymphocytes Absolute Auto 3.7 X10*3/uL (1.2-4.9); Lymphocytes Percent Auto 38.5 % (20-40); Mean Corpuscular HGB Conc 31.8 g/dl (31.0-36.0); Mean Corpuscular Hemoglobin 27.8 pg (27.0-33.0); Mean Corpuscular Volume 87.4 fL (80.0-98.0); Mean Platelet Volume 10.9 fL (9.4-12.4); Monocytes Absolute Auto 0.6 X10*3/uL (0.1-1.2); Monocytes Percent Auto 6.1 % (2-11); Neutrophils Absolute Auto 5.1 x10*3/uL (2.0-8.3); Neutrophils Percent Auto 52.7 % (45-73); Platelet Count 270 X10*3/uL (160-400); Red Cell Distribution Width 12.9 % (11.0-16.0); White Blood Count 9.7 X10*3/uL (4.8-10.8)
[2023-07-09 12:53] LABS: Alanine Aminotransferase 16 U/L (0-40); Albumin Level 3.9 g/dL (3.5-5.0); Alkaline Phosphatase 91 U/L (39-117); Anion Gap 11 (12-20); Aspartate Amino Transferase 19 U/L (5-37); Bilirubin Total 0.5 mg/dL (0.0-1.0); Blood Urea Nitrogen 14 mg/dL (9-16); Carbon Dioxide 25 mmol/L (22-29); Chloride 107 mmol/L (96-108); Creatinine Clr Calc Pharmacy 75.4; Estimated Glomerular Filt Rate > 60; Glucose Random 84 mg/dL (60-115); Magnesium 2.3 mg/dL (1.6-2.6); Potassium 4.7 mmol/L (3.3-5.1); Sodium 138 mmol/L (135-145); Total Protein 7.3 g/dL (6.5-8.0)
[2023-07-09 12:58] LABS: Troponin-I High Sensitivity < 2.7 ng/L (<3.5-35.0)
[2023-07-09 13:14] LABS: Influenza A PCR NEGATIVE (Negative); Influenza B PCR NEGATIVE (Negative); Resp Syncy Virus RNA Qual PCR NEGATIVE (Negative); SARS COV2 PCR INHOUSE NEGATIVE (Negative)
[2023-07-09 16:08] VITALS: BP 169/59; PULSE 52; RESP 18; TEMP 36.4; O2SAT 100
== END 2023-07-09 16:09 | disposition home or self-care (01) ==
PROVIDERS: Physician Assistant Medical; Emergency Provider Emergency Medicine; PCP Internal Medicine
DX: M47.812 Spondylosis without myelopathy or radiculopathy, cervical region (principal); I10 Essential (primary) hypertension; Z03.818 Encounter for observation for suspected exposure to other biological agents ruled out; Z88.2 Allergy status to sulfonamides; Z88.6 Allergy status to analgesic agent
CPT/HCPCS: 0241U; 70450; 72125; 80053; 83735; 84484; 85025; 93005; 99283; 99284

== ENCOUNTER → 2023-07-09 11:30 | Outpatient (BNV) | payer MEDICARE, SELFPAY | PROVIDERS: PCP Internal Medicine; Visit Provider Internal Medicine Cardiovascular Disease | DX: R00.1 Bradycardia, unspecified (principal) | CPT/HCPCS: 93010 ==

== ENCOUNTER 2023-09-21 09:41 | Outpatient (AMB) | payer MEDICARE, SELFPAY ==
[2023-09-21 09:57] VITALS: BP 134/64; PULSE 65; O2SAT 97; BMI 25.6
--- NOTE | 2023-09-21 09:57 | A.OFFVIS_ITS ---
Vital Signs 09/21/23 09:57 Height 5 ft 10 in Weight 178 lb 2.136 oz BMI 25.6 BP 134/64 Blood Pressure Location Lt brachial Position Sitting Pulse 65 Pulse Source Pulse Oximeter Pulse Oximetry (%) 97 Oxygen Delivery Method Room Air Intake Visit Reasons: follow up Electrode Turner And Finisher Required: No Accompanied by: Self / Same As Patient Allergies aspirin [ASPIRIN] Allergy (Severe, Verified 07/09/23 11:32) G6PD DEFICIENCY Bhwrjst-[id number]-AwG Reductase Inhibitor Allergy (Mild, Verified 07/09/23 11:32) Muscle Pain blue dye [BLUE DYE] Allergy (Unknown, Verified 07/09/23 11:32) G6PD Sulfa (Sulfonamide Antibiotics) [SULFA(SULFONAMIDE ANTIBIOTICS)] Allergy (Unknown, Verified 07/09/23 11:32) UNKNOWN BEANS. BAKED Allergy (Severe, Uncoded 02/03/23 13:23) BRE BEANS ( G6PD DEFICINCEY Medication List - Last Reconciled 09/21/23 by Kd Nunez MD acetaminophen 1,000 mg PO Q6H PRN alirocumab (Praluent Pen) 75 mg subcut Q14D 90 days aspirin 81 mg PO DAILY 90 days [Cane As directed] cholecalciferol (vitamin D3) 50 mcg PO ONCE levothyroxine 75 mcg PO DAILY lidocaine 5% (Lidoderm) 1 patch topical DAILY metoprolol tartrate 12.5 mg (1/2 x 25 mg) PO BID omeprazole 20 mg PO BID 90 days HPI Comments Details: Melquiades returns for follow-up regarding coronary disease. He underwent coronary CTA that showed significant LAD disease. Subsequently underwent cardiac catheterization and LAD stenting. Since last seen, generally doing fine from cardiac. No clear-cut symptoms like angina. Has aches and pains. [facility] Medical History Dyspnea on exertion Dysphagia Vitamin D deficiency Hypothyroidism Mild ascending aorta dilatation Pulmonary nodules Restrictive lung disease Chronic cough Hypertension Subclinical hypothyroidism Jadiel's disease Non-toxic multinodular goiter Surgical History Hx of heart artery stent History of thyroid surgery Hx of cholecystectomy Family History Father Hypertension Heart disease Diabetes Mother Hypertension Brother Myocardial infarction Social History Household Members: Spouse and Children Housing: House Alcohol intake: never Patient Tobacco Use Status: Never used Tobacco e-Cigarette/Vaping Use: Never Used Current occupational status: retired Cognitive needs: No Hearing needs: No Vision needs: Yes Review of Systems Const Denies chills, Denies fatigue, Denies fever(s), Denies frequent falls, Denies weakness, Denies weight gain and Denies weight loss ENT Denies dizziness Card Denies chest pain, Denies leg edema, Denies lightheadedness, Denies palpitations, Denies dyspnea and Denies dyspnea on exertion Resp Denies cough, Denies dyspnea and Denies dyspnea on exertion GI Denies hematochezia Musc Denies abnormal gait, Denies muscle weakness, Denies numbness, Denies radiating pain into limb and Denies tingling Neuro Denies abnormal gait, Denies dizziness, Denies frequent falls, Denies numbness, Denies tingling and Denies weakness Endo Denies fatigue and Denies palpitations Physical Exam Vital Signs: Last Vital Signs Pulse 65 09/21/23 09:57 BP 134/64 09/21/23 09:57 Pulse Ox 97 09/21/23 09:57 Oxygen Delivery Method Room Air 09/21/23 09:57 BMI result Body Mass Index 25.6 Const General: comfortable and no acute distress Orientation/consciousness: patient oriented x3 HEENT Other: Unremarkable Head: Yes normal to inspection Neck Neck: Yes normal visual inspection Chest Chest palpation & inspection: normal inspection of the chest Resp Auscultation: clear to auscultation bilaterally Cardio Palpation: normal PMI Heart sounds: S1 normal heart sound present, S2 normal heart sound present, no gallops, no murmurs and no rubs GI Palpation (GI): Soft to palpation Back/Spine/Pelvis Other: unremarkable Skin General skin exam: no rashes or lesions noted Neuro General: patient oriented x3 Extrem General: Yes normal to inspection Psych Mental Status: mental status grossly normal Assessment & Plan Assessment & Plan (1) Atherosclerotic cardiovascular disease: Code(s): I25.10 - Atherosclerotic heart disease of [place] coronary artery without angina pectoris Category: Medical Plan: Cardiac catheterization - 2021- mid LAD stenosis, s/p drug-eluting stenting. Mild irregularities in the circumflex but otherwise unremarkable. Continue aspirin. Continue Praluent. Recheck lipids. (2) Mild ascending aorta dilatation: Code(s): I77.810 - Thoracic aortic ectasia Category: Medical Plan: In a prior chest CT, ascending aortic measurement was 4.5 cm x 4.3 cm. In the coronary CTA, it was 4.3 cm. In the most recent echocardiogram, ascending aortic size 4.3 cm. We will check an echocardiogram before his next visit. (3) Essential hypertension: Code(s): I10 - Essential (primary) hypertension Category: Medical Plan: Stable. Plan Discussed with who came for appointment. Orders: Orders CA echo transthoracic complete 6 Months I71.2 - Thoracic aortic aneurysm, without rupture Lipid Panel Today E78.5 - Hyperlipidemia, unspecified Coding Level of Care Code Est Pt Level 4 (00681) Diagnoses Atherosclerotic cardiovascular disease I25.10 Mild ascending aorta dilatation I77.810 Essential hypertension I10
== END 2023-09-21 10:26 | disposition home or self-care (01) ==
PROVIDERS: PCP Internal Medicine; Visit Provider Internal Medicine
DX: I25.10 Atherosclerotic heart disease of native coronary artery without angina pectoris (principal); I77.810 Thoracic aortic ectasia; I10 Essential (primary) hypertension
CPT/HCPCS: 99214

== ENCOUNTER → 2023-09-21 09:41 | Outpatient (BNVA) | payer MEDICARE, SELFPAY | PROVIDERS: PCP Internal Medicine; Visit Provider Internal Medicine | DX: I25.10 Atherosclerotic heart disease of native coronary artery without angina pectoris (principal); I77.810 Thoracic aortic ectasia; I10 Essential (primary) hypertension; Z79.82 Long term (current) use of aspirin; Z79.899 Other long term (current) drug therapy | CPT/HCPCS: 99212 ==

== ENCOUNTER 2023-10-22 15:04 | Outpatient (AMB) | payer MEDICARE, SELFPAY ==
--- NOTE | 2023-10-22 15:05 | MHC.PC.OV ---
Vital Signs 10/22/23 15:06 Height 5 ft 10 in Weight 180 lb 2 oz BMI 25.8 BP 130/78 Blood Pressure Location Rt brachial Position Sitting Pulse 78 Pulse Source Pulse Oximeter Pulse Oximetry (%) 96 Oxygen Delivery Method Room Air Intake Visit Reasons: pain left hand Allergies aspirin [ASPIRIN] Allergy (Severe, Verified 10/22/23 15:06) G6PD DEFICIENCY Wyimwsy-QFD-UpF Reductase Inhibitor Allergy (Mild, Verified 10/22/23 15:06) Muscle Pain blue dye [BLUE DYE] Allergy (Unknown, Verified 10/22/23 15:06) G6PD Sulfa (Sulfonamide Antibiotics) [SULFA(SULFONAMIDE ANTIBIOTICS)] Allergy (Unknown, Verified 10/22/23 15:06) UNKNOWN BEANS. BAKED Allergy (Severe, Uncoded 02/03/23 13:23) BRE BEANS ( G6PD DEFICINCEY Medication List - Last Reconciled 10/22/23 by Irma Reyes MD acetaminophen 1,000 mg PO Q6H PRN alirocumab (Praluent Pen) 75 mg subcut Q14D 90 days aspirin 81 mg PO DAILY 90 days [Cane As directed] cholecalciferol (vitamin D3) 50 mcg PO ONCE levothyroxine 75 mcg PO DAILY lidocaine 5% (Lidoderm) 1 patch topical DAILY metoprolol tartrate 12.5 mg (1/2 x 25 mg) PO BID omeprazole 20 mg PO BID 90 days Tobacco use date assessed: 10/22/23 Fall risk assessment: No Falls in past year Last assessed Fall Risk: 10/22/23 Dental Screening Dental Screen Date: 10/22/23 Did you have a dental visit in the last 12 months?: Yes Did you have a dental problem in the last 6 months where you did not have access to dental care?: No Was dental information given to patient?: Patient has dentist HPI pain left hand HPI Details Patient is 73-year-old gentleman came in today to be evaluated for left arm weakness which has been happening for a while and has gotten worse now Patient says that is left arm also feels sore and having weakness holding things Patient had a CT scan cervical spine done last few months Report reviewed, he has spondylosis cervical spine I have placed a referral for him to be evaluated by Neurology EMG nerve conduction study ordered EKG done today shows normal sinus rhythm no acute ST-T findings compared to previous EKGs [facility] Medical History Dyspnea on exertion Dysphagia Vitamin D deficiency Hypothyroidism Mild ascending aorta dilatation Pulmonary nodules Restrictive lung disease Chronic cough Hypertension Subclinical hypothyroidism Jadiel's disease Non-toxic multinodular goiter Surgical History Hx of thyroidectomy Hx of heart artery stent Hx of cholecystectomy Family History Father Hypertension Heart disease Diabetes Mother Hypertension Brother Myocardial infarction Social History Household Members: Spouse and Children Housing: House Alcohol intake: never Patient Tobacco Use Status: Never used Tobacco e-Cigarette/Vaping Use: Never Used service: No Current occupational status: retired Cognitive needs: No Hearing needs: No Vision needs: Yes Questionnaire PHQ-9 Over the last 2 weeks, how often have you been bothered by any of the following problems? 1. Little interest or pleasure in doing things: nearly every day Source: Developed by Drs. Esteban Kwon, Rossy Hernandez, Samy Peters and colleagues, with an educational sahil from [employer]. Thrive Questionnaire Date Thrive assessed: 10/22/23 I am a: Patient What is your living situation today?: I have a steady place to live Within the past 12 months, did the food you bought not last and you didn't have the money to get more?: Never true Within the past 12 months, did you worry whether your food would run out before you got money to buy more?: Never true Do you have trouble paying for medicines?: No Do you have trouble getting transportation to medical appointments?: No Do you have trouble paying your heating and electricity bill?: No Do you have trouble taking care of your child, family member or friend?: No Do you have trouble with day-to-day activities such as bathing, preparing meals, shopping, managing finances, etc.?: No Are you currently unemployed and looking for a job?: No Are you interested in more education?: No Please select the resources that you would like help with: None Currently or been in a relationship where the following occur: No concerns reported THRIVE Score: 0 AUDIT C Alcohol Use Questionnaire (AUDIT-C) 1. How often do you have a drink containing alcohol?: Never 3. How often do you have six or more drinks on one occasion?: Never Total Score: 0 Score Reviewed/Action Taken: Yes AL-7 AMB Questionnaire AL-7 Date AL - 7 assessed: 10/22/23 Feeling nervous, anxious, or on edge: 0 = Not at all Not being able to stop or control worryin = Not at all Worrying too much about different things: 0 = Not at all Trouble relaxin = Not at all Being so restless that it is hard to sit still: 0 = Not at all Becoming easily annoyed or irritable: 0 = Not at all Feeling afraid as if something awful might happen: 0 = Not at all Total AL-7 score (0-4 normal; 5-9 mild; 10-14 moderate; 15-21 severe): 0 Source: Developed by Drs. Esteban Kwon, Rossy Hernandez, Samy Peters and colleagues, with an educational sahil from [employer]. AL-7 Assessment Billing AL-7 Assessment Tool: AL-7 Assessment 14634 Review of Systems Const Denies chills and Denies fever(s) ENT Denies epistaxis and Denies nasal discharge Card Denies chest pain Resp Denies chest congestion, Denies cough and Denies hemoptysis GI Denies diarrhea and Denies nausea Skin/Breast Denies rash Neuro Reports no additional complaints Psych Reports no additional complaints Endo Reports no additional complaints Physical exam (Primary Care) Vital Signs: Last Vital Signs Pulse 78 10/22/23 15:06 BP 130/78 10/22/23 15:06 Pulse Ox 96 10/22/23 15:06 Oxygen Delivery Method Room Air 10/22/23 15:06 BMI result Body Mass Index 25.8 Tobacco/Smoking Status: Tobacco use Status Tobacco use date assessed 10/22/23 10/22/23 15:08 Patient Tobacco Use Status Never used Tobacco 10/22/23 15:08 e-Cigarette/Vaping Use Never Used 10/22/23 15:08 Thrive Assessment: Date of Thrive Assessment Date Thrive assessed 10/22/23 10/22/23 15:08 Currently or been in a relationship where the following occur: No concerns reported Const General: cooperative, comfortable and no acute distress Orientation/consciousness: patient oriented x3 HENMT Head: Yes normocephalic Eyes General: appearance normal, both eyes and all related structures Neck Neck: Yes supple Resp Effort & Inspection: normal respiratory effort, no cough and no stridor Cardio Rhythm: regular rhythm Heart sounds: S1 normal heart sound present and S2 normal heart sound present Skin General skin exam: turgor normal Neuro Other: Hand medical scientist 4/5 left arm , 5 / 5 right arm, neck supple General: patient oriented x3, tone normal and moves all extremities Extrem Other: Raising left shoulder causes pain in the arm, palpation of shoulder causes mild soreness Right lower extremity: no edema Left lower extremity: no edema Assessment and Plan Assessment & Plan (1) Weakness of left arm: Code(s): R29.898 - Other symptoms and signs involving the musculoskeletal system (2) Pain in left arm: Code(s): M79.602 - Pain in left arm Plan Patient is 73-year-old gentleman came in today to be evaluated for left arm weakness which has been happening for a while and has gotten worse now Patient says that is left arm also feels sore and having weakness holding things Patient had a CT scan cervical spine done last few months Report reviewed, he has spondylosis cervical spine I have placed a referral for him to be evaluated by Neurology EMG nerve conduction study ordered EKG done today shows normal sinus rhythm no acute ST-T findings compared to previous EKGs Orders: Orders NE electromyogram (EMG) Today R29.898 - Other symptoms and signs involving the musculoskeletal system NE nerve conduction velocity Today R29.898 - Other symptoms and signs involving the musculoskeletal system Referrals Neurology Referral R29.898 - Other symptoms and signs involving the musculoskeletal system Coding Level of Care Code Est Pt Level 4 (23426) Diagnoses Weakness of left arm R29.898 Pain in left arm M79.602 Additional Codes AL-7 Assessment Billing - AL-7 Assessment Tool: AL-7 Assessment 95231 ([id number])
[2023-10-22 15:06] VITALS: BP 130/78; PULSE 78; O2SAT 96; BMI 25.8
== END 2023-10-22 15:49 | disposition home or self-care (01) ==
PROVIDERS: PCP Internal Medicine; Visit Provider Internal Medicine
DX: R29.898 Other symptoms and signs involving the musculoskeletal system (principal); M79.602 Pain in left arm
CPT/HCPCS: 99214

== ENCOUNTER 2023-11-30 09:59 | Outpatient (REF) | payer MEDICARE, SELFPAY ==
--- NOTE | 2023-11-30 10:02 | EMG_ITS ---
Left median and ulnar motor and sensory studies were performed. Left radial and median and lateral antecubital brachial sensory studies were performed, and needle examination was performed. IMPRESSION: Mild left ulnar neuropathy across cubital tunnel. Otherwise, no significant abnormality noted. MD AGUS Shaw/KAREL / [id number]
== END 2023-11-30 10:00 | disposition home or self-care (01) ==
LOC: HO.NEURO 09:59
PROVIDERS: PCP Internal Medicine; Visit Provider Internal Medicine
DX: R29.898 Other symptoms and signs involving the musculoskeletal system (principal)
CPT/HCPCS: 95886; 95910

== ENCOUNTER 2023-12-02 09:34 | Outpatient (REF) | payer MEDICARE, SELFPAY ==
--- NOTE | ~2023-12-02 | XR_ITS ---
EXAMINATION: XR SHOULDER, LEFT CLINICAL INFORMATION: Osteoarthritis COMPARISON: None available. TECHNIQUE: AP external rotation, Grashey, scapular Y, and axillary views of the left shoulder. FINDINGS: Mild acromioclavicular arthritis. Glenohumeral joint is maintained. No acute fracture or dislocation. No abnormal soft tissue calcification. XR/XR shoulder LT min 2V IMPRESSION: Mild acromioclavicular arthritis Electronically signed by: Bipin Mora MD 12/08/2023 10:36 AM EDT
== END 2023-12-02 09:35 | disposition home or self-care (01) ==
LOC: HO.XRAY 09:34
PROVIDERS: PCP Internal Medicine; Visit Provider Psychiatry & Neurology Neurology
DX: M19.011 Primary osteoarthritis, right shoulder (principal)
CPT/HCPCS: 73030

== ENCOUNTER 2024-02-14 10:08 | Outpatient (AMB) | payer MEDICARE, SELFPAY ==
--- NOTE | 2024-02-14 10:13 | A.OFFVIS_ITS ---
Vital Signs 02/14/24 10:17 Height 5 ft 10 in Weight 172 lb BMI 24.7 BP 137/72 Blood Pressure Location Lt brachial Position Sitting Pulse 85 Pulse Source Pulse Oximeter Pulse Oximetry (%) 99 Oxygen Delivery Method Room Air Intake Visit Reasons: Sciatica Intake Note: Pain today 09/12 Financial Sales Associate Required: No Accompanied by: Spouse Allergies aspirin [ASPIRIN] Allergy (Severe, Verified 02/14/24 10:19) G6PD DEFICIENCY Jmbcjvh-NFI-RxN Reductase Inhibitor Allergy (Mild, Verified 02/14/24 10:19) Muscle Pain blue dye [BLUE DYE] Allergy (Unknown, Verified 02/14/24 10:19) G6PD Sulfa (Sulfonamide Antibiotics) [SULFA(SULFONAMIDE ANTIBIOTICS)] Allergy (Unknown, Verified 02/14/24 10:19) UNKNOWN BEANS. BAKED Allergy (Severe, Uncoded 02/03/23 13:23) BRE BEANS ( G6PD DEFICINCEY HPI HPI Sciatica: Details: Patient is a pleasant 73 years old male with prior history of chronic low back pain with sciatica since , knee arthritis, degenerative changes of mid to lower back and bilateral sacroiliac joints, NAOMY/CPAP presents today for initial evaluation for low back pain with bilateral leg pain, worse on the left. Denies any recent trauma, injury or falls. Patient reports worsening lower back pain with radiation into his posterior and lateral aspects of both legs and into his feet, worse on the left. He avoids standing or walking for more than 3-5 minutes due to shooting, throbbing and tingling sensations in his left leg. He also has significant left sacroiliac joint pain on the left with positive provocative testing. Pain is partially relieved with rest or sleeping on his right side. He completed course of PT for back and knee pain about 6 years ago which he found very beneficial at that time. However, he is hesitant to start PT now due to significant pain. Patient's reports they used to go for regular walks with patient but not anymore due to patient's sciatica symptoms. He receives right knee cortisone injection over 10 years ago with good results, denies previous spine injections or surgery. Pain affects his daily activities and functioning, mobility, sleep, mood, and social interactions. Denies any fever or chills, abdominal or groin pain, foot drop, bladder or bowel dysfunction or saddle anesthesia. Location: Bilateral hips radiates down alina legs, worse on the left Duration: Chroncic pain for many years, worsening for past 2-3 months Characteristics of symptom or complaint: Throbbing, burning, numbness and tingling, radiating, shooting, aching Aggravating or associated factors: Standing, walking, sleeping on right side, standing, changing positions Relieving factors: None, tried Motrin, Lidocaine patch, heat Treatment: PT, knee injection, TENS unit, chiropractic therapy [facility] Medical History (Updated 02/14/24 @ 14:49 by ADIA Wharton) Severe obstructive sleep apnea Dyspnea on exertion Dysphagia Vitamin D deficiency Hypothyroidism Mild ascending aorta dilatation Pulmonary nodules Restrictive lung disease Chronic cough Hypertension Subclinical hypothyroidism Jadiel's disease Non-toxic multinodular goiter Surgical History Hx of thyroidectomy Hx of heart artery stent Hx of cholecystectomy Family History Father Hypertension Heart disease Diabetes Mother Hypertension Brother Myocardial infarction Social History Household Members: Spouse and Children Housing: House Alcohol intake: never Patient Tobacco Use Status: Never used Tobacco e-Cigarette/Vaping Use: Never Used service: No Current occupational status: retired Cognitive needs: No Hearing needs: No Vision needs: Yes Review of Systems Const All systems reviewed & are unremarkable except as noted in HPI and below Physical Exam Vital Signs: Last Vital Signs Pulse 85 02/14/24 10:17 BP 137/72 02/14/24 10:17 Pulse Ox 99 02/14/24 10:17 Oxygen Delivery Method Room Air 02/14/24 10:17 BMI result Body Mass Index 24.7 General: Appears afebrile. Alert and oriented. Mood and affect appropriate. Follows and participates in conversation appropriately. Respiratory effort is unlabored. No cough. Able to transition from sit to stand unassisted. Ambulates with bilaterally normal heel strike and toe off, reports increased LLE pain with standing on toes. General: Yes no CVA tenderness Back/Spine/Pelvis Other: Limited lumbar ROM due to pain. Antalgic gait with mild limping. Can flex forward to 65-70 degrees and extend to 5-10 degrees before experiencing lumbar pain. Demonstrates 5/5 right and 4/5 left strength of quadriceps bilaterally as well as flexion/dorsiflexion of bilateral feet against resistance. 2+ pedal pulses bilaterally. Seated straight leg rise with dorsiflexion positive on the left. Diminished patellar and achilles reflexes bilaterally. Facet loading test positive bilaterally. Loren sign, Klaus?s, Gaenslen, Pelvic compression and Stinchfield tests are positive bilaterally, left>right. No groin pain with I/E hip rotations. Valsalva maneuver negative. Back: no CVA tenderness Cervical Spine: loss of normal cervical lordosis, cervical muscular tenderness, No Cervical spine tenderness and No step off deformity Thoracic/Lumbar Spine: thoracic and lumbar spine normal to inspection, No Thoracic/lumbar spine scar(s), Lasegue's sign positive on the left and localized, pain with thoraco-lumbar ROM, paraspinal muscle tenderness, thoraco- lumbar ROM limited, No thoracic spinal tenderness and lumbar spinal tenderness (L4-S1) Pelvis: buttock tenderness on the left Sacroiliac joints: bilaterally tender to palpation Extrem General: Yes capillary refill normal, Yes no clubbing, cyanosis or edema and Yes no calf tenderness Results Reviewed Results Reviewed: CT abdomen pelvis w con 10/30/21 OSSEOUS STRUCTURES: Multilevel degenerative changes of the thoracolumbar and lumbosacral spine. No large lytic or blastic lesions are noted. Degenerative changes of the bilateral sacroiliac joints. Assessment & Plan Assessment & Plan (1) Lumbar radiculopathy: Code(s): M54.16 - Radiculopathy, lumbar region Category: Medical (2) Lumbar degenerative disc disease: Code(s): M51.369 - Other intervertebral disc degeneration, lumbar region without mention of lumbar back pain or lower extremity pain Category: Medical (3) Lumbosacral spondylosis: Code(s): M47.817 - Spondylosis without myelopathy or radiculopathy, lumbosacral region Category: Medical (4) Chronic back pain: Code(s): M54.9 - Dorsalgia, unspecified; G89.29 - Other chronic pain Category: Medical (5) Sciatica: Code(s): M54.30 - Sciatica, unspecified side Category: Medical Plan Patient presents today with axial, discogenic and significant spinal stenosis related pain. We will proceed with MRI of the lumbar spine to assess for neural integrity and compression. Patient cannot pursue formal physical therapy at this time due to debilitating low back pain with left leg pain with walking, daily activities and functioning, and sleep. This has been chronic issue for heel with has been progressively worsening for the past 2 months. Patient is aware to call if pain worsens or if he develops any red flag symptoms to seek emergency care. Patient denies any cauda equina syndrome symptoms at this time. Script sent for Medrol pack and lidocaine patches for acute lumbar radiculopathy symptoms. Side effects and precautions were discussed with patient and his . All questions and concerns have been answered the patient and family agreed with the treatment plan. Follow-up for MRI results and sooner as needed. Orders: Orders MR lumbar spine wo con Today M47.817 - Spondylosis without myelopathy or radiculopathy, lumbosacral region, M51.369 - Other intervertebral disc degeneration, lumbar region without mention of lumbar back pain or lower extremity pain, M54.16 - Radiculopathy, lumbar region Medications: New methylprednisolone (Medrol (Luis)) PO PER PKG DIR 21 ea 0RF pain M54.16 - Radiculopathy, lumbar region Refilled lidocaine 5% (Lidoderm) leave on most painful area for up to 12 hrs 1 patch topical DAILY 15 ea 0RF Coding Level of Care Code New Pt Level 4 (11912) Complex EM visit Add On G2211 Diagnoses Lumbar radiculopathy M54.16 Lumbar degenerative disc disease M51.369 Lumbosacral spondylosis M47.817 Chronic back pain M54.9; G89.29 Sciatica M54.30
[2024-02-14 10:17] VITALS: BP 137/72; PULSE 85; O2SAT 99; BMI 24.7
== END 2024-02-14 11:00 | disposition home or self-care (01) ==
PROVIDERS: PCP Internal Medicine; Referring Provider Internal Medicine; Visit Provider Nurse Practitioner Family
DX: M54.16 Radiculopathy, lumbar region (principal); M51.369 Other intervertebral disc degeneration, lumbar region without mention of lumbar back pain or lower extremity pain; M47.817 Spondylosis without myelopathy or radiculopathy, lumbosacral region; M54.9 Dorsalgia, unspecified; G89.29 Other chronic pain; M54.30 Sciatica, unspecified side
CPT/HCPCS: 99204; G2211

== ENCOUNTER → 2024-02-14 10:08 | Outpatient (BNVA) | payer MEDICARE, SELFPAY | PROVIDERS: PCP Internal Medicine; Referring Provider Internal Medicine; Visit Provider Nurse Practitioner Family | DX: M54.16 Radiculopathy, lumbar region (principal); M51.369 Other intervertebral disc degeneration, lumbar region without mention of lumbar back pain or lower extremity pain; M47.817 Spondylosis without myelopathy or radiculopathy, lumbosacral region; M54.9 Dorsalgia, unspecified; M54.30 Sciatica, unspecified side; G89.29 Other chronic pain | CPT/HCPCS: 99202 ==

== ENCOUNTER → 2024-03-17 08:24 | Outpatient (REF) | payer MEDICARE, SELFPAY ==
--- NOTE | 2024-03-17 08:29 | CA_ITS ---
Transthoracic Echocardiogram Patient (Last, First, Middle): Melquiades Self, Gender: Male Date of : 1950 Age: 73 Procedure Date: 03/17/2024 Procedure Type: Transthoracic Echocardiogram Location: OP Height: 175.26 cm Weight: 78.02 kg BSA: 1.94 m2 Heart Rate: 68 bpm BP: 136 / 72 mmHg Chicken Cleaner: SB Referring MD: Kd Nunez MD Sand Technician: Rigoberto Hoffmann MD Symptoms: I71.2 - Thoracic aortic aneurysm, without rupture Study Quality: Adequate w contrast ECG Rhythm: Sinus Conclusions: - 1. Normal LV ejection fraction of 60 65% with impaired relaxation filling pattern 2. Cardiac valvular Dopplers within normal limits 3. Mildly dilated ascending aorta at 4 cm 4. Normal RV systolic pressure Findings Procedure Information Contrast agent, definity, is being given per protocol without apparent complications. The quality of the study was technically difficult. The study quality is limited by patients body habitus and lung artifact. Left Ventricle Normal left ventricular size, thickness, and systolic function. The visually estimated ejection fraction is between 60-65%. Spectral Doppler is indicative of an impaired relaxation filling pattern. E/E prime ratio is between 8 and 15 consistent with indeterminate filling pressures. There is mild septal asymmetric hypertrophy. Right Ventricle The right ventricle was not well visualized. Normal right ventricular cavity size. Atria The left atrium is normal in size. Interatrial shunt cannot be excluded. The right atrium was not well visualized. Aortic Valve The aortic valve was not well visualized. There is mild calcification of the aortic valve. There is no aortic valve stenosis. There is no aortic valve regurgitation. Mitral Valve There is mild anterior and posterior mitral leaflet thickening. There is mild mitral annular calcification. There is trace mitral valve regurgitation. There is no mitral valve stenosis. Pulmonic Valve The pulmonic valve was not well visualized. Tricuspid Valve Likely normal tricuspid valve structure and function. There is mild tricuspid valve regurgitation. The right ventricular systolic pressure is normal. The right ventricular systolic pressure is 28 mmHg. Normal right atrial pressure. There is no evidence of pulmonary hypertension. Great Vessels The pulmonary artery was not well visualized. There is mild dilatation of the ascending aorta measuring 4.00 cm. Small plaque is seen in the sino tubular ridge. Venous The inferior vena cava is normal in size and collapses greater than 50% with inspiration. Pericardium/Pleural There is no evidence of pericardial effusion. Prior Study Comparison Changes noted compared to prior study dated: 01/18/2023. Ascending aorta measured at 4 cm could be underestimated due to suboptimal views Measurements 2D Linear Measurements IVSd: 1.29 0.6-0.9/0.6-1.0 cm LVIDd: 4.10 3.9-5.3/4.2-5.9 cm LVIDd Index: 2.11 2.4-3.2/2.2-3.1 cm/m2 LVIDs: 2.46 2.0-3.6 cm LVPWd: 0.75 0.7-1.1 cm LA Diam: 3.60 2.7-3.8/3.0-4.0 cm LAIDs Index: 1.86 1.5-2.3 cm/m2 LV Mass: 169.17 67-162/88-224 g LV Mass Index: 87.20 43-95/49-115 g/m2 LVOT Diam: 2.00 3.0+(-)1.3 cm 2D Systolic Function EF 4C: 62.90 >55% EF 2C: 59.40 >55% EF BiP: 61.00 >55% Mitral Valve MV Pk E: 0.60 MV PK A: 0.71 MV Decel Time: 238.00 E/A: 0.80 E'Lateral: 6.74 E'Medial: 4.79 E/E' Med: 12.60 E/E' Lat: 9.00 PHT: 70.00 MVA PHT: 3.14 Decel Chicot: 2.54 Aortic Valve AoV Pk Royer: 1.32 AoV Pk Grad: 7.00 SMILEY: 2.27 LVOT LVOT Pk Royer: 0.93 LVOT Mn Royer: 0.64 LVOT VTI: 0.20 LVOT Pk Grad: 3.00 LVOT Mn Grad: 2.00 LVOT Diam: 2.00 LVOT Area: 3.14 Diastolic Function MV Pk E: 0.60 MV Pk A: 0.71 E/A: 0.80 E'Medial: 4.79 E/E' Med: 12.60 E' Laterial: 6.74 E/E' Lat: 9.00 Right Ventricle TAPSE (mm): 25.00 TVS' Royer: 12.50 Tricuspid Valve TR Pk Royer: 2.50 TR Pk Grad: 25.00 RA Press: 3.00 RVSP: 28.00 Great Vessels Aorta Sinus of Valsalva: 3.60 2.0-3.5 cm Ao Asc: 4.00 2.1-3.4 cm Ao Arch: 3.60 Pulmonary Veins Pulm Vein S/D 1.40 Pulmonary Valve PV Pk Royer: 0.90 Peak PV Grad: 3.00 Updated in Other Vendor System with Status of Final Rigoberto Hoffmann MD electronically signed on 03/18/2024 1:11:28 PM with status of Final
--- OUTSIDE RECORDS SUMMARY | 2024-03-17 08:36 | XMS_ITS | Patient Health Record ---
Author Organization [facility] Address [address] [place] [id number] Care Team Providers Care Hospital Education Coordinator Name Role Phone Eric MYRICK, Asma Primary Care Provider Esteban Hendricks [phone] REASON FOR REFERRAL No Information SOCIAL HISTORY Sex Assigned At : Social History Observation Description Sex Assigned At Unknown PLAN OF TREATMENT No Information Insurance Providers Payer Name Payer Address Payer Phone Subscriber Number Group Number Insured Name Patient Relationship to Insured Coverage Start Date Coverage End Date BLUE CR[employer] BLUE [facility] [address] [place] [address] [phone] [id number] IVANA WAGONER Self - patient is the insured
--- OUTSIDE RECORDS SUMMARY | 2024-03-17 08:36 | XMS_ITS ---
Author Organization [facility] Address [address] [place] [phone] Care Team Providers Care Cook Helper Pastry Name Role Phone Eric MYRICK, Asma Primary Care Provider Esteban Hendricks [facility] [phone] REASON FOR VISIT Patient presents today for a colon , egd Encounters Encounter Location Date Provider Diagnosis [facility] [address] [place] [id number] 12/17/2022 Esteban Sheth PLAN OF TREATMENT No Information
--- OUTSIDE RECORDS SUMMARY | 2024-03-17 08:36 | XMS_ITS ---
Author Organization [facility] Address [address] [place] [phone] Care Team Providers Care School Of Nursing Director Name Role Phone Eric MYRICK, Asma Primary Care Provider Esteban Hendricks [facility] [phone] REASON FOR VISIT Pt no show Encounters Encounter Location Date Provider Diagnosis [facility] [address] [place] [address] 12/17/2022 Esteban Sheth PLAN OF TREATMENT No Information
== END ==
LOC: HO.CARD 08:24
PROVIDERS: PCP Internal Medicine; Visit Provider Internal Medicine
DX: I71.20 Thoracic aortic aneurysm, without rupture, unspecified (principal)
CPT/HCPCS: 93306; Q9957

== ENCOUNTER → 2024-03-17 08:29 | Outpatient (BNV) | payer MEDICARE, SELFPAY | PROVIDERS: PCP Internal Medicine; Visit Provider Internal Medicine Cardiovascular Disease | DX: I42.2 Other hypertrophic cardiomyopathy (principal) | CPT/HCPCS: 93306 ==

== ENCOUNTER 2024-03-24 18:44 | Outpatient (REF) | payer MEDICARE, SELFPAY ==
--- NOTE | ~2024-03-24 | MR_ITS ---
EXAMINATION: MR LUMBAR SPINE WITHOUT CONTRAST CLINICAL INFORMATION: Lumbar radiculopathy. COMPARISON: Lumbar spine MRI from 03/16/2018. TECHNIQUE: MRI of the lumbar spine was obtained using routine sequences without contrast. FINDINGS: Mild left convex curvature of the lumbar spine. Mild degenerative stepwise retrolisthesis of L1-L4. Degenerative grade 1 anterolisthesis of L4 on L5. Mild degenerative retrolisthesis of L5 on S1. Moderate degenerative disc disease at L1-L2 and L5-S1. Mild degenerative disc disease from L3-L5. Associated mixed Modic type discogenic endplate changes including minimal Modic type I discogenic edema at L1-L2. Mild marrow edema within the posterior elements of L4-S1 consistent with degenerative stress reaction. No additional suspicious marrow edema. The vertebral body heights are well-maintained. The conus medullaris terminates at the level of L2. The distal spinal cord is normal in appearance. Moderate subcutaneous edema within the posterior soft tissues of the back from L2 to S3. No additional significant abnormalities of the paraspinal musculature. There is a 4.2 cm T2 hyperintense cyst in the right kidney (no follow-up imaging recommended based on current guidelines at the time of examination). Otherwise, limited evaluation of the intra-abdominal structures without significant abnormalities. The abdominal aorta is of normal contour and caliber. AXIAL SPINAL LEVELS: T12-L1: Shallow central disc protrusion. There is mild bilateral facet joint arthropathy. There is no neural foraminal stenosis. There is no spinal canal stenosis. L1-L2: Mild diffuse disc bulge. There is moderate right and mild left facet joint arthropathy. There is moderate right and mild left neural foraminal stenosis. There is narrowing of the right subarticular zone with no overt spinal canal stenosis centrally. L2-L3: Mild diffuse disc bulge with superimposed shallow right subarticular disc protrusion. There is moderate bilateral facet joint arthropathy. There is mild bilateral neural foraminal stenosis. There is no spinal canal stenosis. L3-L4: Mild diffuse disc bulge with posterior osseous ridging. There is moderate bilateral facet joint arthropathy. There is mild to moderate right and mild left neural foraminal stenosis. There is narrowing of the subarticular zones with no overt spinal canal stenosis centrally. L4-L5: Moderate diffuse disc bulge exacerbated by uncovering from anterolisthesis. There is severe bilateral facet joint arthropathy. There is moderate right worse than left neural foraminal stenosis. There is stenosis of the subarticular zones with mild spinal canal stenosis centrally. L5-S1: Moderate diffuse disc bulge with posterior osseous ridging. There is moderate bilateral facet joint arthropathy. There is moderate left worse than right neural foraminal stenosis. There is narrowing of the left subarticular zone with no overt spinal canal stenosis centrally. MR/MR lumbar spine wo con IMPRESSION: Moderate multilevel degenerative spondyloarthropathy of the lumbar spine as described in detail above. Most notably, there is mild spinal canal stenosis at L4-L5. Narrowing/stenoses of the subarticular zones and moderate neural foraminal stenoses from L1-S1. Overall, degenerative changes have mildly progressed compared to 2018. Electronically signed by: Jose Matamoros DO 03/27/2024 06:50 AM [facility] GAR
--- OUTSIDE RECORDS SUMMARY | 2024-03-24 18:51 | XMS_ITS ---
Author Organization [facility] Address [address] [place] [address] Care Team Providers Care Insole Buffer Name Role Phone Eric MYRICK, Asma Primary Care Provider Esteban Hendricks [facility] [phone] REASON FOR VISIT Patient presents today for a colon , egd Encounters Encounter Location Date Provider Diagnosis [facility] [address] [place] [id number] 12/17/2022 Esteban Sheth PLAN OF TREATMENT No Information
--- OUTSIDE RECORDS SUMMARY | 2024-03-24 18:52 | XMS_ITS | Patient Health Record ---
Author Organization [facility] Address [address] [place] [id number] Care Team Providers Care Parts Counter Sales Person Name Role Phone Eric MYRICK, Asma Primary Care Provider Esteban Hendricks [phone] REASON FOR REFERRAL No Information SOCIAL HISTORY Sex Assigned At : Social History Observation Description Sex Assigned At Unknown PLAN OF TREATMENT No Information Insurance Providers Payer Name Payer Address Payer Phone Subscriber Number Group Number Insured Name Patient Relationship to Insured Coverage Start Date Coverage End Date BLUE CROSS BLUE [facility] [address] [place] [address] [id number] IVANA WAGONER Self - patient is the insured
--- OUTSIDE RECORDS SUMMARY | 2024-03-24 18:52 | XMS_ITS | Continuity of Care Document ---
Author Organization [facility] Address [address] [place] [address] Phone Care Team Providers Care Case Management Assistant Name Role Phone Bin De Jesus PT Unavailable Unavailable Procedures Procedure Date Doc neg elder mal no plan PT Evaluation High Complexity Therapeutic Activities Neuromuscular Re-Ed Therapeutic Exercise Advance Directives Directive Yes / No Effective Date File Name No Information Encounters Encounter Description Practice Location Reason(s) For Visit Diagnoses Date Provider Providers Copied on Encounter [facility], [address], [place], [place], [id number], [place] tel:[phone] [facility] No Information Liza Steward. . Referring Provider: Access Direct. Family History Family Member Type Diagnosis Age At Onset No Information Payers Payer name Insurance type Covered libertarian ID Authoriza tion(s) Self Pay - GFE Social History Type Description Quantity Date Captured Comments Alcohol Use Details Unknown Caffeine Use Details Unknown Tobacco Use Status Current non-smoker Smoking Status Never smoker Non-Smoking Tobacco Use Details : No Details Available : No Details Available Sex Male Vital Signs Date / Time: Height Weight BMI Pulse Rate Blood Pressure Temperature Respiratory Rate Body Surface Area Head Circumference Head Circ. Percentile Wt./Po. Percentile BMI percentile Pulse Ox Inhaled Ox 8:43 AM 70.00 in 72.570 kg (160.00 lbs) 22.9 6 kg/m eter (2) 1.89 meter(2) Chief Complaint And Reason For Visit No Information Reason For Referral Reason For Referral No Information History Of Present Illness Encounter Date Complaint History Of Prese nt Illness No Information Functional Status Date Functional Assessmen t No Information Instructions Date Instruction Additional Infor mation No Information Assessments Type Assessment Date No Information Patient Care Teams Name Effective Dates (start - stop) Status Members No Information
== END 2024-03-24 18:45 | disposition home or self-care (01) ==
LOC: HO.MRI 18:44
PROVIDERS: PCP Internal Medicine; Visit Provider Nurse Practitioner Family
DX: M54.16 Radiculopathy, lumbar region (principal); M51.369 Other intervertebral disc degeneration, lumbar region without mention of lumbar back pain or lower extremity pain; M47.817 Spondylosis without myelopathy or radiculopathy, lumbosacral region
CPT/HCPCS: 72148

== ENCOUNTER 2024-04-03 13:33 | Outpatient (AMB) | payer MEDICARE, SELFPAY ==
--- NOTE | 2024-04-03 13:40 | MHC.OFFVIS ---
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 BAKED Allergy (Severe, Uncoded 02/03/23 13:23) BRE BEANS ( G6PD DEFICINCEY HPI Comments Details: Patient presents today for follow up to review recent lumbar spine MRI results. Denies any recent cough, cold, infection, fever or other significant changes in medical history since last office visit. PRIOR: Patient is a pleasant 73 years old male with prior history of chronic low back pain with sciatica since , knee arthritis, degenerative changes of mid to lower back and bilateral sacroiliac joints, NAOMY/CPAP presents today for initial evaluation for low back pain with bilateral leg pain, worse on the left. Denies any recent trauma, injury or falls. Patient reports worsening lower back pain with radiation into his posterior and lateral aspects of both legs and into his feet, worse on the left. He avoids standing or walking for more than 3-5 minutes due to shooting, throbbing and tingling sensations in his left leg. He also has significant left sacroiliac joint pain on the left with positive provocative testing. Pain is partially relieved with rest or sleeping on his right side. He completed course of PT for back and knee pain about 6 years ago which he found very beneficial at that time. However, he is hesitant to start PT now due to significant pain. Patient's reports they used to go for regular walks with patient but not anymore due to patient's sciatica symptoms. He receives right knee cortisone injection over 10 years ago with good results, denies previous spine injections or surgery. Pain affects his daily activities and functioning, mobility, sleep, mood, and social interactions. Denies any fever or chills, abdominal or groin pain, foot drop, bladder or bowel dysfunction or saddle anesthesia. Location: Bilateral hips radiates down alina legs, worse on the left Duration: Chroncic pain for many years, worsening for past 2-3 months Characteristics of symptom or complaint: Throbbing, burning, numbness and tingling, radiating, shooting, aching Aggravating or associated factors: Standing, walking, sleeping on right side, standing, changing positions Relieving factors: None, tried Motrin, Lidocaine patch, heat Treatment: PT, knee injection, TENS unit, chiropractic therapy [facility] Medical History Severe obstructive sleep apnea Dyspnea on exertion Dysphagia Vitamin D deficiency Hypothyroidism Mild ascending aorta dilatation Pulmonary nodules Restrictive lung disease Chronic cough Hypertension Subclinical hypothyroidism Jadiel's disease Non-toxic multinodular goiter Surgical History Hx of thyroidectomy Hx of heart artery stent Hx of cholecystectomy Family History Father Hypertension Heart disease Diabetes Mother Hypertension Brother Myocardial infarction Social History Household Members: Spouse and Children Housing: House Alcohol intake: never Patient Tobacco Use Status: Never used Tobacco e-Cigarette/Vaping Use: Never Used service: No Current occupational status: retired Cognitive needs: No Hearing needs: No Vision needs: Yes Review of Systems Const All systems reviewed & are unremarkable except as noted in HPI and below Physical Exam Vital Signs: Last Vital Signs Pulse 91 04/03/24 13:46 BP 130/75 04/03/24 13:46 BMI result Body Mass Index 24.7 General: Appears afebrile. Alert and oriented. Mood and affect appropriate. Follows and participates in conversation appropriately. Respiratory effort is unlabored. No cough. Able to transition from sit to stand unassisted. Ambulates with bilaterally normal heel strike and toe off, reports increased LLE pain with standing on toes. General: Yes no CVA tenderness Back/Spine/Pelvis Other: Limited lumbar ROM due to pain. Antalgic gait with mild limping. Can flex forward to 65-70 degrees and extend to 5-10 degrees before experiencing lumbar pain. Demonstrates 5/5 right and 4/5 left strength of quadriceps bilaterally as well as flexion/dorsiflexion of bilateral feet against resistance. 2+ pedal pulses bilaterally. Straight leg rise with dorsiflexion positive on the left. Diminished patellar and achilles reflexes bilaterally. Facet loading test positive bilaterally. Loren sign, Klaus?s, Gaenslen, Pelvic compression and Stinchfield tests are positive bilaterally, left>right. No groin pain with I/E hip rotations. Valsalva maneuver negative. Back: no CVA tenderness Cervical Spine: loss of normal cervical lordosis, cervical muscular tenderness, No Cervical spine tenderness and No step off deformity Thoracic/Lumbar Spine: thoracic and lumbar spine normal to inspection, No Thoracic/lumbar spine scar(s), Lasegue's sign positive on the left and localized, pain with thoraco-lumbar ROM, paraspinal muscle tenderness, thoraco-lumbar ROM limited, No thoracic spinal tenderness and lumbar spinal tenderness (L4-S1) Pelvis: buttock tenderness on the left Sacroiliac joints: bilaterally tender to palpation Results Reviewed Results Reviewed: CT abdomen pelvis w con 10/30/21 OSSEOUS STRUCTURES: Multilevel degenerative changes of the thoracolumbar and lumbosacral spine. No large lytic or blastic lesions are noted. Degenerative changes of the bilateral sacroiliac joints. MR LUMBAR SPINE WITHOUT CONTRAST 03/24/24 CLINICAL INFORMATION: Lumbar radiculopathy. COMPARISON: Lumbar spine MRI from 03/16/2018. TECHNIQUE: MRI of the lumbar spine was obtained using routine sequences without contrast. FINDINGS: Mild left convex curvature of the lumbar spine. Mild degenerative stepwise retrolisthesis of L1-L4. Degenerative grade 1 anterolisthesis of L4 on L5. Mild degenerative retrolisthesis of L5 on S1. Moderate degenerative disc disease at L1-L2 and L5-S1. Mild degenerative disc disease from L3-L5. Associated mixed Modic type discogenic endplate changes including minimal Modic type I discogenic edema at L1-L2. Mild marrow edema within the posterior elements of L4-S1 consistent with degenerative stress reaction. No additional suspicious marrow edema. The vertebral body heights are well-maintained. The conus medullaris terminates at the level of L2. The distal spinal cord is normal in appearance. Moderate subcutaneous edema within the posterior soft tissues of the back from L2 to S3. No additional significant abnormalities of the paraspinal musculature. There is a 4.2 cm T2 hyperintense cyst in the right kidney (no follow-up imaging recommended based on current guidelines at the time of examination). Otherwise, limited evaluation of the intra-abdominal structures without significant abnormalities. The abdominal aorta is of normal contour and caliber. AXIAL SPINAL LEVELS: T12-L1: Shallow central disc protrusion. There is mild bilateral facet joint arthropathy. There is no neural foraminal stenosis. There is no spinal canal stenosis. L1-L2: Mild diffuse disc bulge. There is moderate right and mild left facet joint arthropathy. There is moderate right and mild left neural foraminal stenosis. There is narrowing of the right subarticular zone with no overt spinal canal stenosis centrally. L2-L3: Mild diffuse disc bulge with superimposed shallow right subarticular disc protrusion. There is moderate bilateral facet joint arthropathy. There is mild bilateral neural foraminal stenosis. There is no spinal canal stenosis. L3-L4: Mild diffuse disc bulge with posterior osseous ridging. There is moderate bilateral facet joint arthropathy. There is mild to moderate right and mild left neural foraminal stenosis. There is narrowing of the subarticular zones with no overt spinal canal stenosis centrally. L4-L5: Moderate diffuse disc bulge exacerbated by uncovering from anterolisthesis. There is severe bilateral facet joint arthropathy. There is moderate right worse than left neural foraminal stenosis. There is stenosis of the subarticular zones with mild spinal canal stenosis centrally. L5-S1: Moderate diffuse disc bulge with posterior osseous ridging. There is moderate bilateral facet joint arthropathy. There is moderate left worse than right neural foraminal stenosis. There is narrowing of the left subarticular zone with no overt spinal canal stenosis centrally. IMPRESSION: Moderate multilevel degenerative spondyloarthropathy of the lumbar spine as described in detail above. Most notably, there is mild spinal canal stenosis at L4-L5. Narrowing/stenoses of the subarticular zones and moderate neural foraminal stenoses from L1-S1. Overall, degenerative changes have mildly progressed compared to 2018. Assessment & Plan Assessment & Plan (1) Peripheral neuropathy: Code(s): G62.9 - Polyneuropathy, unspecified Category: Medical (2) Lumbar radiculopathy: Code(s): M54.16 - Radiculopathy, lumbar region Category: Medical (3) Lumbar degenerative disc disease: Code(s): M51.369 - Other intervertebral disc degeneration, lumbar region without mention of lumbar back pain or lower extremity pain Category: Medical (4) Lumbosacral spondylosis: Code(s): M47.817 - Spondylosis without myelopathy or radiculopathy, lumbosacral region Category: Medical (5) Lumbar spinal stenosis: Code(s): M48.061 - Spinal stenosis, lumbar region without neurogenic claudication Category: Medical Plan Patient continues to endorse axial, discogenic and significant spinal stenosis related pain. We reviewed MRI of the lumbar spine consistent with his back exam and symptoms. He endorses significant left sided radicular symptoms with numbness and tingling in his both feet but more localized to sole of his left foot and 5th toe. He had partial pain relief with Medrol Luis. Patient reports intermittent radicular symptoms on the right side with walking or ADLs. Patient cannot pursue formal physical therapy at this time due to debilitating low back pain with left leg pain. Schedule Left L4-L5, L5-S1 TFESI with local and fluoroscopy. Expectations, risks and benefits were reviewed. Patient is aware he will be contacted to schedule this procedure. Patient is aware of hyperglycemic effects of steroids. All questions were answered and the patient is in agreement of plan. Follow-up after injections and sooner as needed. Medications: New alpha lipoic acid 600 mg PO DAILY 300 tabs 0RF pain 300 days G62.9 - Polyneuropathy, unspecified Coding Level of Care Code Est Pt Level 4 (84796) Complex EM visit Add On G2211 Diagnoses Peripheral neuropathy G62.9 Lumbar radiculopathy M54.16 Lumbar degenerative disc disease M51.369 Lumbosacral spondylosis M47.817 Lumbar spinal stenosis M48.061
[2024-04-03 13:46] VITALS: BP 130/75; PULSE 91; BMI 24.7
== END 2024-04-03 14:22 | disposition home or self-care (01) ==
PROVIDERS: PCP Internal Medicine; Visit Provider Nurse Practitioner Family
DX: G62.9 Polyneuropathy, unspecified (principal); M54.16 Radiculopathy, lumbar region; M51.369 Other intervertebral disc degeneration, lumbar region without mention of lumbar back pain or lower extremity pain; M47.817 Spondylosis without myelopathy or radiculopathy, lumbosacral region; M48.061 Spinal stenosis, lumbar region without neurogenic claudication
CPT/HCPCS: 99214; G2211

== ENCOUNTER → 2024-04-03 13:33 | Outpatient (BNVA) | payer MEDICARE, SELFPAY | PROVIDERS: PCP Internal Medicine; Visit Provider Nurse Practitioner Family | DX: G62.9 Polyneuropathy, unspecified (principal); M54.16 Radiculopathy, lumbar region; M51.369 Other intervertebral disc degeneration, lumbar region without mention of lumbar back pain or lower extremity pain; M47.817 Spondylosis without myelopathy or radiculopathy, lumbosacral region; M48.061 Spinal stenosis, lumbar region without neurogenic claudication; Z71.2 Person consulting for explanation of examination or test findings | CPT/HCPCS: 99212 ==

== ENCOUNTER 2024-04-20 09:02 | Outpatient (REF) | payer MEDICARE, SELFPAY ==
--- NOTE | ~2024-04-20 | FL_ITS ---
EXAMINATION: FL GUIDANCE ONLY HISTORY: M54.16 - Radiculopathy, lumbar region COMPARISON: None available. TECHNIQUE: Fluoroscopy time: 0.4 minutes. Cumulative Dose: 15.2 mGy. DAP: 0.123 uGy-m2 (microgray-meter squared). Images: 3. FINDINGS: Images demonstrate probes directed toward lumbar vertebral bodies from a left posterior approach. FL/FL guidance in treatment room IMPRESSION: Fluoroscopy during procedure. Please see procedure report for additional information. Electronically signed by: Esteban Anne MD 04/24/2024 03:09 PM RODNEY
== END 2024-04-20 09:03 | disposition home or self-care (01) ==
LOC: CF 09:02
PROVIDERS: PCP Internal Medicine; Visit Provider Internal Medicine
DX: M54.16 Radiculopathy, lumbar region (principal)
CPT/HCPCS: 64483; 64484; J1100; J2003; Q9967

== ENCOUNTER 2024-04-20 12:42 | Outpatient (AMB) | payer MEDICARE, SELFPAY ==
[2024-04-20 12:42] VITALS: BP 133/70; PULSE 66; O2SAT 99
--- NOTE | 2024-04-20 12:42 | MHC.OFFVIS ---
Vital Signs 04/20/24 12:42 04/20/24 13:28 BP 133/70 134/69 Blood Pressure Location Lt brachial Lt brachial Position Sitting Sitting Pulse 66 70 Pulse Source Pulse Oximeter Pulse Oximeter Pulse Oximetry (%) 99 98 Oxygen Delivery Method Room Air Room Air Intake Visit Reasons: Left L4-L5, L5-S1 TFESI Allergies aspirin [ASPIRIN] Allergy (Severe, Verified 04/26/24 10:30) G6PD DEFICIENCY Wcloflo-CRP-HeD Reductase Inhibitor Allergy (Mild, Verified 04/26/24 10:30) Muscle Pain blue dye [BLUE DYE] Allergy (Unknown, Verified 04/26/24 10:30) G6PD Sulfa (Sulfonamide Antibiotics) [SULFA(SULFONAMIDE ANTIBIOTICS)] Allergy (Unknown, Verified 04/26/24 10:30) UNKNOWN BEANS. BAKED Allergy (Severe, Uncoded 02/03/23 13:23) BRE BEANS ( G6PD DEFICINCEY PFSH Medical History Severe obstructive sleep apnea Dyspnea on exertion Dysphagia Vitamin D deficiency Hypothyroidism Mild ascending aorta dilatation Pulmonary nodules Restrictive lung disease Chronic cough Hypertension Subclinical hypothyroidism Jadiel's disease Non-toxic multinodular goiter Surgical History Hx of thyroidectomy Hx of heart artery stent Hx of cholecystectomy Family History Father Hypertension Heart disease Diabetes Mother Hypertension Brother Myocardial infarction Social History Household Members: Spouse and Children Housing: House Alcohol intake: never Patient Tobacco Use Status: Never used Tobacco e-Cigarette/Vaping Use: Never Used service: No Current occupational status: retired Cognitive needs: No Hearing needs: No Vision needs: Yes Physical Exam Vital Signs: Last Vital Signs Pulse 70 04/20/24 13:28 BP 134/69 04/20/24 13:28 Pulse Ox 98 04/20/24 13:28 Oxygen Delivery Method Room Air 04/20/24 13:28 Office Procedures Details: Transforaminal epidural steroid injection, Left L4 and L5 After obtaining written consent, pre-procedure blood pressure and heart rate were stable and recorded in the nursing record. The patient was placed in the prone position on the fluoroscopy table. The lumbosacral area was prepped with chloraprep, allowed to dry and draped in sterile fashion. Using fluoroscopy, the skin overlying our target was anesthetized with 0.5% lidocaine. A 22 gauge 3.5 inch spinal needle was advanced to the safe triangle in the upper pole of the left L4 foramen. No paresthesias were elicited with needle placement and aspiration was negative for blood and CSF. Correct needle position was confirmed with approximately 1 ml contrast dye (Omnipaque 180 mg/ml) injected under real-time fluoroscopy. No evidence of vascular or intrathecal uptake was seen and there was both epidural and peripheral spread of the contrast agent. 7.5 mg dexamethasone plus 1 ml containing 0.5% lidocaine was slowly injected. The needle was flushed and removed. The same procedure was repeated for the L5 level. The skin was cleansed and a sterile bandages were applied. The patient tolerated the procedure well and no complications were encountered. Following the procedure the patient's vital signs were stable. The patient was discharged home in good condition with post-procedural instructions. Time Out: Immediately prior to the procedure, the following was verbally confirmed that there is a signed consent form and that the correct patient, planned procedure, site and side are consistent with documentation and that necessary equipment and/or blood products are available prior to the start of the case. Complications: none EBL: <5 cc 35286 - Lumbar/Sacral 20072 - Lumbar/Sacral, additional level Procedure code (CPT) selection complete Assessment & Plan Assessment & Plan (1) Lumbar radiculopathy: Code(s): M54.16 - Radiculopathy, lumbar region Category: Medical Plan Patient is status post left L4/5 and L5/S1 TFESI. Patient tolerated procedure well and was discharged home in stable condition with discharge instructions. All questions were answered. We will follow-up via telephone or in clinic to assess response to therapy. A follow-up appointment was made during today's visit. Orders: Orders FL guidance in treatment room 04/20/24 M54.16 - Radiculopathy, lumbar region Coding Level of Care Code Procedure Only Diagnoses Lumbar radiculopathy M54.16 CPT Codes Transforaminal Epidural Steroid Inj - TESI 3: 43621 - Lumbar/Sacral ([id number]) Transforaminal Epidural Steroid Inj - TESI 4: 52032 - Lumbar/Sacral, additional level ([id number])
[2024-04-20 13:28] VITALS: BP 134/69; PULSE 70; O2SAT 98
== END 2024-04-20 13:44 | disposition home or self-care (01) ==
LOC: HO.PMCPRC 12:42
PROVIDERS: PCP Internal Medicine; Visit Provider Internal Medicine
DX: M54.16 Radiculopathy, lumbar region (principal)
CPT/HCPCS: 64483; 64484

== ENCOUNTER 2024-04-21 09:33 | Outpatient (REF) | payer MEDICARE, SELFPAY ==
[2024-04-21 10:45] LABS: Hematocrit 40.2 % (42.0-52.0); Hemoglobin 12.8 g/dl (14.0-18.0)
[2024-04-21 11:24] LABS: Vitamin B12 1822 pg/mL (200-900)
[2024-04-21 11:31] LABS: Alanine Aminotransferase 21 U/L (0-40); Albumin Level 4.2 g/dL (3.5-5.0); Alkaline Phosphatase 101 U/L (39-117); Anion Gap 10 (12-20); Aspartate Amino Transferase 24 U/L (5-37); Bilirubin Total 0.4 mg/dL (0.0-1.0); Blood Urea Nitrogen 13 mg/dL (9-16); Carbon Dioxide 25 mmol/L (22-29); Chloride 107 mmol/L (96-108); Estimated Glomerular Filt Rate > 60; Ferritin 28 ng/mL (20-250); Glucose Random 133 mg/dL (60-115); Potassium 4.8 mmol/L (3.3-5.1); Sodium 137 mmol/L (135-145); TSH reflex Free T4 1.23 uIU/mL (0.32-4.0); Total Protein 8.1 g/dL (6.5-8.0)
[2024-04-26 13:39] LABS: Vitamin D 25-OH, D2 <4 ng/mL; Vitamin D 25-OH, D3 32 ng/mL; Vitamin D 25-OH, Total 32 ng/mL (30-100)
== END 2024-04-21 09:34 | disposition home or self-care (01) ==
LOC: HO.LAB 09:33
PROVIDERS: PCP Internal Medicine; Visit Provider Internal Medicine
DX: E03.9 Hypothyroidism, unspecified (principal); I10 Essential (primary) hypertension; K21.9 Gastro-esophageal reflux disease without esophagitis; E55.9 Vitamin D deficiency, unspecified; D64.9 Anemia, unspecified
CPT/HCPCS: 36415; 80053; 82306; 82607; 82728; 84443; 85014; 85018

== ENCOUNTER 2024-04-26 10:21 | Outpatient (AMB) | payer MEDICARE, SELFPAY ==
[2024-04-26 10:26] VITALS: BP 122/78; PULSE 86; O2SAT 96; BMI 26.5
--- NOTE | 2024-04-26 10:26 | MHC.PC.OV ---
Vital Signs 04/26/24 10:26 Height 5 ft 10 in Weight 184 lb 6 oz BMI 26.5 BP 122/78 Blood Pressure Location Rt brachial Position Sitting Pulse 86 Pulse Source Pulse Oximeter Pulse Oximetry (%) 96 Oxygen Delivery Method Room Air Intake Visit Reasons: Annual PE Allergies aspirin [ASPIRIN] Allergy (Severe, Verified 04/26/24 10:30) G6PD DEFICIENCY Uzzlndv-OCS-JtX Reductase Inhibitor Allergy (Mild, Verified 04/26/24 10:30) Muscle Pain blue dye [BLUE DYE] Allergy (Unknown, Verified 04/26/24 10:30) G6PD Sulfa (Sulfonamide Antibiotics) [SULFA(SULFONAMIDE ANTIBIOTICS)] Allergy (Unknown, Verified 04/26/24 10:30) UNKNOWN BEANS. BAKED Allergy (Severe, Uncoded 02/03/23 13:23) BRE BEANS ( G6PD DEFICINCEY Medication List - Last Reconciled 04/26/24 by Irma Reyes MD acetaminophen 1,000 mg PO Q6H PRN alirocumab (Praluent Pen) 75 mg subcut Q14D 90 days alpha lipoic acid 600 mg PO DAILY 300 days aspirin 81 mg PO DAILY 90 days [Cane As directed] celecoxib mg PO cholecalciferol (vitamin D3) 50 mcg PO ONCE duloxetine mg PO levothyroxine 75 mcg PO DAILY lidocaine 5% (Lidoderm) 1 patch topical DAILY metoprolol tartrate 12.5 mg (1/2 x 25 mg) PO BID omeprazole 20 mg PO BID 90 days Tobacco use date assessed: 04/26/24 Fall risk assessment: No Falls in past year Last assessed Fall Risk: 04/26/24 Dental Screening Dental Screen Date: 04/26/24 Did you have a dental visit in the last 12 months?: Yes Did you have a dental problem in the last 6 months where you did not have access to dental care?: No Was dental information given to patient?: Patient has dentist HPI Annual PE HPI Details - The patient is a 74-year-old male presenting with a routine examination and chronic condition follow-up. - Has a history of not undergoing a recent colonoscopy after the last one five years ago at [facility]. - Reports chronic sciatica causing long-standing lumbar pain, managed previously with injections. - Elevated vitamin B12 levels, attributed to excessive supplementation which has since been stopped. - Hyperlipidemia formerly managed by Praluent injections, now discontinued due to satisfactory levels. - Manages hypertension with Metoprolol. - Self-reports asymptomatic GERD for which Omeprazole is taken as needed. - Awaiting Vitamin D levels while continuing supplementation. Level pending however patient is to continue the supplement until further notice Health Maintenance - Continuation of Metoprolol for hypertension management. - Colonoscopy is overdue; previously performed 5 years ago. - Vitamin supplementation reviewed, with a pause on B12 due to high levels. - Ongoing management of hyperlipidemia without current pharmacotherapy. - Awaiting Vitamin D results; recommended to continue supplementation. Medications - Metoprolol for hypertension - Omeprazole for Gastroesophageal Reflux Disease (GERD) - Aspirin (dose and indication not specified in the conversation) - Previously on Vitamin B12 supplementation (stopped due to elevated levels) - Praluent (previously used for hyperlipidemia) - Vitamin D supplement (pending laboratory results) Diagnostic results - Labs: Elevated Vitamin B12 level (1800 vs. upper limit 900); vitamin D level pending - No cholesterol levels available due to missing fasting labs Patient Instructions - Stop Vitamin B12 supplementation temporarily due to high levels. - Continue Vitamin D until lab results are available. - Follow up with the consulting software engineer scheduled for May 11 for cardiac evaluation. - Maintain current medication regimen including Metoprolol and Omeprazole. - Monitor symptoms related to sciatica and discuss any changes with pain management physician. Review of Systems - General: No fever no chills - Neurological: No headaches no dizziness - Ear nose throat: No sore throat no hearing difficulty no ear pain - Cardiovascular: No syncope, no chest pain, no palpitations - Gastrointestinal: No nausea vomiting or diarrhea - Endocrine: No polyuria polydipsia no heat intolerance - Genitourinary: No dysuria - Skin: No new complaints Physical Exam General: Cooperative, healthy appearing, comfortable, no acute distress Orientation: Patient oriented x3 Limitations: Patient is at risk for fall balance is impaired Head: Normal to inspection Ears: Within normal limit visually Nose: Normal external nose present Face and sinus: Slight facial swelling noted Eyes: Appearance normal, extraocular movement intact pupils reactive Neck: Normal visual inspection and supple Respiratory: Normal respiratory effort and able to speak in complete sentences. Clear to auscultation, no stridor Cardiovascular: S1 and S2 GI: Normal to inspection. Soft to palpation and nontender Skin: Turgor normal, no acute findings Neuro: Patient oriented x3, motor sensory intact, balance intact, tandem failed Extremities: Normal to inspection FORMERLY [facility], [facility]1983 Medical History Severe obstructive sleep apnea Dyspnea on exertion Dysphagia Vitamin D deficiency Hypothyroidism Mild ascending aorta dilatation Pulmonary nodules Restrictive lung disease Chronic cough Hypertension Subclinical hypothyroidism Jadiel's disease Non-toxic multinodular goiter Surgical History Hx of thyroidectomy Hx of heart artery stent Hx of cholecystectomy Family History Father Hypertension Heart disease Diabetes Mother Hypertension Brother Myocardial infarction Social History Household Members: Spouse and Children Housing: House Alcohol intake: never Patient Tobacco Use Status: Never used Tobacco e-Cigarette/Vaping Use: Never Used service: No Current occupational status: retired Cognitive needs: No Hearing needs: No Vision needs: Yes Questionnaire PHQ-9 Over the last 2 weeks, how often have you been bothered by any of the following problems? 1. Little interest or pleasure in doing things: nearly every day 2. Feeling down, depressed, or hopeless: several days 3. Trouble falling or staying asleep, or sleeping too much: not at all 4. Feeling tired or having little energy: not at all 5. Poor appetite or overeating: not at all 6. Feeling bad about yourself - or that you are a failure or have let yourself or your family down: not at all 7. Trouble concentrating on things, such as reading the newspaper or watching television: not at all 8. Moving or speaking so slowly that other people could have noticed. Or the opposite - being so fidgety or restless that you have been moving around a lot more than usual: not at all 9. Thoughts that you would be better off or of hurting yourself in some way: not at all Total score: 4 Depression Screening Interpretation: Negative Depression Screening Done: Yes 96732 - PHQ-9 Billing: Yes Source: Developed by Drs. Esteban Kwon, Rossy Hernandez, Samy Peters and colleagues, with an educational sahil from [employer]. Thrive Questionnaire Date Thrive assessed: 04/26/24 I am a: Patient What is your living situation today?: I have a steady place to live Within the past 12 months, did the food you bought not last and you didn't have the money to get more?: Never true Within the past 12 months, did you worry whether your food would run out before you got money to buy more?: Never true Do you have trouble paying for medicines?: No Do you have trouble getting transportation to medical appointments?: No Do you have trouble paying your heating and electricity bill?: No Do you have trouble taking care of your child, family member or friend?: No Do you have trouble with day-to-day activities such as bathing, preparing meals, shopping, managing finances, etc.?: No Are you currently unemployed and looking for a job?: No Are you interested in more education?: No Please select the resources that you would like help with: None Currently or been in a relationship where the following occur: No concerns reported THRIVE Score: 0 AUDIT C Alcohol Use Questionnaire (AUDIT-C) 1. How often do you have a drink containing alcohol?: Never 3. How often do you have six or more drinks on one occasion?: Never Total Score: 0 Score Reviewed/Action Taken: Yes AL-7 AMB Questionnaire AL-7 Date AL - 7 assessed: 04/26/24 Feeling nervous, anxious, or on edge: 0 = Not at all Not being able to stop or control worryin = Not at all Worrying too much about different things: 0 = Not at all Trouble relaxin = Not at all Being so restless that it is hard to sit still: 0 = Not at all Becoming easily annoyed or irritable: 0 = Not at all Feeling afraid as if something awful might happen: 0 = Not at all Total AL-7 score (0-4 normal; 5-9 mild; 10-14 moderate; 15-21 severe): 0 Source: Developed by Drs. Esteban Kwon, Rossy Hernandez, Samy Peters and colleagues, with an educational sahil from [employer]. AL-7 Assessment Billing AL-7 Assessment Tool: AL-7 Assessment 67757 Physical exam (Primary Care) Vital Signs: Last Vital Signs Pulse 86 04/26/24 10:26 BP 122/78 04/26/24 10:26 Pulse Ox 96 04/26/24 10:26 Oxygen Delivery Method Room Air 04/26/24 10:26 BMI result Body Mass Index 26.5 Tobacco/Smoking Status: Tobacco use Status Tobacco use date assessed 04/26/24 04/26/24 10:32 Patient Tobacco Use Status Never used Tobacco 04/26/24 10:27 e-Cigarette/Vaping Use Never Used 04/26/24 10:27 PHQ-9: PHQ-9 Score PHQ-9: Total score 4 04/26/24 11:05 Depression Screening Interpretation: Negative Thrive Assessment: Date of Thrive Assessment Date Thrive assessed 04/26/24 04/26/24 10:32 Currently or been in a relationship where the following occur: No concerns reported Coding Level of Care Code Est Pt Level 3 (36227) Est Pt Prev Care >65y(71050) Diagnoses Encounter for general adult medical examination with abnormal findings Z00.01 Colon cancer screening Z12.11 Essential hypertension I10 Unstable angina I20.0 Hearing loss, unspecified hearing loss type, unspecified laterality H91.90 Hearing loss type: unspecified Laterality: unspecified laterality Other specified hypothyroidism E03.8 Vitamin D deficiency E55.9 G6PD deficiency anemia D55.0 Gastroesophageal reflux disease without esophagitis K21.9 Esophagitis presence: without esophagitis Risk for falls Z91.81 Additional Codes AL-7 Assessment Billing - AL-7 Assessment Tool: AL-7 Assessment 27695 ([id number]) PHQ-9 - 06204 - PHQ-9 Billing: Yes ([id number]) Assessment & Plan Assessment & Plan (1) Encounter for general adult medical examination with abnormal findings: Code(s): Z00.01 - Encounter for general adult medical examination with abnormal findings Category: Medical (2) Colon cancer screening: Code(s): Z12.11 - Encounter for screening for malignant neoplasm of colon Category: Medical (3) Essential hypertension: Code(s): I10 - Essential (primary) hypertension Category: Medical (4) Unstable angina: Code(s): I20.0 - Unstable angina Category: Medical (5) Impaired hearing: Code(s): H91.90 - Unspecified hearing loss, unspecified ear Category: Medical Qualifiers: Hearing loss type: unspecified Laterality: unspecified laterality Qualified Code(s): H91.90 - Unspecified hearing loss, unspecified ear (6) Other specified hypothyroidism: Code(s): E03.8 - Other specified hypothyroidism Category: Medical (7) Vitamin D deficiency: Code(s): E55.9 - Vitamin D deficiency, unspecified Category: Medical (8) G6PD deficiency anemia: Code(s): D55.0 - Anemia due to lblnfzi-6-nrqryauiz dehydrogenase [G6PD] deficiency Category: Medical (9) GERD (gastroesophageal reflux disease): Code(s): K21.9 - Gastro-esophageal reflux disease without esophagitis Category: Medical Qualifiers: Esophagitis presence: without esophagitis Qualified Code(s): K21.9 - Gastro-esophageal reflux disease without esophagitis (10) Risk for falls: Code(s): Z91.81 - History of falling Category: Medical Plan - The patient is a 74-year-old male presenting with a routine examination and chronic condition follow-up. - Has a history of not undergoing a recent colonoscopy after the last one five years ago at [facility]. - Reports chronic sciatica causing long-standing lumbar pain, managed previously with injections. - Elevated vitamin B12 levels, attributed to excessive supplementation which has since been stopped. - Hyperlipidemia formerly managed by Praluent injections, now discontinued due to satisfactory levels. - Manages hypertension with Metoprolol. - Self-reports asymptomatic GERD for which Omeprazole is taken as needed. - Awaiting Vitamin D levels while continuing supplementation. Level pending however patient is to continue the supplement until further notice - hypothyroidism, continue levothyroxine 75 mcg, TSH level is within normal limit - chronic mild anemia stable Health Maintenance - Continuation of Metoprolol for hypertension management. - Colonoscopy is overdue; previously performed 5 years ago. - Vitamin supplementation reviewed, with a pause on B12 due to high levels. - Ongoing management of hyperlipidemia without current pharmacotherapy. - Awaiting Vitamin D results; recommended to continue supplementation. Medications - Metoprolol for hypertension - Omeprazole for Gastroesophageal Reflux Disease (GERD) - Aspirin (dose and indication not specified in the conversation) - Previously on Vitamin B12 supplementation (stopped due to elevated levels) - Praluent (previously used for hyperlipidemia) - Vitamin D supplement (pending laboratory results) Diagnostic results - Labs: Elevated Vitamin B12 level (1800 vs. upper limit 900); vitamin D level pending - No cholesterol levels available due to missing fasting labs Patient Instructions - Stop Vitamin B12 supplementation temporarily due to high levels. - Continue Vitamin D until lab results are available. - Follow up with the consulting software engineer scheduled for May 11 for cardiac evaluation. - Maintain current medication regimen including Metoprolol and Omeprazole. - Monitor symptoms related to sciatica and discuss any changes with pain management physician. Orders: Referrals Gastroenterology Referral Z12.11 - Encounter for screening for malignant neoplasm of colon
== END 2024-04-26 11:06 | disposition home or self-care (01) ==
PROVIDERS: PCP Internal Medicine; Visit Provider Internal Medicine
DX: Z00.00 Encounter for general adult medical examination without abnormal findings (principal); D55.0 Anemia due to glucose-6-phosphate dehydrogenase [G6PD] deficiency; I20.0 Unstable angina; Z68.26 Body mass index [BMI] 26.0-26.9, adult; Z12.11 Encounter for screening for malignant neoplasm of colon; I10 Essential (primary) hypertension; E03.8 Other specified hypothyroidism; E55.9 Vitamin D deficiency, unspecified; K21.9 Gastro-esophageal reflux disease without esophagitis; Z91.81 History of falling

== ENCOUNTER → 2024-04-26 10:21 | Outpatient (BNVA) | payer MEDICARE, SELFPAY | PROVIDERS: PCP Internal Medicine; Visit Provider Internal Medicine | DX: Z00.01 Encounter for general adult medical examination with abnormal findings (principal); I10 Essential (primary) hypertension; I20.0 Unstable angina; E03.8 Other specified hypothyroidism; E55.9 Vitamin D deficiency, unspecified; D55.0 Anemia due to glucose-6-phosphate dehydrogenase [G6PD] deficiency; K21.9 Gastro-esophageal reflux disease without esophagitis; Z91.81 History of falling | CPT/HCPCS: 96127; 99397 ==

== ENCOUNTER → 2024-05-11 07:56 | Outpatient (BNVA) | payer MEDICARE, SELFPAY | PROVIDERS: PCP Internal Medicine; Visit Provider Internal Medicine | DX: I25.10 Atherosclerotic heart disease of native coronary artery without angina pectoris (principal); I77.810 Thoracic aortic ectasia; I10 Essential (primary) hypertension | CPT/HCPCS: 99212 ==

== ENCOUNTER 2024-05-16 08:44 | Outpatient (REF) | payer MEDICARE, SELFPAY ==
--- OUTSIDE RECORDS SUMMARY | 2024-05-16 09:07 | XMS_ITS ---
Author Organization [facility] Address [address] [place] [address] Care Team Providers Care Boat Builder And Repairer Name Role Phone Eric MYRICK, Asma Primary Care Provider Esteban Hendricks Unavailable [phone] REASON FOR VISIT Patient presents today for a colon , egd Encounters Encounter Location Date Provider Diagnosis [facility] [address] [place] [address] 12/17/2022 Esteban Sheth PLAN OF TREATMENT Next Appt Details Provider Name:Esteban Sheth , 09/05/2024 10:50:00 AM, [address], [address], [place], [address],
--- OUTSIDE RECORDS SUMMARY | 2024-05-16 09:07 | XMS_ITS | Patient Health Record ---
Author Organization [facility] Address [address] [place] [address] Care Team Providers Care Bulk Tank Driver Name Role Phone Eric MYRICK, Asma Primary Care Provider Esteban Hendricks [phone] REASON FOR REFERRAL No Information SOCIAL HISTORY Sex Assigned At : Social History Observation Description Sex Assigned At Unknown PLAN OF TREATMENT Next Appt Details Provider Name:Esteban Sheth , 09/05/2024 10:50:00 AM, [address], [address], [place], [address], Insurance Providers Payer Name Payer Address Payer Phone Subscriber Number Group Number Insured Name Patient Relationship to Insured Coverage Start Date Coverage End Date [facility] [address] [place] [address] [phone] [id number] IVANA WAGONER Self - patient is the insured
--- OUTSIDE RECORDS SUMMARY | 2024-05-16 09:07 | XMS_ITS ---
Author Organization [facility] Address [address] [place] [address] Care Team Providers Care Naphthalene Operator Name Role Phone Eric MYRICK, Asma Primary Care Provider Esteban Hendricks Unavailable [phone] REASON FOR VISIT Pt no show Encounters Encounter Location Date Provider Diagnosis [facility] [address] [place] [address] 12/17/2022 Esteban Sheth PLAN OF TREATMENT Next Appt Details Provider Name:Esteban Sheth , 09/05/2024 10:50:00 AM, [address], [address], [place], [address],
[2024-05-16 10:29] LABS: Cholesterol 183 mg/dL (<200); HDL Cholesterol 40 mg/dL (>40); LDL Cholesterol Calculated 120 mg/dL (<100); Triglycerides 117 mg/dL (<150)
== END 2024-05-16 08:45 | disposition home or self-care (01) ==
LOC: HO.LAB 08:44
PROVIDERS: PCP Internal Medicine; Visit Provider Internal Medicine
DX: M54.16 Radiculopathy, lumbar region (principal); M48.061 Spinal stenosis, lumbar region without neurogenic claudication; G62.9 Polyneuropathy, unspecified; M51.369 Other intervertebral disc degeneration, lumbar region without mention of lumbar back pain or lower extremity pain; M47.817 Spondylosis without myelopathy or radiculopathy, lumbosacral region; I73.9 Peripheral vascular disease, unspecified; I25.10 Atherosclerotic heart disease of native coronary artery without angina pectoris; E78.5 Hyperlipidemia, unspecified; Z98.890 Other specified postprocedural states
CPT/HCPCS: 36415; 80061; 99212

== ENCOUNTER 2024-05-16 09:15 | Outpatient (AMB) | payer MEDICARE, SELFPAY ==
--- NOTE | 2024-05-16 09:20 | MHC.OFFVIS ---
Vital Signs 05/16/24 09:29 Height 5 ft 10 in Weight 182 lb BMI 26.1 BP 117/62 Blood Pressure Location Lt brachial Position Sitting Pulse 62 Pulse Source Pulse Oximeter Pulse Oximetry (%) 99 Oxygen Delivery Method Room Air Intake Visit Reasons: s/p Left L4-L5, L5-S1 TFESI Intake Note: Pain today 11/12 Academic Advisement Director Required: No Accompanied by: Self / Same As Patient Allergies aspirin [ASPIRIN] Allergy (Severe, Verified 05/16/24 09:30) G6PD DEFICIENCY Vbajfvh-RXJ-RqN Reductase Inhibitor Allergy (Mild, Verified 05/16/24 09:30) Muscle Pain blue dye [BLUE DYE] Allergy (Unknown, Verified 05/16/24 09:30) G6PD Sulfa (Sulfonamide Antibiotics) [SULFA(SULFONAMIDE ANTIBIOTICS)] Allergy (Unknown, Verified 05/16/24 09:30) UNKNOWN BEANS. BAKED Allergy (Severe, Uncoded 02/03/23 13:23) BRE BEANS ( G6PD DEFICINCEY Medication List - Last Reconciled 05/16/24 by ADIA Wharton acetaminophen 1,000 mg PO Q6H PRN alirocumab (Praluent Pen) 75 mg subcut Q14D 90 days aspirin 81 mg PO DAILY 90 days [Cane As directed] cholecalciferol (vitamin D3) 50 mcg PO ONCE levothyroxine 75 mcg PO DAILY lidocaine 5% (Lidoderm) 1 patch topical DAILY metoprolol tartrate 12.5 mg (1/2 x 25 mg) PO BID omeprazole 20 mg PO BID 90 days HPI Comments Details: Patient presents today to assess response to Left L4-L5, L5-S1 TFESI on 04/20/[address] Stallings. Patient reports 20% pain relief since procedure with minimal improvement in his daily activities, functioning, mobility or sleep. He reports decreased walking capacity due to pain, numbness and tingling with left lower extremity weakness with walking, most presentable in L5 distribution. Patient also reports both leg pain in lower legs with walking with some symptoms of peripheral vascular disease. We will follow up for this with Vascular evaluation. Patient states when he sleeps on the right side, he gets increased back pain with numbness, tingling and weakness which makes him to get up at night to relieve pain. He continues to intermittently take Naproxen but was told by Cardiology to avoid NSAIDs. Patient cannot take gabapentin, Lyrica or duloxetine due to blue dye allergy and G6PD defiency anemia. Patient is interested to undergo Neurosurgical evaluation. Denies any recent cough, cold, infection, fever or any significant changes in medical history since last office visit. Past Procedures: 04/20/24: Left L4-L5, L5-S1 TFESI-20% pain relief PRIOR: Patient is a pleasant 73 years old male with prior history of chronic low back pain with sciatica since , knee arthritis, degenerative changes of mid to lower back and bilateral sacroiliac joints, NAOMY/CPAP presents today for initial evaluation for low back pain with bilateral leg pain, worse on the left. Denies any recent trauma, injury or falls. Patient reports worsening lower back pain with radiation into his posterior and lateral aspects of both legs and into his feet, worse on the left. He avoids standing or walking for more than 3-5 minutes due to shooting, throbbing and tingling sensations in his left leg. He also has significant left sacroiliac joint pain on the left with positive provocative testing. Pain is partially relieved with rest or sleeping on his right side. He completed course of PT for back and knee pain about 6 years ago which he found very beneficial at that time. However, he is hesitant to start PT now due to significant pain. Patient's reports they used to go for regular walks with patient but not anymore due to patient's sciatica symptoms. He receives right knee cortisone injection over 10 years ago with good results, denies previous spine injections or surgery. Pain affects his daily activities and functioning, mobility, sleep, mood, and social interactions. Denies any fever or chills, abdominal or groin pain, foot drop, bladder or bowel dysfunction or saddle anesthesia. Location: Bilateral hips radiates down alina legs, worse on the left Duration: Chroncic pain for many years, worsening for past 2-3 months Characteristics of symptom or complaint: Throbbing, burning, numbness and tingling, radiating, shooting, aching Aggravating or associated factors: Standing, walking, sleeping on right side, standing, changing positions Relieving factors: None, tried Motrin, Lidocaine patch, heat Treatment: PT, knee injection, TENS unit, chiropractic therapy [facility] Medical History Severe obstructive sleep apnea Dyspnea on exertion Dysphagia Vitamin D deficiency Hypothyroidism Mild ascending aorta dilatation Pulmonary nodules Restrictive lung disease Chronic cough Hypertension Subclinical hypothyroidism Jadiel's disease Non-toxic multinodular goiter Surgical History Hx of thyroidectomy Hx of heart artery stent Hx of cholecystectomy Family History Father Hypertension Heart disease Diabetes Mother Hypertension Brother Myocardial infarction Social History Household Members: Spouse and Children Housing: House Alcohol intake: never Patient Tobacco Use Status: Never used Tobacco e-Cigarette/Vaping Use: Never Used service: No Current occupational status: retired Cognitive needs: No Hearing needs: No Vision needs: Yes Review of Systems Const All systems reviewed & are unremarkable except as noted in HPI and below Physical Exam Vital Signs: Last Vital Signs Pulse 62 05/16/24 09:29 BP 117/62 05/16/24 09:29 Pulse Ox 99 05/16/24 09:29 Oxygen Delivery Method Room Air 05/16/24 09:29 BMI result Body Mass Index 26.1 General: Appears afebrile. Alert and oriented. Mood and affect appropriate. Follows and participates in conversation appropriately. Respiratory effort is unlabored. No cough. Able to transition from sit to stand unassisted. Ambulates with bilaterally normal heel strike and toe off, reports increased LLE pain with standing on toes. General: Yes no CVA tenderness Back/Spine/Pelvis Other: Limited lumbar ROM due to pain. Antalgic gait with mild limping. Uses cane with ambulation. Lumbar extension and flexion reproduces moderate pain. Demonstrates 5/5 right and 4/5 left strength of quadriceps bilaterally as well as flexion/dorsiflexion of bilateral feet against resistance. 2+ pedal pulses bilaterally. Straight leg rise with dorsiflexion positive on the left. Diminished patellar and achilles reflexes bilaterally. Facet loading test positive bilaterally. Loren sign, Klaus?s, [place], Pelvic compression and Stinchfield tests are positive bilaterally, left>right. No groin pain with I/E hip rotations. Valsalva maneuver is positive. Back: no CVA tenderness Cervical Spine: loss of normal cervical lordosis, cervical muscular tenderness, No Cervical spine tenderness and No step off deformity Thoracic/Lumbar Spine: thoracic and lumbar spine normal to inspection, No Thoracic/lumbar spine scar(s), Lasegue's sign positive on the left and localized, pain with thoraco-lumbar ROM, paraspinal muscle tenderness, thoraco-lumbar ROM limited, No thoracic spinal tenderness and lumbar spinal tenderness (L4-S1) Pelvis: buttock tenderness on the left Sacroiliac joints: bilaterally tender to palpation Extrem General: Yes capillary refill normal, Yes no clubbing, cyanosis or edema, Yes calf tenderness (intermittently with walking, with associated numbness and tingling) and Yes other (multiple varicosities BLE) Results Reviewed Results Reviewed: CT abdomen pelvis w con 10/30/21 OSSEOUS STRUCTURES: Multilevel degenerative changes of the thoracolumbar and lumbosacral spine. No large lytic or blastic lesions are noted. Degenerative changes of the bilateral sacroiliac joints. MR LUMBAR SPINE WITHOUT CONTRAST 03/24/24 CLINICAL INFORMATION: Lumbar radiculopathy. COMPARISON: Lumbar spine MRI from 03/16/2018. TECHNIQUE: MRI of the lumbar spine was obtained using routine sequences without contrast. FINDINGS: Mild left convex curvature of the lumbar spine. Mild degenerative stepwise retrolisthesis of L1-L4. Degenerative grade 1 anterolisthesis of L4 on L5. Mild degenerative retrolisthesis of L5 on S1. Moderate degenerative disc disease at L1-L2 and L5-S1. Mild degenerative disc disease from L3-L5. Associated mixed Modic type discogenic endplate changes including minimal Modic type I discogenic edema at L1-L2. Mild marrow edema within the posterior elements of L4-S1 consistent with degenerative stress reaction. No additional suspicious marrow edema. The vertebral body heights are well-maintained. The conus medullaris terminates at the level of L2. The distal spinal cord is normal in appearance. Moderate subcutaneous edema within the posterior soft tissues of the back from L2 to S3. No additional significant abnormalities of the paraspinal musculature. There is a 4.2 cm T2 hyperintense cyst in the right kidney (no follow-up imaging recommended based on current guidelines at the time of examination). Otherwise, limited evaluation of the intra-abdominal structures without significant abnormalities. The abdominal aorta is of normal contour and caliber. AXIAL SPINAL LEVELS: T12-L1: Shallow central disc protrusion. There is mild bilateral facet joint arthropathy. There is no neural foraminal stenosis. There is no spinal canal stenosis. L1-L2: Mild diffuse disc bulge. There is moderate right and mild left facet joint arthropathy. There is moderate right and mild left neural foraminal stenosis. There is narrowing of the right subarticular zone with no overt spinal canal stenosis centrally. L2-L3: Mild diffuse disc bulge with superimposed shallow right subarticular disc protrusion. There is moderate bilateral facet joint arthropathy. There is mild bilateral neural foraminal stenosis. There is no spinal canal stenosis. L3-L4: Mild diffuse disc bulge with posterior osseous ridging. There is moderate bilateral facet joint arthropathy. There is mild to moderate right and mild left neural foraminal stenosis. There is narrowing of the subarticular zones with no overt spinal canal stenosis centrally. L4-L5: Moderate diffuse disc bulge exacerbated by uncovering from anterolisthesis. There is severe bilateral facet joint arthropathy. There is moderate right worse than left neural foraminal stenosis. There is stenosis of the subarticular zones with mild spinal canal stenosis centrally. L5-S1: Moderate diffuse disc bulge with posterior osseous ridging. There is moderate bilateral facet joint arthropathy. There is moderate left worse than right neural foraminal stenosis. There is narrowing of the left subarticular zone with no overt spinal canal stenosis centrally. IMPRESSION: Moderate multilevel degenerative spondyloarthropathy of the lumbar spine as described in detail above. Most notably, there is mild spinal canal stenosis at L4-L5. Narrowing/stenoses of the subarticular zones and moderate neural foraminal stenoses from L1-S1. Overall, degenerative changes have mildly progressed compared to 2018. Assessment & Plan Assessment & Plan (1) Atherosclerotic cardiovascular disease: Code(s): I25.10 - Atherosclerotic heart disease of [place] coronary artery without angina pectoris Category: Medical (2) PVD (peripheral vascular disease): Code(s): I73.9 - Peripheral vascular disease, unspecified Category: Medical (3) Lumbar radiculopathy: Code(s): M54.16 - Radiculopathy, lumbar region Category: Medical (4) Lumbar spinal stenosis: Code(s): M48.061 - Spinal stenosis, lumbar region without neurogenic claudication Category: Medical (5) Peripheral neuropathy: Code(s): G62.9 - Polyneuropathy, unspecified Category: Medical (6) Lumbar degenerative disc disease: Code(s): M51.369 - Other intervertebral disc degeneration, lumbar region without mention of lumbar back pain or lower extremity pain Category: Medical (7) Lumbosacral spondylosis: Code(s): M47.817 - Spondylosis without myelopathy or radiculopathy, lumbosacral region Category: Medical Plan Patient continues to endorse axial, discogenic and significant spinal stenosis related pain with walking, movements, changing his positions or sleep. He endorses significant left sided radicular symptoms with numbness and tingling in his both feet but more localized to sole of his left foot and toes with minimal relief from recent Left L4-L5, L5-S1 TFESI. He also had minimal relief with Medrol Luis, PT, chiropractic therapy, TENS unit, oral and topical medications. We will proceed with Neurosurgical referral. Patient also reports bilateral lower leg and calves pain with walking. Vascular Referral placed to rule out PVD. All questions were answered and the patient is in agreement of plan. Follow-up after Neurosurgery evaluation and sooner as needed. Orders: Referrals Vascular Surgery Referral I25.10 - Atherosclerotic heart disease of [place] coronary artery without angina pectoris, I73.9 - Peripheral vascular disease, unspecified Neuro Spine Referral M48.061 - Spinal stenosis, lumbar region without neurogenic claudication, M54.16 - Radiculopathy, lumbar region Coding Level of Care Code Est Pt Level 4 (67095) Complex EM visit Add On G2211 Diagnoses Atherosclerotic cardiovascular disease I25.10 PVD (peripheral vascular disease) I73.9 Lumbar radiculopathy M54.16 Lumbar spinal stenosis M48.061 Peripheral neuropathy G62.9 Lumbar degenerative disc disease M51.369 Lumbosacral spondylosis M47.817
[2024-05-16 09:29] VITALS: BP 117/62; PULSE 62; O2SAT 99; BMI 26.1
== END 2024-05-16 09:59 | disposition home or self-care (01) ==
PROVIDERS: PCP Internal Medicine; Visit Provider Nurse Practitioner Family
DX: I25.10 Atherosclerotic heart disease of native coronary artery without angina pectoris (principal); I73.9 Peripheral vascular disease, unspecified; M54.16 Radiculopathy, lumbar region; M48.061 Spinal stenosis, lumbar region without neurogenic claudication; G62.9 Polyneuropathy, unspecified; M51.369 Other intervertebral disc degeneration, lumbar region without mention of lumbar back pain or lower extremity pain; M47.817 Spondylosis without myelopathy or radiculopathy, lumbosacral region
CPT/HCPCS: 99214; G2211

== ENCOUNTER 2024-06-05 09:21 | Outpatient (REF) | payer MEDICARE, SELFPAY ==
--- NOTE | ~2024-06-05 | XR_ITS ---
. EXAMINATION: X-ray lumbar spine, 4 views. CLINICAL INFORMATION: Spinal stenosis, lumbar region without neurogenic claudication. TECHNIQUE: 4 views of the lumbar spine including flexion and extension. COMPARISON: November 17, 2010. FINDINGS: Multilevel syndesmophyte formation lower thoracic and throughout the lumbar spine. Grade 1 anterolisthesis at L4-5 in neutral position which contains during flexion and extension position. Grade 1 retrolisthesis L1 to which maintains during flexion and extension position. S-shaped curvature of the thoracolumbar spine. Vascular calcification, aorta. XR/XR lumbar spine 4V min IMPRESSION: Multilevel thoracolumbar spondylosis resulting in grade 1 retrolisthesis L1-2 and grade 1 anterolisthesis L4-5 without instability. Electronically signed by: Javier Umana MD 06/05/2024 01:43 PM RODNEY GAR
== END 2024-06-05 09:22 | disposition home or self-care (01) ==
LOC: HO.HOSX 09:21
PROVIDERS: PCP Internal Medicine; Referring Provider Nurse Practitioner Family; Visit Provider Physician Assistant
DX: M48.061 Spinal stenosis, lumbar region without neurogenic claudication (principal)
CPT/HCPCS: 72110; 99202

== ENCOUNTER 2024-06-05 09:21 | Outpatient (AMB) | payer MEDICARE, SELFPAY ==
--- NOTE | 2024-06-05 09:26 | HO.SPINEOV ---
Vital Signs 06/05/24 09:27 Height 5 ft 10 in Weight 182 lb BMI 26.1 Intake Visit Reasons: LBP Urgent referral Intake Note: Mr. Self is here today c/o Low back pain. Mobile Engineer Required: No Allergies aspirin [ASPIRIN] Allergy (Severe, Verified 06/05/24 09:28) G6PD DEFICIENCY Xatzrxp-VTX-EeE Reductase Inhibitor Allergy (Mild, Verified 06/05/24 09:28) Muscle Pain blue dye [BLUE DYE] Allergy (Unknown, Verified 06/05/24 09:28) G6PD Sulfa (Sulfonamide Antibiotics) [SULFA(SULFONAMIDE ANTIBIOTICS)] Allergy (Unknown, Verified 06/05/24 09:28) UNKNOWN BEANS. BAKED Allergy (Severe, Uncoded 02/03/23 13:23) BRE BEANS ( G6PD DEFICINCEY Physical Exam Vital Signs: BMI result Body Mass Index 26.1 Assessment & Plan Assessment & Plan (1) Lumbar spinal stenosis: Code(s): M48.061 - Spinal stenosis, lumbar region without neurogenic claudication Category: Medical Plan Dear Adele, Thank you for referring Mr Self to our office today. He is a very nice 74-year-old gentleman presents to the office today for evaluation of left leg radiculopathy that has been going on now for 2-3 years. He describes it as pain in the left side of his low back that radiates into his buttock, posterior thigh into his outer calf associated with tingling of the top of his foot. When he is sitting he is fine, but as soon as he stands up to walk he will start with the pain and then he will start limping and want to sit down. He does get some tingling and numbness in his foot at night if he lays on his right side. So far he has just been trying to deal with the pain. He has been taking Tylenol and Alleve when needed. He underwent injections at your office and these did give him some relief but not enough to make it go away. He has an MRI done here at [place] showing lateral recess stenosis amongst other degenerative changes and was sent for an evaluation. PMH: History of coronary disease, he had a stent done 2 years ago, he is followed by Dr. Nunez. 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 He developed some kind of pulmonary nodules after he had COVID back in 2020. Social hx: He does not smoke, drink use any recreational drugs Medications: Aspirin 81 mg, metoprolol, levothyroxine, vitamin D3, omeprazole, Tylenol, naproxen, Repatha Allergies: Please see the [email or web address] list Physical exam: Awake alert oriented no acute distress, able to stand up on his own, does walk with a slightly antalgic gait, strength normal, reflexes diminished at the left patella. Imaging review: Lumbar MRI shows degenerative spondylolisthesis grade 1 at L4-5, there is bilateral lateral recess narrowing, left greater than right. He has some disc degeneration at the L5-S1 as well. The upper lumbar levels look okay with no meaningful or significant degeneration or central stenosis. Impression: 74-year-old male presents with a left L5 radiculopathy which I believe to be coming from the left lateral recess stenosis at L4-5. The pain is fairly classic claudicating stenosis type pain. To this point he has tried numerous things including tincture of time, NSAIDs, Tylenol as well as injections. I am going to show his imaging to Dr. Bucio to see if he would be a good candidate for simple decompression at the left L4-5 level. We did briefly discuss this procedure in my office in the presence of his who is a physician. All pertinent risks and benefits were discussed. Typically success rate for the surgery is 90% if Dr. Bucio agrees that there is enough stenosis there to justify surgery. We also talked about the fact that there is a spondylolisthesis at L4-5 and I would like to get upright flexion-extension x-rays just to make sure were not missing an occult instability. If that is the case then obviously we have to have a different discussion. Also, I referred him to physical therapy because his insurance [employer] will not approve surgery unless they know he has undergone or least attempted therapy. I will see him back in 1 month. If he does end up having surgery, he would need to have cardiac clearance. Thank you for allowing us to care for your patient. The total time spent with this visit with this patient was 45 minutes reviewing history, physical exam, lumbar imaging review, and implementation of treatment plan or further diagnostic testing Shane Bucio MD,PhD [facility] Orders: Orders PT Evaluation and Treatment Today M48.061 - Spinal stenosis, lumbar region without neurogenic claudication XR lumbar spine 4V min Today M48.061 - Spinal stenosis, lumbar region without neurogenic claudication Coding Level of Care Code New Pt Level 4 (14377) Diagnoses Lumbar spinal stenosis M48.061
[2024-06-05 09:27] VITALS: BMI 26.1
--- OUTSIDE RECORDS SUMMARY | 2024-06-05 10:10 | XMS_ITS | Patient Health Record ---
Author Organization [facility] Address [address] [place] [address] Care Team Providers Care Hvac Project Manager Name Role Phone Eric MYRICK, Asma Primary Care Provider Esteban Hendricks [phone] REASON FOR REFERRAL No Information SOCIAL HISTORY Sex Assigned At : Social History Observation Description Sex Assigned At Unknown PLAN OF TREATMENT Next Appt Details Provider Name:Esteban Sheth , 09/05/2024 10:50:00 AM, [address], [address], [place], [address], Insurance Providers Payer Name Payer Address Payer Phone Subscriber Number Group Number Insured Name Patient Relationship to Insured Coverage Start Date Coverage End Date [facility] [address] [place] [address] [id number] IVANA WAGONER Self - patient is the insured
--- OUTSIDE RECORDS SUMMARY | 2024-06-05 10:10 | XMS_ITS ---
Author Organization [facility] Address [address] [place] [address] Care Team Providers Care Outside Collector Name Role Phone Eric MYRICK, Asma Primary Care Provider Esteban Hendricks Unavailable [phone] REASON FOR VISIT Patient presents today for a colon , egd Encounters Encounter Location Date Provider Diagnosis [facility] [address] [place] [address] 12/17/2022 Esteban Sheth PLAN OF TREATMENT Next Appt Details Provider Name:Esteban Sheth , 09/05/2024 10:50:00 AM, [address], [address], [place], [address],
--- OUTSIDE RECORDS SUMMARY | 2024-06-05 10:11 | XMS_ITS ---
Author Organization [facility] Address [address] [place] [address] Care Team Providers Care Foreign Exchange Student Coordinator Name Role Phone Eric MYRICK, Asma Primary Care Provider Esteban Hendricks Unavailable [phone] REASON FOR VISIT Pt no show Encounters Encounter Location Date Provider Diagnosis [facility] [address] [place] [address] 12/17/2022 Esteban Sheth PLAN OF TREATMENT Next Appt Details Provider Name:Esteban Sheth , 09/05/2024 10:50:00 AM, [address], [address], [place], [address],
== END 2024-06-05 10:23 | disposition home or self-care (01) ==
PROVIDERS: PCP Internal Medicine; Referring Provider Nurse Practitioner Family; Visit Provider Physician Assistant
DX: M48.061 Spinal stenosis, lumbar region without neurogenic claudication (principal)
CPT/HCPCS: 99204

== ENCOUNTER → 2024-06-05 10:26 | Outpatient (BNV) | payer MEDICARE, SELFPAY | PROVIDERS: PCP Internal Medicine; Referring Provider Nurse Practitioner Family; Visit Provider Radiology Diagnostic Radiology | DX: M48.061 Spinal stenosis, lumbar region without neurogenic claudication (principal) | CPT/HCPCS: 72110 ==

== ENCOUNTER 2024-06-06 14:28 | Outpatient (AMB) | payer MEDICARE, SELFPAY ==
--- NOTE | 2024-06-06 14:32 | A.OFFVIS_ITS ---
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 Tingling and burning in both legs. Bilateral pain but left leg pain patient states is 01/12. Accompanied by: Unknown Allergies aspirin [ASPIRIN] Allergy (Severe, Verified 06/06/24 14:35) G6PD DEFICIENCY Tuvqlcs-TOH-OlR Reductase Inhibitor Allergy (Mild, Verified 06/06/24 14:35) Muscle Pain blue dye [BLUE DYE] Allergy (Unknown, Verified 06/06/24 14:35) G6PD Sulfa (Sulfonamide Antibiotics) [SULFA(SULFONAMIDE ANTIBIOTICS)] Allergy (Unknown, Verified 06/06/24 14:35) UNKNOWN BEANS. 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 The pain, more severe on the left side, primarily occurs during walking and resolves with rest. Tingling sensations are reported in certain positions. The patient denies smoking and diabetes, which are relevant risk factors for vascular disease. Previous evaluations and MRI findings suggest spinal stenosis and possible vertebral shifting causing nerve root compression. Conservative treatment with physical therapy and spinal injections has been attempted with limited success. Potential surgical intervention is under consideration due to persistent symptoms. Of note patient has had x-rays. He has been following up with pain management and most recently has seen spine surgery. He now presents for vascular evaluation [facility] Medical History Severe obstructive sleep apnea Dyspnea on exertion Dysphagia Vitamin D deficiency Hypothyroidism Mild ascending aorta dilatation Pulmonary nodules Restrictive lung disease Chronic cough Hypertension Subclinical hypothyroidism Jadiel's disease Non-toxic multinodular goiter Surgical History Hx of thyroidectomy Hx of heart artery stent Hx of cholecystectomy Family History Father Hypertension Heart disease Diabetes Mother Hypertension Brother Myocardial infarction Social History Household Members: Spouse and Children Housing: House Alcohol intake: never Patient Tobacco Use Status: Never used Tobacco e-Cigarette/Vaping Use: Never Used service: No Current occupational status: retired Cognitive needs: No Hearing needs: No Vision needs: Yes Review of Systems Const All systems reviewed & are unremarkable except as noted in HPI and below Reports no additional complaints ENT Reports Normal hearing present Card Denies chest pain, Denies chest pain at rest, Denies chest pain with activity and Denies pedal edema Resp Denies cough GI Denies abdominal pain Musc Denies abnormal gait, Denies muscle cramps and Denies radiating pain into limb Skin/Breast Denies skin ulcer and Denies wounds Neuro Reports Normal hearing present and Denies abnormal gait Psych Reports no additional complaints Physical Exam Const General: cooperative, healthy appearing and comfortable Orientation/consciousness: oriented to person, oriented to place and oriented to time HEENT Head: Yes normal to inspection Neck Neck: Yes normal visual inspection Carotids: no bruits Chest Chest palpation & inspection: normal inspection of the chest Resp Effort & Inspection: normal respiratory effort and able to speak in complete sentences Auscultation: clear to auscultation bilaterally, no crackles, no rales, no rhonchi and no wheezes Cardio Other: Palpable bilateral dorsalis pedis and posterior tibial pulse Rate: regular rate Rhythm: regular rhythm Heart sounds: S1 normal heart sound present and S2 normal heart sound present Bruits: no carotid bruits Peripheral pulses: Peripheral pulses 2+ throughout GI Inspection: Yes normal to inspection Skin Wounds: no wounds Hair: normal Neuro General: oriented to person, oriented to place and oriented to time Cranial nerves: Yes CN's II-XII intact bilaterally and Yes Normal hearing present Cognition (Neuro): normal cognition Motor exam (neuro): 5/5 motor strength present throughout Extrem Other: venous exam: No significant superficial varicosities or spider telangiectasias, minimal edema General: No clubbing, No cyanosis and No edema Psych Appearance: grossly normal Mental Status: mental status grossly normal Speech and movement: Normal speech and movement present Assessment & Plan Assessment & Plan (1) Lumbar spinal stenosis: Code(s): M48.061 - Spinal stenosis, lumbar region without neurogenic claudication Category: Medical Qualifiers: Neurogenic claudication status: with neurogenic claudication Qualified Code(s): M48.062 - Spinal stenosis, lumbar region with neurogenic claudication Plan: In short patient does not any evidence of peripheral vascular disease. He has minimal risk factors and does have palpable pulses at the current time. I did spend an extensive amount of time explaining the pathophysiology of peripheral vascular disease and what the signs and symptoms of that would be. It does not match his current symptoms. It does appear to be more neurogenic in nature. I did encourage him for continued follow-up with spine surgery and to follow through with his physical therapy. He will follow up with us on an as-needed basis. Thank you for allowing us to participate in his care. If there are any questions or concerns please do not hesitate to contact us. Plan Patient was informed and verbally consented to the use of an ambient scribe for clinic note documentation during this visit. Patient Instructions: - Continue with physical therapy sessions as advised. - Rest and limit walking to avoid exacerbating symptoms. - Monitor for any changes in symptoms and report to the office. - Avoid tight socks and clothing to manage Raynaud's symptoms. - Follow up as advised for further evaluation on the necessity of surgical intervention. Coding Level of Care Code New Pt Level 4 (56983) Diagnoses Spinal stenosis of lumbar region with neurogenic claudication M48.062 Neurogenic claudication status: with neurogenic claudication
--- OUTSIDE RECORDS SUMMARY | 2024-06-06 18:18 | XMS_ITS | Continuity of Care Document ---
Author Organization [facility] Address [address] [place] [address] Phone Care Team Providers Care Security Director Name Role Phone Bin De Jesus PT Unavailable Unavailable Procedures Procedure Date Doc neg elder mal no plan PT Evaluation High Complexity Therapeutic Activities Neuromuscular Re-Ed Therapeutic Exercise Advance Directives Directive Yes / No Effective Date File Name No Information Encounters Encounter Description Practice Location Reason(s) For Visit Diagnoses Date Provider Providers Copied on Encounter [facility], [address], [place], [place], [id number], [place] tel:[phone] [facility] No Information Liza Steward. . Referring [...]
== END 2024-06-06 14:52 | disposition home or self-care (01) ==
PROVIDERS: PCP Internal Medicine; Visit Provider Surgery Vascular Surgery
DX: M48.062 Spinal stenosis, lumbar region with neurogenic claudication (principal)
CPT/HCPCS: 99204

== ENCOUNTER → 2024-06-06 14:28 | Outpatient (BNVA) | payer MEDICARE, SELFPAY | PROVIDERS: PCP Internal Medicine; Visit Provider Surgery Vascular Surgery | DX: M48.062 Spinal stenosis, lumbar region with neurogenic claudication (principal) | CPT/HCPCS: 99202 ==

== ENCOUNTER 2024-06-09 09:27 | Outpatient (AMB) | payer MEDICARE, MEDICAID, SELFPAY ==
[2024-06-09 09:29] VITALS: BP 130/66; PULSE 70; O2SAT 97; BMI 26.5
--- NOTE | 2024-06-09 09:29 | MHC.PC.OV ---
Vital Signs 06/09/24 09:29 Height 5 ft 10 in Weight 184 lb 8 oz BMI 26.5 BP 130/66 Blood Pressure Location Rt brachial Position Sitting Pulse 70 Pulse Source Pulse Oximeter Pulse Oximetry (%) 97 Oxygen Delivery Method Room Air Intake Visit Reasons: High blood/Thyroid Allergies aspirin [ASPIRIN] Allergy (Severe, Verified 06/09/24 09:30) G6PD DEFICIENCY Cpvokxs-JVI-LyJ Reductase Inhibitor Allergy (Mild, Verified 06/09/24 09:30) Muscle Pain blue dye [BLUE DYE] Allergy (Unknown, Verified 06/09/24 09:30) G6PD Sulfa (Sulfonamide Antibiotics) [SULFA(SULFONAMIDE ANTIBIOTICS)] Allergy (Unknown, Verified 06/09/24 09:30) UNKNOWN BEANS. BAKED Allergy (Severe, Uncoded 02/03/23 13:23) BRE BEANS ( G6PD DEFICINCEY Medication List - Last Reconciled 06/09/24 by Irma Reyes MD acetaminophen 1,000 mg PO Q6H PRN aspirin 81 mg PO DAILY 90 days [Cane As directed] cholecalciferol (vitamin D3) 50 mcg PO ONCE evolocumab (Repatha SureClick) 140 mg subcut Q2W levothyroxine 75 mcg PO DAILY metoprolol tartrate 12.5 mg (1/2 x 25 mg) PO BID omeprazole 20 mg PO BID 90 days Tobacco use date assessed: 06/09/24 Fall risk assessment: No Falls in past year Last assessed Fall Risk: 06/09/24 Dental Screening Dental Screen Date: 06/09/24 Did you have a dental visit in the last 12 months?: Yes Did you have a dental problem in the last 6 months where you did not have access to dental care?: No Was dental information given to patient?: Patient has dentist HPI High blood/Thyroid HPI Details History - The patient is a 74-year-old male presenting with worsening severe pain and spinal issues. Currently in treatment under pain management - Hyperlipidemia managed by Cardiology history of coronary artery stent placement and aortic aneurysm - Manages hypertension with Metoprolol. - Self-reports asymptomatic GERD for which Omeprazole is taken as needed. - Awaiting Vitamin D levels while continuing supplementation. - hypothyroidism: Continue levothyroxine 75 mcg Patient Instructions Continue medications, Labs to be done before next visit Continue management through specialist back pain and other medical problems Review of Systems - General: No fever no chills - Neurological: No headaches no dizziness - Ear nose throat: No sore throat no hearing difficulty no ear pain - Cardiovascular: No syncope, no chest pain, no palpitations - Gastrointestinal: No nausea vomiting or diarrhea - Endocrine: No polyuria polydipsia no heat intolerance - Genitourinary: No dysuria , no blood in urine Physical Exam - General: No acute distress - HEENT: No acute findings - Neck: Supple - Respiratory system: Able to talk in full sentences, no audible wheeze - cardiovascular: S1-S2 - Gastrointestinal: No pain - Extremities: No new findings - 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: Alert awake oriented x3 motor sensory intact - Skin: Normal turgor PFSH Medical History Severe obstructive sleep apnea Dyspnea on exertion Dysphagia Vitamin D deficiency Hypothyroidism Mild ascending aorta dilatation Pulmonary nodules Restrictive lung disease Chronic cough Hypertension Subclinical hypothyroidism Jadiel's disease Non-toxic multinodular goiter Surgical History Hx of thyroidectomy Hx of heart artery stent Hx of cholecystectomy Family History Father Hypertension Heart disease Diabetes Mother Hypertension Brother Myocardial infarction Social History Household Members: Spouse and Children Housing: House Alcohol intake: never Patient Tobacco Use Status: Never used Tobacco e-Cigarette/Vaping Use: Never Used service: No Current occupational status: retired Cognitive needs: No Hearing needs: No Vision needs: Yes Questionnaire PHQ-9 Over the last 2 weeks, how often have you been bothered by any of the following problems? 21289 - PHQ-9 Billing: Patient declined-do not bill Source: Developed by Drs. Esteban Kwon, Rossy Hernandez, Samy Peters and colleagues, with an educational sahil from [employer]. Thrive Questionnaire Date Thrive assessed: 06/09/24 I am a: Patient What is your living situation today?: I have a steady place to live Within the past 12 months, did the food you bought not last and you didn't have the money to get more?: Never true Within the past 12 months, did you worry whether your food would run out before you got money to buy more?: Never true Do you have trouble paying for medicines?: No Do you have trouble getting transportation to medical appointments?: No Do you have trouble paying your heating and electricity bill?: No Do you have trouble taking care of your child, family member or friend?: No Do you have trouble with day-to-day activities such as bathing, preparing meals, shopping, managing finances, etc.?: No Are you currently unemployed and looking for a job?: No Are you interested in more education?: No Please select the resources that you would like help with: None Currently or been in a relationship where the following occur: No concerns reported THRIVE Score: 0 AUDIT C Alcohol Use Questionnaire (AUDIT-C) 1. How often do you have a drink containing alcohol?: Never 3. How often do you have six or more drinks on one occasion?: Never Total Score: 0 Score Reviewed/Action Taken: Yes AL-7 AMB Questionnaire AL-7 Date AL - 7 assessed: 06/09/24 Feeling nervous, anxious, or on edge: 0 = Not at all Not being able to stop or control worryin = Not at all Worrying too much about different things: 0 = Not at all Trouble relaxin = Not at all Being so restless that it is hard to sit still: 0 = Not at all Becoming easily annoyed or irritable: 0 = Not at all Feeling afraid as if something awful might happen: 0 = Not at all Total AL-7 score (0-4 normal; 5-9 mild; 10-14 moderate; 15-21 severe): 0 Source: Developed by Drs. Esteban Kwon, Rossy Hernandez, Samy Peters and colleagues, with an educational sahil from [employer]. AL-7 Assessment Billing AL-7 Assessment Tool: AL-7 Assessment 91116 Physical exam (Primary Care) Vital Signs: Last Vital Signs Pulse 70 06/09/24 09:29 BP 130/66 06/09/24 09:29 Pulse Ox 97 06/09/24 09:29 Oxygen Delivery Method Room Air 06/09/24 09:29 BMI result Body Mass Index 26.5 Tobacco/Smoking Status: Tobacco use Status Tobacco use date assessed 06/09/24 06/09/24 09:41 Patient Tobacco Use Status Never used Tobacco 06/09/24 09:41 e-Cigarette/Vaping Use Never Used 06/09/24 09:41 Thrive Assessment: Date of Thrive Assessment Date Thrive assessed 06/09/24 06/09/24 09:41 Currently or been in a relationship where the following occur: No concerns reported Coding Level of Care Code Est Pt Level 4 (27174) Diagnoses Essential hypertension I10 Unstable angina I20.0 Hearing loss, unspecified hearing loss type, unspecified laterality H91.90 Hearing loss type: unspecified Laterality: unspecified laterality Other specified hypothyroidism E03.8 Vitamin D deficiency E55.9 G6PD deficiency anemia D55.0 Gastroesophageal reflux disease without esophagitis K21.9 Esophagitis presence: without esophagitis Risk for falls Z91.81 Hypertension, essential I10 Chronic GERD K21.9 Ascending aortic aneurysm, unspecified whether ruptured I71.21 Presence of rupture: unspecified whether ruptured Status post coronary artery stent placement Z95.5 Additional Codes AL-7 Assessment Billing - AL-7 Assessment Tool: AL-7 Assessment 71365 ([id number]) Assessment & Plan Assessment & Plan (1) Essential hypertension: Code(s): I10 - Essential (primary) hypertension Category: Medical (2) Unstable angina: Code(s): I20.0 - Unstable angina Category: Medical (3) Impaired hearing: Code(s): H91.90 - Unspecified hearing loss, unspecified ear Category: Medical Qualifiers: Hearing loss type: unspecified Laterality: unspecified laterality Qualified Code(s): H91.90 - Unspecified hearing loss, unspecified ear (4) Other specified hypothyroidism: Code(s): E03.8 - Other specified hypothyroidism Category: Medical (5) Vitamin D deficiency: Code(s): E55.9 - Vitamin D deficiency, unspecified Category: Medical (6) G6PD deficiency anemia: Code(s): D55.0 - Anemia due to egdjsrg-3-sgxmjnhvd dehydrogenase [G6PD] deficiency Category: Medical (7) GERD (gastroesophageal reflux disease): Code(s): K21.9 - Gastro-esophageal reflux disease without esophagitis Category: Medical Qualifiers: Esophagitis presence: without esophagitis Qualified Code(s): K21.9 - Gastro-esophageal reflux disease without esophagitis (8) Risk for falls: Code(s): Z91.81 - History of falling Category: Medical (9) Hypertension, essential: Code(s): I10 - Essential (primary) hypertension Category: Medical (10) Chronic GERD: Code(s): K21.9 - Gastro-esophageal reflux disease without esophagitis Category: Medical (11) Ascending aortic aneurysm: Code(s): I71.2 - Thoracic aortic aneurysm, without rupture Category: Medical Qualifiers: Presence of rupture: unspecified whether ruptured Qualified Code(s): I71.21 - Aneurysm of the ascending aorta, without rupture (12) Status post coronary artery stent placement: Code(s): Z95.5 - Presence of coronary angioplasty implant and graft Category: Surgical Plan History - The patient is a 74-year-old male presenting with worsening severe pain and spinal issues. Currently in treatment under pain management - Hyperlipidemia managed by Cardiology, have history of coronary artery stent placement and aortic aneurysm - Manages hypertension with Metoprolol. - Self-reports asymptomatic GERD for which Omeprazole is taken as needed. - Awaiting Vitamin D levels while continuing supplementation. - hypothyroidism: Continue levothyroxine 75 mcg Patient Instructions Continue medications, Labs to be done before next visit Continue management through specialist back pain and other medical problems Orders: Orders Lipid Panel Today D55.0 - Anemia due to iquusid-6-fazrvlmxl dehydrogenase [G6PD] deficiency, E03.8 - Other specified hypothyroidism, E55.9 - Vitamin D deficiency, unspecified, H91.90 - Unspecified hearing loss, unspecified ear, I10 - Essential (primary) hypertension, I20.0 - Unstable angina, I71.2 - Thoracic aortic aneurysm, without rupture, K21.9 - Gastro-esophageal reflux disease without esophagitis, Z91.81 - History of falling, Z95.5 - Presence of coronary angioplasty implant and graft TSH reflex Free T4 Today D55.0 - Anemia due to pwtapcc-7-tefyjrrgn dehydrogenase [G6PD] deficiency, E03.8 - Other specified hypothyroidism, E55.9 - Vitamin D deficiency, unspecified, H91.90 - Unspecified hearing loss, unspecified ear, I10 - Essential (primary) hypertension, I20.0 - Unstable angina, I71.2 - Thoracic aortic aneurysm, without rupture, K21.9 - Gastro-esophageal reflux disease without esophagitis, Z91.81 - History of falling, Z95.5 - Presence of coronary angioplasty implant and graft Complete Blood Count Auto Diff Today D55.0 - Anemia due to swpesqz-4-zncavcare dehydrogenase [G6PD] deficiency, E03.8 - Other specified hypothyroidism, E55.9 - Vitamin D deficiency, unspecified, H91.90 - Unspecified hearing loss, unspecified ear, I10 - Essential (primary) hypertension, I20.0 - Unstable angina, I71.2 - Thoracic aortic aneurysm, without rupture, K21.9 - Gastro-esophageal reflux disease without esophagitis, Z91.81 - History of falling, Z95.5 - Presence of coronary angioplasty implant and graft Comprehensive [place]. Panel Fast Today D55.0 - Anemia due to bvwjfza-4-ziwahpott dehydrogenase [G6PD] deficiency, E03.8 - Other specified hypothyroidism, E55.9 - Vitamin D deficiency, unspecified, H91.90 - Unspecified hearing loss, unspecified ear, I10 - Essential (primary) hypertension, I20.0 - Unstable angina, I71.2 - Thoracic aortic aneurysm, without rupture, K21.9 - Gastro-esophageal reflux disease without esophagitis, Z91.81 - History of falling, Z95.5 - Presence of coronary angioplasty implant and graft Vitamin D 25-OH (D2 and D3) Today D55.0 - Anemia due to yjjarcr-9-yiflczqbm dehydrogenase [G6PD] deficiency, E03.8 - Other specified hypothyroidism, E55.9 - Vitamin D deficiency, unspecified, H91.90 - Unspecified hearing loss, unspecified ear, I10 - Essential (primary) hypertension, I20.0 - Unstable angina, I71.2 - Thoracic aortic aneurysm, without rupture, K21.9 - Gastro-esophageal reflux disease without esophagitis, Z91.81 - History of falling, Z95.5 - Presence of coronary angioplasty implant and graft Vitamin B12 Today D55.0 - Anemia due to ocaqovw-8-hqcpfifmi dehydrogenase [G6PD] deficiency, E03.8 - Other specified hypothyroidism, E55.9 - Vitamin D deficiency, unspecified, H91.90 - Unspecified hearing loss, unspecified ear, I10 - Essential (primary) hypertension, I20.0 - Unstable angina, I71.2 - Thoracic aortic aneurysm, without rupture, K21.9 - Gastro-esophageal reflux disease without esophagitis, Z91.81 - History of falling, Z95.5 - Presence of coronary angioplasty implant and graft
--- OUTSIDE RECORDS SUMMARY | 2024-06-09 10:11 | XMS_ITS | Patient Health Record ---
Author Organization [facility] Address [address] [place] [address] Care Team Providers Care Sewer System Supervisor Name Role Phone Eric MYRICK, Asma Primary Care Provider Esteban Hendricks [phone] Reason For Referral No Information Plan Of Treatment Next Appt Details Provider Name:Esteban Sheth , 09/05/2024 10:50:00 AM, [address] [facility], [address], [place], [address], Insurance Providers Payer Name Payer Address Payer Phone Subscriber Number Group Number Insured Name Patient Relationship to Insured Coverage Start Date Coverage End Date [facility] [address] [place] [address] [id number] IVANA WAGONER Self - patient is the insured
--- OUTSIDE RECORDS SUMMARY | 2024-06-09 10:12 | XMS_ITS ---
Author Organization [facility] Address [address] [place] [address] Care Team Providers Care Bird Sitter Name Role Phone Eric MYRICK, Irma Primary Care Provider Esteban Hendricks [phone] REASON FOR VISIT Patient presents today for a colon , egd Encounters Encounter Location Date Provider Diagnosis [facility] [address] [facility] [place] [phone] 12/17/2022 Esteban Sheth Plan Of Treatment Next Appt Details Provider Name:Esteban Sheth , 09/05/2024 10:50:00 AM, [address], [address], [place], [address], Progress Notes * NEGRITA WAGONEROB:1950 ([age] yo M)Acc No.[id number]:12/17/2022 Progress Notes Patient:?IVANA WAGONER Provider:?Esteban Sheth MD :1950???Age:72 Y???Sex:Male Lawrence e:12/17/2022 [facility] Pcp:Irma Reyes MD Subjective: * Chief Complaints: * ???1. Patient presents today for a colon , egd. * Medical History:? Objective: * Vitals:? Assessment: Plan: * Treatment: * * The named appointment provid er may or may not be the originator of this progress note, and it is not deemed complete until electronically signed by the appointment provider. Sign off status: Pending * Provider:?Esteban Sheth MD Date:? 023 Generated for John elizabeth/Mita/Esther on:?06/09/2024 10:11 AM EST
--- OUTSIDE RECORDS SUMMARY | 2024-06-09 10:12 | XMS_ITS ---
Author Organization [facility] Address [address] [place] [phone] Care Team Providers Care Plant Cytologist Name Role Phone Eric MYRICK, Asma Primary Care Provider Esteban Hendricks [phone] REASON FOR VISIT Pt no show Encounters Encounter Location Date Provider Diagnosis [facility] [address] [facility] [address] [address] [place] [address] 12/17/2022 Esteban Sheth Plan Of Treatment Next Appt Details Provider Name:Esteban Sheth , 09/05/2024 10:50:00 AM, [address], [address], [place], [address], Progress Notes * NEGRITA WAGONEROB:1950 ([age] yo M)Acc No.[id number]:12/17/2022 Patient:?IVANA WAGONER :1950???Age:72 Y???Sex:Male [place]: [place], [address] * true * Date:? Generated for John elizabeth/Mita/eTransmitting on:?06/09/2024 10:11 AM EST
== END 2024-06-09 10:01 | disposition home or self-care (01) ==
PROVIDERS: PCP Internal Medicine; Visit Provider Internal Medicine
DX: I10 Essential (primary) hypertension (principal); I20.0 Unstable angina; D55.0 Anemia due to glucose-6-phosphate dehydrogenase [G6PD] deficiency; I71.21 Aneurysm of the ascending aorta, without rupture; E03.8 Other specified hypothyroidism; E55.9 Vitamin D deficiency, unspecified; K21.9 Gastro-esophageal reflux disease without esophagitis; Z91.81 History of falling; Z95.5 Presence of coronary angioplasty implant and graft

== ENCOUNTER → 2024-06-09 09:27 | Outpatient (BNVA) | payer MEDICARE, SELFPAY | PROVIDERS: PCP Internal Medicine; Visit Provider Internal Medicine | DX: I10 Essential (primary) hypertension (principal); I20.0 Unstable angina; E03.8 Other specified hypothyroidism; E55.9 Vitamin D deficiency, unspecified; D55.0 Anemia due to glucose-6-phosphate dehydrogenase [G6PD] deficiency; K21.9 Gastro-esophageal reflux disease without esophagitis; I72.1 Aneurysm of artery of upper extremity; Z95.5 Presence of coronary angioplasty implant and graft; Z91.81 History of falling | CPT/HCPCS: 96127; 99212 ==

== ENCOUNTER 2024-07-12 09:41 | Inpatient (IN) | payer MEDICARE, MEDICAID, SELFPAY ==
[2024-07-12] VITALS (8 sets, daily range): BP systolic 131–158; BP diastolic 75–84; PULSE 72–96; RESP 16–19; TEMP 36.4–37.1; O2SAT 95–98; BMI 27.3
--- NOTE | ~2024-07-12 | XR_ITS ---
EXAMINATION: XR CHEST 1 VIEW HISTORY: chest pain COMPARISON: Comparison is made with the prior examination dated 10/30/2021. FINDINGS: A single AP portable view of the chest performed at 10:41 AM is submitted. The lungs are expanded and clear. There is no pleural effusion, pneumothorax, or pulmonary vascular congestion. The heart is normal in size. There is degenerative disc disease of the spine. XR/XR chest 1V IMPRESSION: No acute cardiopulmonary abnormality. Electronically signed by: Esteban Anne MD 07/12/2024 10:49 AM EDT
--- NOTE | 2024-07-12 09:48 | ECG_ITS ---
Test Reason : chest pain Blood Pressure : */* mmHG Vent. Rate : 86 BPM Atrial Rate : 86 BPM P-R Int : 200 ms QRS Dur : 82 ms QT Int : 356 ms P-R-T Axes : 42 -22 18 degrees QTcB Int : 426 ms Normal sinus rhythm Possible Anterior infarct , age undetermined Abnormal ECG When compared with ECG of 09-Jul-2023 12:10, Vent. rate has increased by 34 bpm Referred By: Generic ED Physician Electronically Signed By: Naga France
[2024-07-12 10:29] LABS: MANUAL DIFF FLAG NO
--- NOTE | 2024-07-12 10:32 | ED_ITS ---
HPI - Chest Pain General Chief Complaint: Chest Pain Stated Complaint: chest pains Time Seen by Provider: 07/12/24 10:17 Source: patient Mode of arrival: ambulatory Limitations: no limitations History of Present Illness HPI narrative: This is 74 years old male with history of CAD status post of drug eluting stenting of the LAD in 2021 presented to the emergency department complaining of chest pain which started around 08:00 the pain and suicide of the right now. He is ambulatory to the emergency department. The pain was not exertional there was no diaphoresis no radiation MD complaint: chest pain Pertinent past history: coronary artery disease Onset (ago): hour(s) (2) Timing of current episode: episodic, constant and now resolved Prior episodes: Yes Onset: during rest Pain location: left chest Pain radiation: none Severity: mild Relieving factors: nothing Exacerbating factors: nothing Risk Factors Coronary artery disease risk factors: hypertension Related Data Home Medications ?Medication ?Instructions ?Recorded ?Confirmed acetaminophen 500 mg tablet 1,000 mg PO Q6H PRN Pain 10/30/21 06/09/24 Previous Rx's ?Medication ?Instructions ?Recorded Cane #1 ea 10/29/20 aspirin 81 mg tablet,delayed 81 mg PO DAILY 90 days #90 tabs 09/02/22 release cholecalciferol (vitamin D3) 50 50 mcg PO ONCE #90 caps 09/02/22 mcg (2,000 unit) capsule metoprolol tartrate 25 mg tablet 12.5 mg (1/2 x 25 mg) PO BID #90 09/03/23 tabs omeprazole 20 mg capsule,delayed 20 mg PO BID 90 days #180 caps 04/14/24 release evolocumab 140 mg/mL subcutaneous 140 mg subcut Q2W #2 mL 05/31/24 pen injector (Repmarine Riveraick) levothyroxine 75 mcg tablet 75 mcg PO DAILY #90 tabs 06/28/24 Allergies Allergy/AdvReac Type Severity Reaction Status Date / Time aspirin [ASPIRIN] Allergy Severe G6PD Verified 07/12/24 09:57 DEFICIENCY Skijamb-XXE-YiN Reductase Allergy Mild Muscle Pain Verified 07/12/24 09:57 Inhibitor blue dye [BLUE DYE] Allergy Unknown G6PD Verified 07/12/24 09:57 Sulfa (Sulfonamide Allergy Unknown UNKNOWN Verified 07/12/24 09:57 Antibiotics) [SULFA(SULFONAMIDE ANTIBIOTICS)] BEANS. BAKED Allergy Severe BRE BEANS Uncoded 02/03/23 13:23 ( G6PD DEFICINCEY Review of Systems 2 Constitutional: Constitutional: Reports no additional constitutional complaints Cardiovascular: Cardiovascular: Reports chest pain PMFSH Past Medical History Attestation statement: The following information was validated with the patient. Medical History Severe obstructive sleep apnea Dyspnea on exertion Dysphagia Vitamin D deficiency Hypothyroidism Mild ascending aorta dilatation Pulmonary nodules Restrictive lung disease Chronic cough Hypertension Subclinical hypothyroidism Jadiel's disease Non-toxic multinodular goiter Surgical History Hx of thyroidectomy Hx of heart artery stent Hx of cholecystectomy Family History Family History Father Hypertension Heart disease Diabetes Mother Hypertension Brother Myocardial infarction Social History Social History Household Members: Spouse and Children Housing: House Alcohol intake: never Patient Tobacco Use Status: Never used Tobacco Smoked in Last 30 Days: No e-Cigarette/Vaping Use: Never Used Use of substances other than those prescribed or required for medical reasons: No Advance Directives: No Advance Directives Information Provided: Yes service: No Current occupational status: retired Cognitive needs: No Hearing needs: No Vision needs: Yes Physical Exam 2 Vital Signs: Vital Signs: Last Vital Signs Temp 97.8 F 07/12/24 12:40 Pulse 81 07/12/24 12:40 Resp 18 07/12/24 12:40 BP 151/84 H 07/12/24 12:40 Pulse Ox 98 07/12/24 12:40 O2 Del Method Room Air 07/12/24 12:40 BMI result Body Mass Index 27.3 No acute distress looks well Const: General: cooperative Orientation/consciousness: patient oriented x3 HEENT: Head: Yes normal to inspection General nose exam: Normal external nose present Face and sinus: Yes normal facial exam Mouth: Normal oral and palatal mucosa present Throat: Yes posterior oropharynx normal Neck: Neck: Yes normal visual inspection Chest: Chest palpation & inspection: normal inspection of the chest Resp: Effort & Inspection: normal respiratory effort Cardio: Jugular venous distension: no JVD Rate: regular rate Rhythm: r egular rhythm GI: Inspection: Yes normal to inspection Percussion: Yes normal to percussion Skin: General skin exam: no rashes or lesions noted Neuro: General: patient oriented x3 Course Reevaluation(s) Reevaluation #1: Pocus cardiac done good wall motion, no pericardial effusion Time: 10:39 Reevaluation #2: I consulted Cardiology Dr. France he recommend admission on IV heparin, he is planning to cath the patient given the history of LAD stent Time: 13:30 Medical Decision Making Medical Decision Making [facility] Narrative: Patient is here with chest pain history of CAD lad stent we will obtain EKG Highsensitive troponin Differential Diagnosis Differential Diagnoses: The differential diagnosis associated with the presentation includes Admission/Observation Consideration of admission/observation: Escalation of care including admission/observation considered Consult Healthcare Provider Management of the patient was discussed with: [employer] Dr France Lab Data [facility] Lab Attestation statement: I reviewed the patient's lab results. 07/12/24 12:58 07/12/24 10:24 Labs: Lab Results 07/12/24 07/12/24 07/12/24 Range/Units 10:24 10:25 12:23 WBC 10.7 (4.8-10.8) X10*3/uL RBC 4.56 L (4.60-5.80) X10*6/uL Hgb 12.0 L (14.0-18.0) g/dl Hct 39.2 L (42.0-52.0) % MCV 86.0 (80.0-98.0) fL MCH 26.3 L (27.0-33.0) pg MCHC 30.6 L (31.0-36.0) g/dl RDW 13.2 (11.0-16.0) % Plt Count 287 (160-400) X10*3/uL MPV 11.0 (9.4-12.4) fL Immature Gran % (Auto) 0.5 H (0.0-0.4) % Neut % (Auto) 61.5 (45-73) % Lymph % (Auto) 28.4 (20-40) % [place] % (Auto) 6.6 (2-11) % Eos % (Auto) 2.3 (0-4) % Baso % (Auto) 0.7 (0-2) % Lymph # (Auto) 3.1 (1.2-4.9) X10*3/uL [place] # (Auto) 0.7 (0.1-1.2) X10*3/uL Eos # (Auto) 0.3 (0.0-0.4) X10*3/uL Baso # (Auto) 0.1 (0.0-0.2) X10*3/uL Abs Immat Gran (auto) 0.05 H (0.00-0.03) X10*3/uL Absolute Neuts (auto) 6.6 (2.0-8.3) x10*3/uL Absolute Nucleated RBC 0.000 (0.0-0.012) X10*3/uL Nucleated RBC % (auto) 0.0 (0.0-0.2) /100WBC PT (10.9-12.4) SEC INR (0.9-1.1) aPTT Heparin Protocol (53-77.9) SEC Hold Blue Top SEE NOTE Sodium 138 (135-145) mmol/L Potassium 4.1 (3.3-5.1) mmol/L Chloride 108 (96-108) mmol/L Carbon Dioxide 25 (22-29) mmol/L Anion Gap 9 L (12-20) BUN 14 (9-16) mg/dL Creatinine 0.92 (0.5-1.4) mg/dL Estim Creat Clear Calc 68.1 Estimated GFR > 60 Random Glucose 145 H (60-115) mg/dL Calcium 9.0 (8.4-10.2) mg/dL Magnesium 2.0 (1.6-2.6) mg/dL Total Bilirubin 0.4 (0.0-1.0) mg/dL AST 31 (5-37) U/L ALT 19 (0-40) U/L Alkaline Phosphatase 98 (39-117) U/L Troponin I High Sens < 2.7 3.9 (<3.5-35.0) ng/L B-Natriuretic Peptide 17 (<100) pg/mL Total Protein 6.7 (6.5-8.0) g/dL Albumin 3.7 (3.5-5.0) g/dL 07/12/24 Range/Units 12:58 WBC 12.1 H (4.8-10.8) X10*3/uL RBC 4.57 L (4.60-5.80) X10*6/uL Hgb 12.0 L (14.0-18.0) g/dl Hct 39.1 L (42.0-52.0) % MCV 85.6 (80.0-98.0) fL MCH 26.3 L (27.0-33.0) pg MCHC 30.7 L (31.0-36.0) g/dl RDW 13.2 (11.0-16.0) % Plt Count 293 (160-400) X10*3/uL MPV 10.0 (9.4-12.4) fL Immature Gran % (Auto) (0.0-0.4) % Neut % (Auto) (45-73) % Lymph % (Auto) (20-40) % [place] % (Auto) (2-11) % Eos % (Auto) (0-4) % Baso % (Auto) (0-2) % Lymph # (Auto) (1.2-4.9) X10*3/uL [place] # (Auto) (0.1-1.2) X10*3/uL Eos # (Auto) (0.0-0.4) X10*3/uL Baso # (Auto) (0.0-0.2) X10*3/uL Abs Immat Gran (auto) (0.00-0.03) X10*3/uL Absolute Neuts (auto) (2.0-8.3) x10*3/uL Absolute Nucleated RBC 0.000 (0.0-0.012) X10*3/uL Nucleated RBC % (auto) 0.0 (0.0-0.2) /100WBC PT 11.8 (10.9-12.4) SEC INR 1.0 (0.9-1.1) aPTT Heparin Protocol 33.5 L (53-77.9) SEC Hold Blue Top Sodium (135-145) mmol/L Potassium (3.3-5.1) mmol/L Chloride (96-108) mmol/L Carbon Dioxide (22-29) mmol/L Anion Gap (12-20) BUN (9-16) mg/dL Creatinine (0.5-1.4) mg/dL Estim Creat Clear Calc Estimated GFR Random Glucose (60-115) mg/dL Calcium (8.4-10.2) mg/dL Magnesium (1.6-2.6) mg/dL Total Bilirubin (0.0-1.0) mg/dL AST (5-37) U/L ALT (0-40) U/L Alkaline Phosphatase (39-117) U/L Troponin I High Sens (<3.5-35.0) ng/L B-Natriuretic Peptide (<100) pg/mL Total Protein (6.5-8.0) g/dL Albumin (3.5-5.0) g/dL Independent Interpretation I performed an independent interpretation of an: EKG Interpretation: Normal sinus rhythm rate [address]-T changes this is a normal EKG Critical Care Time Critical Care Time Critical Care Time: Yes Total Critical Care Time: 60 Attestation: IV heparin tachycardic the patient consulting the cardiology Discharge Plan Discharge Clinical Impression: ACS (acute coronary syndrome) Patient Disposition: Admitted As Inpatient Print Language: Other
[2024-07-12 10:42] LABS: Basophils Absolute Auto 0.1 X10*3/uL (0.0-0.2); Basophils Percent Auto 0.7 % (0-2); Eosinophils Absolute Auto 0.3 X10*3/uL (0.0-0.4); Eosinophils Percent Auto 2.3 % (0-4); Hematocrit 39.2 % (42.0-52.0); Imm Gran Abs Auto 0.05 X10*3/uL (0.00-0.03); Imm Gran Pct Auto 0.5 % (0.0-0.4); Lymphocytes Absolute Auto 3.1 X10*3/uL (1.2-4.9); Lymphocytes Percent Auto 28.4 % (20-40); Mean Corpuscular HGB Conc 30.6 g/dl (31.0-36.0); Mean Corpuscular Hemoglobin 26.3 pg (27.0-33.0); Monocytes Absolute Auto 0.7 X10*3/uL (0.1-1.2); Monocytes Percent Auto 6.6 % (2-11); Neutrophils Absolute Auto 6.6 x10*3/uL (2.0-8.3); Neutrophils Percent Auto 61.5 % (45-73); Platelet Count 287 X10*3/uL (160-400); Red Blood Count 4.56 X10*6/uL (4.60-5.80); Red Cell Distribution Width 13.2 % (11.0-16.0); White Blood Count 10.7 X10*3/uL (4.8-10.8)
[2024-07-12 11:00] LABS: Alanine Aminotransferase 19 U/L (0-40); Albumin Level 3.7 g/dL (3.5-5.0); Alkaline Phosphatase 98 U/L (39-117); Anion Gap 9 (12-20); Aspartate Amino Transferase 31 U/L (5-37); B Type Natriuretic Peptide 17 pg/mL (<100); Bilirubin Total 0.4 mg/dL (0.0-1.0); Blood Urea Nitrogen 14 mg/dL (9-16); Carbon Dioxide 25 mmol/L (22-29); Chloride 108 mmol/L (96-108); Creatinine Clr Calc Pharmacy 68.1; Estimated Glomerular Filt Rate > 60; Glucose Random 145 mg/dL (60-115); Potassium 4.1 mmol/L (3.3-5.1); Sodium 138 mmol/L (135-145); Total Protein 6.7 g/dL (6.5-8.0)
--- NOTE | 2024-07-12 11:05 | PC.NURSE ---
Patient alert and oriented. assurance associate maintained and NSR noted. States chest pain has subsided and c/o chest pressure. Lungs clear bilat. Respirations even and non-labored. Abdomen soft, distended with positive bowel sounds. No LE edema noted.
[2024-07-12 11:25] LABS: Troponin-I High Sensitivity < 2.7 ng/L (<3.5-35.0)
--- OUTSIDE RECORDS SUMMARY | 2024-07-12 11:30 | XMS_ITS | Patient Health Record ---
Author Organization [facility] Address [address] [place] [address] Care Team Providers Care Injection Specialist Name Role Phone Eric MYRICK, Asma Primary Care Provider Esteban Hendricks [phone] Reason For Referral No Information Plan Of Treatment Next Appt Details Provider Name:Esteban Sheth , 09/05/2024 10:50:00 AM, [address], [address], [place], [address], Insurance Providers Payer Name Payer Address Payer Phone Subscriber Number Group Number Insured Name Patient Relationship to Insured Coverage Start Date Coverage End Date [facility] [address] [place] [address] [id number] IVANA WAGONER Self - patient is the insured
[2024-07-12 12:53] LABS: Troponin-I High Sensitivity 3.9 ng/L (<3.5-35.0)
--- NOTE | 2024-07-12 13:02 | PM.CNCAR ---
History of Present Illness History of Present Illness Date of Service: 07/12/24 Requesting physician: Dread Anderson Chief complaint: chest pain Narrative: Pleasant 74 year gentleman with known history of coronary artery disease with previous LAD PCI in 2021 presenting with sudden onset left-sided chest discomfort and shortness of breath. He said he ate some almonds in the morning. He said he was resting and started feeling left-sided pressure-like feeling. He is saying he has not felt like this before. After that he started having shortness of breath and these symptoms lasted for approximately 30 minutes. 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 In the ER ECG did not show any dynamic changes. His 1st set of troponins were negative. No bleeding issues. He has G6 PD deficiency but has been tolerating baby aspirin. [facility] Past Medical History Medical History Severe obstructive sleep apnea Dyspnea on exertion Dysphagia Vitamin D deficiency Hypothyroidism Mild ascending aorta dilatation Pulmonary nodules Restrictive lung disease Chronic cough Hypertension Subclinical hypothyroidism Jadiel's disease Non-toxic multinodular goiter Family History Family History Father Hypertension Heart disease Diabetes Mother Hypertension Brother Myocardial infarction Surgical History Surgical History Hx of thyroidectomy Hx of heart artery stent Hx of cholecystectomy Social History Social History Household Members: Spouse and Children Housing: House Alcohol intake: never Patient Tobacco Use Status: Never used Tobacco Smoked in Last 30 Days: No e-Cigarette/Vaping Use: Never Used Use of substances other than those prescribed or required for medical reasons: No Advance Directives: No Advance Directives Information Provided: Yes service: No Current occupational status: retired Cognitive needs: No Hearing needs: No Vision needs: Yes Meds Allergies Allergy/AdvReac Type Severity Reaction Status Date / Time aspirin [ASPIRIN] Allergy Severe G6PD Verified 07/12/24 09:57 DEFICIENCY Iafurzn-AQC-LmZ Reductase Allergy Mild Muscle Pain Verified 07/12/24 09:57 Inhibitor blue dye [BLUE DYE] Allergy Unknown G6PD Verified 07/12/24 09:57 Sulfa (Sulfonamide Allergy Unknown UNKNOWN Verified 07/12/24 09:57 Antibiotics) [SULFA(SULFONAMIDE ANTIBIOTICS)] BEANS. BAKED Allergy Severe BRE BEANS Uncoded 02/03/23 13:23 ( G6PD DEFICINCEY Active Medications: Current Medications Heparin Sodium (Porcine) (Heparin Sodium,Porcine 5,000 Unit/Ml Vial) 3,300 unit 40 unit/kg (3300 unit) IVPUSH PROTOCOL BOLUS PRN; Protocol PRN Reason: 40 unit/kg - Heparin Protocol Heparin Sodium (Porcine) (Heparin Sodium,Porcine 5,000 Unit/Ml Vial) 6,500 unit 80 unit/kg (6500 unit) IVPUSH PROTOCOL BOLUS PRN; Protocol PRN Reason: 80 unit/kg - Heparin Protocol Heparin Sodium/Sodium Chloride (Heparin Sodium,Porcine/1/2ns) 25,000 unit in 250 mls @ 0 mls/hr IVCONT .Q0M MARCUS; Protocol Home Medications ?Medication ?Instructions ?Recorded ?Confirmed ?Last Taken ?Type acetaminophen 500 mg tablet 1,000 mg PO Q6H PRN Pain 10/30/21 06/09/24 Unknown History Physical Exam Vital Signs: Vital Signs: Last Vital Signs Temp 97.8 F 07/12/24 12:40 Pulse 81 07/12/24 12:40 Resp 18 07/12/24 12:40 BP 151/84 H 07/12/24 12:40 Pulse Ox 98 07/12/24 12:40 O2 Del Method Room Air 07/12/24 12:40 BMI result Body Mass Index 27.3 GENERAL APPEARANCE: in no acute distress, pleasant. NECK: no carotid bruit, no jugular venous distention. SKIN: no suspicious lesions, warm and dry. HEART: no murmurs, regular rate and rhythm. LUNGS: clear to auscultation bilaterally. ABDOMEN: soft, nontender. EXTREMITIES: no edema. PERIPHERAL PULSES: equal. NEUROLOGIC: No gross deficits, AAO X 3 Objective Labs and Meds 07/12/24 10:25 07/12/24 10:24 Lab results: Laboratory Results - last 24 hr 07/12/24 07/12/24 07/12/24 10:24 10:25 12:23 WBC 10.7 RBC 4.56 L Hgb 12.0 L Hct 39.2 L MCV 86.0 MCH 26.3 L MCHC 30.6 L RDW 13.2 Plt Count 287 MPV 11.0 Immature Gran % (Auto) 0.5 H Neut % (Auto) 61.5 Lymph % (Auto) 28.4 [place] % (Auto) 6.6 Eos % (Auto) 2.3 Baso % (Auto) 0.7 Lymph # (Auto) 3.1 [place] # (Auto) 0.7 Eos # (Auto) 0.3 Baso # (Auto) 0.1 Abs Immat Gran (auto) 0.05 H Absolute Neuts (auto) 6.6 Absolute Nucleated RBC 0.000 Nucleated RBC % (auto) 0.0 Hold Blue Top SEE NOTE Sodium 138 Potassium 4.1 Chloride 108 Carbon Dioxide 25 Anion Gap 9 L BUN 14 Creatinine 0.92 Estim Creat Clear Calc 68.1 Estimated GFR > 60 Random Glucose 145 H Calcium 9.0 Magnesium 2.0 Total Bilirubin 0.4 AST 31 ALT 19 Alkaline Phosphatase 98 Troponin I High Sens < 2.7 3.9 B-Natriuretic Peptide 17 Total Protein 6.7 Albumin 3.7 Imaging Radiologist's impression: Impressions Chest X-Ray 07/12/24 10:35 IMPRESSION: No acute cardiopulmonary abnormality. Electronically signed by: Esteban Anne MD 07/12/2024 10:49 AM EDT RP Assessment and Plan (1) Unstable angina: Status: Acute Plan Pleasant 74 year gentleman with known history of coronary artery disease with previous LAD PCI in 2021 presenting with sudden onset left-sided pressure-like feeling and shortness of breath. Clinical story is suspicious for unstable angina. EKG and high sensitivity troponin levels are negative currently. We will repeat the troponins in few hours. Start him on heparin drip. Continue baby aspirin and rest of the medications as before. Blood pressure is elevated and he can be started on some nitro paste for now. He will be transferred to [facility] for potential cardiac catheterization tomorrow. Currently [facility] does not have any rooms available and we will open up rooms later in the evening or later tonight. We will admit him to hospitalist service for now and as rooms become available he will be transferred to [facility] for potential cardiac catheterization tomorrow. Thank you for allowing me to participate in the care of your patient. Please feel free to contact me if you have any questions. Procedures Date of Service Date of Service: 07/12/24
[2024-07-12 13:04] LABS: Hematocrit 39.1 % (42.0-52.0); Mean Corpuscular HGB Conc 30.7 g/dl (31.0-36.0); Mean Corpuscular Hemoglobin 26.3 pg (27.0-33.0); Mean Corpuscular Volume 85.6 fL (80.0-98.0); Platelet Count 293 X10*3/uL (160-400); Red Blood Count 4.57 X10*6/uL (4.60-5.80); Red Cell Distribution Width 13.2 % (11.0-16.0); White Blood Count 12.1 X10*3/uL (4.8-10.8)
[2024-07-12 13:11] LABS: Prothrombin Time 11.8 SEC (10.9-12.4)
[2024-07-12 13:14] LABS: PTT Heparin Drip 33.5 SEC (53-77.9)
--- NOTE | 2024-07-12 13:49 | PHA.MEDREC ---
Addendum entered by Linda Dixon shad 07/12/24 14:38: review Original Note: Pharmacy Consult ? Medication Reconciliation Pharmacy has completed the medication reconciliation. Spoke to patient and family at bedside to confirm med list. was able to name every medications patient takes. confirmed Repatha 140 mg/Ml every 2 weeks, next dose was suppose to be yesterday, however they didn't get because they came to [facility].
[2024-07-12] MEDS: Heparin Sodium,Porcine 5,000 UNIT/ML VIAL 4000 UNIT IVPUSH (13:57)
[2024-07-12] MEDS: Heparin Sodium,Porcine/1/2NS 25,000 UNIT/250 ML IV.SOLN 9.78 UNIT IVCONT (13:59)
--- NOTE | 2024-07-12 15:14 | P.HPHOSP_ITS ---
History of Present Illness Date of Service: 07/12/24 Chief Complaint: Chest pain 74-year-old man presented to the ER with complaints of chest pressure. He reports that he woke up this morning about 5 and around 8 or 9 he developed chest pressure that felt heavy not sharp, no radiation or other associated symptoms. Patient reports that he had a cardiac catheterization in 2021 with drug-eluting stent. Patient reported that he had been in his usual state of health up to this morning. In the ED, troponins were normal, LDL 120, HDL 40, chest x-ray negative for consolidation or effusion, EKG with normal sinus rhythm, possible anterior infarct. Due to patient's history of NSTEMI and cardiac catheterization patient was started on IV heparin drip. Plan will be to admit patient for treatment of NSTEMI. Review of Systems 2 Review of Systems: Denies any recent fever chills or decrease in appetite respiratory denies any shortness of breath or cough cardiovascular see HPI gastrointestinal denies any dysphagia abdominal pain nausea vomiting or diarrhea genitourinary denies any dysuria frequency or hematuria musculoskeletal denies any joint pain or swelling neuropsych denies any weakness or seizures all other systems reviewed are negative [facility] Medical History Severe obstructive sleep apnea Dyspnea on exertion Dysphagia Vitamin D deficiency Hypothyroidism Mild ascending aorta dilatation Pulmonary nodules Restrictive lung disease Chronic cough Hypertension Subclinical hypothyroidism Jadiel's disease Non-toxic multinodular goiter Family History Father Hypertension Heart disease Diabetes Mother Hypertension Brother Myocardial infarction Surgical History Hx of thyroidectomy Hx of heart artery stent Hx of cholecystectomy Social History Household Members: Spouse and Children Housing: House Alcohol intake: never Patient Tobacco Use Status: Never used Tobacco Smoked in Last 30 Days: No e-Cigarette/Vaping Use: Never Used Use of substances other than those prescribed or required for medical reasons: No Advance Directives: No Advance Directives Information Provided: Yes service: No Current occupational status: retired Cognitive needs: No Hearing needs: No Vision needs: Yes Meds Allergies Allergy/AdvReac Type Severity Reaction Status Date / Time aspirin [ASPIRIN] Allergy Severe G6PD Verified 07/12/24 09:57 DEFICIENCY Wodulxi-DKO-XwZ Reductase Allergy Mild Muscle Pain Verified 07/12/24 09:57 Inhibitor blue dye [BLUE DYE] Allergy Unknown G6PD Verified 07/12/24 09:57 Sulfa (Sulfonamide Allergy Unknown UNKNOWN Verified 07/12/24 09:57 Antibiotics) [SULFA(SULFONAMIDE ANTIBIOTICS)] BEANS. BAKED Allergy Severe BRE BEANS Uncoded 02/03/23 13:23 ( G6PD DEFICINCEY Active Medications: Current Medications Acetaminophen (Acetaminophen 325 Mg Tablet) 650 mg PO Q6H PRN PRN Reason: Pain, Mild 1-3,fever,headache Calcium Carbonate (Calcium Carbonate 750 Mg Tab.Chew) 750 mg PO Q4H PRN PRN Reason: Heartburn Heparin Sodium (Porcine) (Heparin Sodium,Porcine 5,000 Unit/Ml Vial) 3,300 unit 40 unit/kg (3300 unit) IVPUSH PROTOCOL BOLUS PRN; Protocol PRN Reason: 40 unit/kg - Heparin Protocol Heparin Sodium (Porcine) (Heparin Sodium,Porcine 5,000 Unit/Ml Vial) 6,500 unit 80 unit/kg (6500 unit) IVPUSH PROTOCOL BOLUS PRN; Protocol PRN Reason: 80 unit/kg - Heparin Protocol Heparin Sodium/Sodium Chloride (Heparin Sodium,Porcine/1/2ns) 25,000 unit in 250 mls @ 0 mls/hr IVCONT .Q0M [facility]; Protocol Last Admin: 07/12/24 13:59 Dose: 12 units/kg/hr, 9.78 mls/hr Magnesium Hydroxide (Milk Of Magnesia 30 Ml Oral.Susp) 30 ml PO DAILY PRN PRN Reason: Constipation Melatonin (Melatonin 3 Mg Tablet) 6 mg PO BEDTIME PRN PRN Reason: Insomnia Ondansetron HCl (Ondansetron Hcl 4 Mg/2 Ml Vial) 4 mg IVPUSH Q8H PRN PRN Reason: Nausea and Vomiting Sodium Chloride (0.9 % Sodium Chloride Flush 3 Ml Syringe) [facility] Medications ?Medication ?Instructions ?Recorded ?Confirmed ?Last Taken ?Type acetaminophen 500 mg tablet 1,000 mg PO Q6H PRN Pain 10/30/21 07/12/24 Unknown History cholecalciferol (vitamin D3) 25 25 mcg PO DAILY 07/12/24 07/12/24 07/11/24 History mcg (1,000 unit) tablet (Vitamin D3) evolocumab 140 mg/mL subcutaneous 140 mg subcut Q2W 07/12/24 07/12/24 06/27/24 History pen injector (ejjose d Heart) levothyroxine 75 mcg tablet 75 mcg PO DAILY@0600 07/12/24 07/12/24 07/12/24 History omeprazole 20 mg capsule,delayed 20 mg PO BID@0630,1630 07/12/24 07/12/24 07/11/24 History release Physical Exam 2 Vital Signs and Narrative: Vital Signs: Last Vital Signs Temp 97.8 F 07/12/24 12:40 Pulse 72 07/12/24 14:00 Resp 19 07/12/24 14:00 BP 146/79 H 07/12/24 14:00 Pulse Ox 98 07/12/24 14:00 O2 Del Method Room Air 07/12/24 14:00 BMI result Body Mass Index 27.3 Appearing in no acute distress head is normocephalic atraumatic eyes pupils are PERRLA sclera is anicteric mouth throat mucous membranes are intact and moist neck is supple no lymphadenopathy, no JVD noted lung sounds are clear to auscultation heart regular rate rhythm, clear S1, S2 positive bowel sounds, abdomen is soft, nontender neuro patient is alert x3, no focal deficits Results Labs 07/12/24 12:58 07/12/24 10:24 Labs: Laboratory Results - last 24 hr 07/12/24 07/12/24 07/12/24 10:24 10:25 12:58 MCV 86.0 85.6 MCH 26.3 L 26.3 L MCHC 30.6 L 30.7 L RDW 13.2 13.2 Plt Count 287 293 MPV 11.0 10.0 Immature Gran % (Auto) 0.5 H Neut % (Auto) 61.5 Lymph % (Auto) 28.4 [place] % (Auto) 6.6 Eos % (Auto) 2.3 Baso % (Auto) 0.7 Lymph # (Auto) 3.1 [place] # (Auto) 0.7 Eos # (Auto) 0.3 Baso # (Auto) 0.1 Abs Immat Gran (auto) 0.05 H Absolute Neuts (auto) 6.6 Absolute Nucleated RBC 0.000 0.000 Nucleated RBC % (auto) 0.0 0.0 PT 11.8 INR 1.0 aPTT Heparin Protocol 33.5 L Hold Blue Top SEE NOTE Anion Gap 9 L Estim Creat Clear Calc 68.1 Estimated GFR > 60 Random Glucose 145 H Calcium 9.0 Magnesium 2.0 Total Bilirubin 0.4 AST 31 ALT 19 Alkaline Phosphatase 98 B-Natriuretic Peptide 17 Total Protein 6.7 Albumin 3.7 Imaging Radiologist's Impressions: Impressions Chest X-Ray 07/12/24 10:35 IMPRESSION: No acute cardiopulmonary abnormality. Electronically signed by: Esteban Anne MD 07/12/2024 10:49 AM EDT RP Assessment and Plan (1) Hypertension: Status: Acute Plan 74-year-old man admitted for chest pain/pressure likely NSTEMI NSTEMI Chest pressure Started on IV heparin drip in the ED Cardiology consultation> plan for transfer to [facility] for cardiac catheterization when bed available Aspirin and statin Monitor on telemetry Coronary artery disease Cardiac catheterization at [facility] 08/2021, had severe mid LAD stenosis treated with drug-eluting stent Continue aspirin, statin and beta-mayito Hypothyroidism Continue levothyroxine G6 PD deficiency Blue dye allergy/methylene blue GERD PPI DVT prophylaxis with heparin Full code Quality Stroke Does the patient have a stroke diagnosis?: No VTE Prior VTE?: No VTE Risk Level:: Medical - moderate - high VTE Device Contraindication: N/A - Device Ordered VTE Drug Contraindication: N/A - Med Ordered
--- NOTE | 2024-07-12 16:00 | PC.NURSE ---
Echo at the bedside
--- NOTE | 2024-07-12 17:00 | CA_ITS ---
Transthoracic Echocardiogram Patient (Last, First, Middle): Melquiades Self, Gender: Male Date of : 1950 Age: 74 Procedure Date: 07/12/2024 Procedure Type: Transthoracic Echocardiogram Location: ER Height: 172.72 cm Weight: 81.19 kg BSA: 1.95 m2 Heart Rate: bpm BP: 146 / 79 mmHg Sieve Grader Tender: TO Referring MD: Naga France MD Symptoms: unstable angina Study Quality: Fair, contrast Conclusions: - Normal left ventricular size, thickness, systolic function, and wall motion. The visually estimated ejection fraction is between 60-65%. - E/E prime ratio is between 8 and 15 consistent with indeterminate filling pressures. - Normal right ventricular cavity size and systolic function. - There is an interatrial septal aneurysm seen. - There is mild dilatation of the ascending aorta measuring 4.00 cm. Findings Left Ventricle Normal left ventricular size, thickness, systolic function, and wall motion. The visually estimated ejection fraction is between 60-65%. Abnormal diastolic function is noted. Spectral Doppler is indicative of an impaired relaxation filling pattern. E/E prime ratio is between 8 and 15 consistent with indeterminate filling pressures. Right Ventricle Normal right ventricular cavity size and systolic function. Atria The left atrium is normal in size. 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 The right atrium is normal in size. Aortic Valve There is a normal trileaflet aortic valve. There is mild thickening of the aortic valve. There is no aortic valve stenosis. There is no aortic valve regurgitation. Mitral Valve The mitral valve appears normal. There is no mitral valve regurgitation. There is no mitral valve stenosis. Pulmonic Valve The pulmonic valve is likely normal. There is trace pulmonic valve regurgitation. Tricuspid Valve Normal tricuspid valve structure. There is no tricuspid valve regurgitation. Normal right atrial pressure. There is no evidence of pulmonary hypertension. Great Vessels There is mild dilatation of the ascending aorta measuring 4.00 cm. The visualized portions of the pulmonary artery and branches are normal. Venous The inferior vena cava is normal in size and collapses greater than 50% with inspiration. Pericardium/Pleural There is no evidence of pericardial effusion. Prior Study Comparison No significant change compared to prior study dated: 03/17/2024. Measurements 2D Linear Measurements IVSd: 1.05 0.6-0.9/0.6-1.0 cm LVIDd: 4.31 3.9-5.3/4.2-5.9 cm LVIDd Index: 2.21 2.4-3.2/2.2-3.1 cm/m2 LVIDs: 2.80 2.0-3.6 cm LVPWd: 0.83 0.7-1.1 cm LA Diam: 3.60 2.7-3.8/3.0-4.0 cm LAIDs Index: 1.85 1.5-2.3 cm/m2 LV Mass: 162.80 67-162/88-224 g LV Mass Index: 83.49 43-95/49-115 g/m2 LVOT Diam: 2.20 3.0+(-)1.3 cm 2D Systolic Function EF 4C: 61.70 >55% EF 2C: 58.90 >55% EF BiP: 61.30 >55% Mitral Valve MV Pk E: 0.60 MV PK A: 0.81 MV Decel Time: 158.00 E/A: 0.70 E'Lateral: 5.87 E'Medial: 4.35 E/E' Med: 13.70 E/E' Lat: 10.20 PHT: 46.00 MVA PHT: 4.78 Decel [place]: 3.78 Aortic Valve AoV Pk Royer: 1.48 AoV Mn Royer: 0.98 AoV VTI: 0.30 AoV Pk Grad: 9.00 Aov Mn Grad: 4.00 SMILEY Cont.VTI: 2.84 LVOT LVOT Pk Royer: 0.95 LVOT Mn Royer: 0.71 LVOT VTI: 0.22 LVOT Pk Grad: 4.00 LVOT Mn Grad: 2.00 LVOT Diam: 2.20 LVOT Area: 3.80 Diastolic Function MV Pk E: 0.60 MV Pk A: 0.81 E/A: 0.70 E'Medial: 4.35 E/E' Med: 13.70 E' Laterial: 5.87 E/E' Lat: 10.20 Right Ventricle TAPSE (mm): 32.10 TVS' Royer: 13.50 Tricuspid Valve TV Pk Royer: 1.32 TV Mn Royer: 0.91 TV Pk Grad: 7.00 TV Mn Grad: 4.00 TR Pk Royer: 2.55 TR Pk Grad: 26.00 RA Press: 3.00 RVSP: 29.00 Great Vessels Aorta Sinus of Valsalva: 3.71 2.0-3.5 cm Ao Asc: 4.00 2.1-3.4 cm Updated in Other Vendor System with Status of Final Naga France MD electronically signed on 07/12/2024 8:49:41 PM with status of Final
--- NOTE | 2024-07-12 19:24 | PC.NURSE ---
Patient noted to be accepted to [facility] in transfer. Waiting for confirmation from the hospitalist.
--- NOTE | 2024-07-12 19:33 | P.DS_ITS ---
DS: Providers Provider Date of Service: 07/12/24 Date of admission: 07/12/24 13:25 Date of discharge: 07/12/24 Primary care physician: Irma Reyes MD Consults: 07/12/24 12:15 Consult to Cardiology Stat Consulting Provider: [facility] [place] [facility] Reason for consultation: chest pain DS: Diagnosis Discharge Diagnosis (1) Hypertension: Status: Acute DS: Summary Hospital Course Hospital Course: admission hpi Chief Complaint: Chest pain 74-year-old man presented to the ER with complaints of chest pressure. He reports that he woke up this morning about 5 and around 8 or 9 he developed chest pressure that felt heavy not sharp, no radiation or other associated symptoms. Patient reports that he had a cardiac catheterization in 2021 with drug-eluting stent. Patient reported that he had been in his usual state of health up to this morning. In the ED, troponins were normal, LDL 120, HDL 40, chest x-ray negative for consolidation or effusion, EKG with normal sinus rhythm, possible anterior infarct. Due to patient's history of NSTEMI and cardiac catheterization patient was started on IV heparin drip. Plan will be to admit patient for treatment of NSTEMI. hospital course Pleasant 74 year gentleman with known history of coronary artery disease with previous LAD PCI in 2021 presenting with sudden onset left-sided pressure-like f eeling and shortness of breath. Clinical story is suspicious for unstable angina. EKG and high sensitivity troponin levels are negative currently. Troponin I have been normal. patient was seen by cardiology and advisen IV heparin drip. Continue baby aspirin and metoprolol. His allergic to statin. He is being transferred to [facility] for potential cardiac catheterization tomorrow. 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 GERD PPI Time Attestation Discharge Coordination Time (in mins): 45 Quality: Safe Use of Opioids Does Pt have an Active Cancer Diagnosis on the Problem List?: No Quality: Stroke Does the patient have a stroke diagnosis?: No Physical Exam Vital Signs: Vital Signs: Last Vital Signs Temp 98.2 F 07/12/24 18:10 Pulse 96 07/12/24 18:10 Resp 19 07/12/24 18:10 BP 144/80 H 07/12/24 18:10 Pulse Ox 98 07/12/24 18:10 O2 Del Method Room Air 07/12/24 18:10 BMI result Body Mass Index 27.3 General: AO X 3, no acute distress Resp: CTA bilateral CVS: S1,S2,RRR GI: +BS, NT, no distention Skin: No rash Neuro: motor grossly intact Psych: appropriate affect DS: Data Data Completed and Pending Labs on day of discharge: Laboratory Results - last 24 hr 07/12/24 07/12/24 07/12/24 10:24 10:25 12:23 WBC 10.7 RBC 4.56 L Hgb 12.0 L Hct 39.2 L MCV 86.0 MCH 26.3 L MCHC 30.6 L RDW 13.2 Plt Count 287 MPV 11.0 Immature Gran % (Auto) 0.5 H Neut % (Auto) 61.5 Lymph % (Auto) 28.4 [place] % (Auto) 6.6 Eos % (Auto) 2.3 Baso % (Auto) 0.7 Lymph # (Auto) 3.1 [place] # (Auto) 0.7 Eos # (Auto) 0.3 Baso # (Auto) 0.1 Abs Immat Gran (auto) 0.05 H Absolute Neuts (auto) 6.6 Absolute Nucleated RBC 0.000 Nucleated RBC % (auto) 0.0 PT INR aPTT Heparin Protocol Hold Blue Top SEE NOTE Sodium 138 Potassium 4.1 Chloride 108 Carbon Dioxide 25 Anion Gap 9 L BUN 14 Creatinine 0.92 Estim Creat Clear Calc 68.1 Estimated GFR > 60 Random Glucose 145 H Calcium 9.0 Magnesium 2.0 Total Bilirubin 0.4 AST 31 ALT 19 Alkaline Phosphatase 98 Troponin I High Sens < 2.7 3.9 B-Natriuretic Peptide 17 Total Protein 6.7 Albumin 3.7 07/12/24 12:58 WBC 12.1 H RBC 4.57 L Hgb 12.0 L Hct 39.1 L MCV 85.6 MCH 26.3 L MCHC 30.7 L RDW 13.2 Plt Count 293 MPV 10.0 Immature Gran % (Auto) Neut % (Auto) Lymph % (Auto) [place] % (Auto) Eos % (Auto) Baso % (Auto) Lymph # (Auto) [place] # (Auto) Eos # (Auto) Baso # (Auto) Abs Immat Gran (auto) Absolute Neuts (auto) Absolute Nucleated RBC 0.000 Nucleated RBC % (auto) 0.0 PT 11.8 INR 1.0 aPTT Heparin Protocol 33.5 L Hold Blue Top Sodium Potassium Chloride Carbon Dioxide Anion Gap BUN Creatinine Estim Creat Clear Calc Estimated GFR Random Glucose Calcium Magnesium Total Bilirubin AST ALT Alkaline Phosphatase Troponin I High Sens B-Natriuretic Peptide Total Protein Albumin Discharge Plan Discharge Anticipated Discharge Date/Time: 07/12/24 19:30 Patient Disposition: [facility] Swing Bed Discharge Diagnosis: ACS, chest pain Referrals: Irma Reyes MD [Primary Care Provider] - 1 Week Discharge Medications: New heparin(porcine) in 0.45% NaCl 25,000 unit/250 mL Parenteral Solution 25,000 unit continuous IV infusion .Q0M Qty: 6000 0RF Continued (DME) Cane See Rx Instructions .Route .MEDSUPPLY Qty: 1 0RF Rx Instructions: As directed aspirin 81 mg tablet,delayed release (DR/EC) 81 mg PO DAILY 90 Days Qty: 90 2RF metoprolol tartrate 25 mg tablet 12.5 mg PO BID Qty: 90 3RF acetaminophen 500 mg Tablet 1,000 mg PO Q6H PRN (Reason: Pain) Repatha SureClick 140 mg/mL pen injector 140 mg subcut Q2W Rx Instructions: next dose 07/11/24 levothyroxine 75 mcg tablet 75 mcg PO DAILY@0600 omeprazole 20 mg capsule,delayed release(DR/EC) 20 mg PO BID@0630,1630 cholecalciferol (vitamin D3) [Vitamin D3] 25 mcg (1,000 unit) Tablet 25 mcg PO DAILY Discharge Orders: Discharge Order (Routine); Ordered 07/12/24 Ordered By: Josias Mcconnell Diet: Advance to usual diet Activity on Discharge: As tolerated Print Language: Other Care Plan Goals: Risk strafication with cardiac cath at [facility] Concerns: Chest pain, Acute ACS Plan of Treatment: Transfer to [facility] for cardiac cath Assessment: see above
[2024-07-12 20:08] LABS: PTT Heparin Drip 88.6 SEC (53-77.9)
== END 2024-07-12 19:55 | disposition short-term general hospital (02) | DRG 282 ==
LOC: HO.ED 13:29 → HO.EDOVER 13:44
PROVIDERS: Admitting Provider Nurse Practitioner Acute Care; Emergency Provider Emergency Medicine; PCP Internal Medicine; Visit Provider Nurse Practitioner Acute Care
DX: I21.4 Non-ST elevation (NSTEMI) myocardial infarction (principal); I25.110 Atherosclerotic heart disease of native coronary artery with unstable angina pectoris; E03.8 Other specified hypothyroidism; D75.A Glucose-6-phosphate dehydrogenase (G6PD) deficiency without anemia; Z79.82 Long term (current) use of aspirin; Z95.5 Presence of coronary angioplasty implant and graft; Z79.890 Hormone replacement therapy; Z79.899 Other long term (current) drug therapy
CPT/HCPCS: 36415; 71045; 80053; 83735; 83880; 84484; 85025; 85027; 85610; 85730; 93005; 93306; 99285; J1644

== ENCOUNTER → 2024-07-12 10:05 | Outpatient (BNV) | payer MEDICARE, MEDICAID, SELFPAY | PROVIDERS: Emergency Provider Emergency Medicine; PCP Internal Medicine; Visit Provider Internal Medicine Cardiovascular Disease | DX: I25.110 Atherosclerotic heart disease of native coronary artery with unstable angina pectoris (principal); I25.3 Aneurysm of heart; R94.31 Abnormal electrocardiogram [ECG] [EKG] | CPT/HCPCS: 93010; 93306; 99223 ==

== ENCOUNTER → 2024-07-12 10:35 | Outpatient (BNV) | payer MEDICARE, MEDICAID, SELFPAY | PROVIDERS: Emergency Provider Emergency Medicine; PCP Internal Medicine; Visit Provider Radiology Diagnostic Radiology | DX: R07.9 Chest pain, unspecified (principal) | CPT/HCPCS: 71045 ==

== ENCOUNTER → 2024-07-12 13:25 | Outpatient (BNV) | payer MEDICARE, MEDICAID, SELFPAY | PROVIDERS: Admitting Provider Nurse Practitioner Acute Care; Emergency Provider Emergency Medicine; PCP Internal Medicine; Visit Provider Internal Medicine | DX: I10 Essential (primary) hypertension (principal) | CPT/HCPCS: 99223; 99239 ==

== ENCOUNTER → 2024-07-13 23:59 | Outpatient (BNV) | payer MEDICARE, MEDICAID, SELFPAY | PROVIDERS: PCP Internal Medicine; Visit Provider Internal Medicine Cardiovascular Disease | DX: I20.0 Unstable angina (principal) | CPT/HCPCS: 93458; 99152 ==

== ENCOUNTER 2024-07-28 07:59 | Outpatient (AMB) | payer MEDICARE, MEDICAID, SELFPAY ==
--- OUTSIDE RECORDS SUMMARY | 2024-07-28 08:02 | XMS_ITS | Continuity of Care Document ---
Author Organization [employer] [facility] Address [address] [place] [address] Phone Care Team Providers Care Low Pressure Firer Name Role Phone Bin De Jesus PT Unavailable Unavailable Procedures Procedure Date Doc neg elder mal no plan PT Evaluation High Complexity Therapeutic Activities Neuromuscular Re-Ed Therapeutic Exercise Advance Directives Directive Yes / No Effective Date File Name No Information Encounters Encounter Description Practice Location Reason(s) For Visit Diagnoses Date Provider Providers Copied on Encounter [facility], [address], [place], [place], [id number], [place] tel:[phone] [facility] No Information Liza Steward. . Referring Provider: Access Direct. Family History Family Member Type Diagnosis Age At Onset No Information Payers Payer name Insurance type Covered green party ID Authoriza tion(s) Self Pay - GFE [...]
--- NOTE | 2024-07-28 08:13 | MHC.OFFVIS ---
Vital Signs 07/28/24 08:14 Height 5 ft 8 in Weight 182 lb 8.684 oz BMI 27.8 BP 118/62 Blood Pressure Location Lt brachial Position Sitting Pulse 69 Pulse Source Monitor Intake Visit Reasons: 2wk F/U s/p Cardiac Cath Oleomargarine Maker Required: No Tool And Die Maker/Designer: Tool And Die Maker/Designer Present Allergies aspirin [ASPIRIN] Allergy (Severe, Verified 07/28/24 08:16) G6PD DEFICIENCY Ljcqsam-[id number]-XpY Reductase Inhibitor Allergy (Mild, Verified 07/28/24 08:16) Muscle Pain blue dye [BLUE DYE] Allergy (Unknown, Verified 07/28/24 08:16) G6PD Sulfa (Sulfonamide Antibiotics) [SULFA(SULFONAMIDE ANTIBIOTICS)] Allergy (Unknown, Verified 07/28/24 08:16) UNKNOWN BEANS. BAKED Allergy (Severe, Uncoded 07/28/24 08:16) BRE BEANS ( G6PD DEFICINCEY Medication List - Last Reconciled 07/28/24 by Mindy Alves, STEERER-C acetaminophen 1,000 mg PO Q6H PRN aspirin 81 mg PO DAILY 90 days [Cane As directed] cholecalciferol (vitamin D3) (Vitamin D3) 25 mcg PO DAILY clopidogrel (Plavix) 75 mg PO DAILY evolocumab (Repatha SureClick) 140 mg subcut Q2W levothyroxine 75 mcg PO DAILY@0600 metoprolol tartrate 12.5 mg (1/2 x 25 mg) PO BID omeprazole 20 mg PO BID@0630,1630 HPI HPI 2wk F/U s/p Cardiac Cath: Details: Melquiades is a 74 year old male with past medical history of hypertension, hyperlipidemia, sleep apnea, CAD, lad stent 2021, dilated ascending aorta who recently presented to [facility] with chest discomfort and was thought to have unstable angina. He was transferred to [facility] and underwent cardiac catheterization showing patent LAD stent and normal vessels otherwise. Was started on Plavix. Today he reports he has been doing well since his hospital discharge. At times he will notice some pressure in his chest that happens randomly. On the day of the hospital admission he said it was worse than what he typically experiences. He has been keeping track of his heart rate and blood pressure and notices they are elevated at times. He has no shortness of breath, PND, orthopnea or edema. No lightheadedness, presyncope, syncope, falls. He does light physical activity. He is compliant with his medications. His and daughter are present. [facility] Medical History Severe obstructive sleep apnea Dyspnea on exertion Dysphagia Vitamin D deficiency Hypothyroidism Mild ascending aorta dilatation Pulmonary nodules Restrictive lung disease Chronic cough Hypertension Subclinical hypothyroidism Jadiel's disease Non-toxic multinodular goiter Surgical History Hx of thyroidectomy Hx of heart artery stent Hx of cholecystectomy Family History Father Hypertension Heart disease Diabetes Mother Hypertension Brother Myocardial infarction Social History Household Members: Spouse and Children Housing: House Alcohol intake: never Patient Tobacco Use Status: Never used Tobacco e-Cigarette/Vaping Use: Never Used service: No Current occupational status: retired Cognitive needs: No Hearing needs: No Vision needs: Yes Review of Systems Const All systems reviewed & are unremarkable except as noted in HPI and below ENT Denies dizziness Card Details: elevated heart rate and BP at times Denies chest pain, Denies chest pain at rest, Denies chest pain with activity, Denies rapid heart rate, Denies pedal edema, Denies edema, Denies leg edema, Denies lightheadedness, Denies palpitations, Denies dyspnea, Denies dyspnea on exertion and Denies orthopnea Resp Denies cough, Denies dyspnea and Denies dyspnea on exertion GI Denies hematochezia and Denies change in stool character Musc Denies abnormal gait, Denies limited range of motion, Denies muscle cramps, Denies muscle weakness, Denies numbness, Denies radiating pain into limb, Denies stiffness and Denies tingling Neuro Denies abnormal gait, Denies dizziness, Denies numbness and Denies tingling Endo Denies palpitations Physical Exam Vital Signs: Last Vital Signs Pulse 69 07/28/24 08:14 BP 118/62 07/28/24 08:14 BMI result Body Mass Index 27.8 Const General: cooperative, healthy appearing, comfortable and no acute distress Orientation/consciousness: patient oriented x3 Neck Neck: Yes normal visual inspection Resp Effort & Inspection: normal respiratory effort Auscultation: clear to auscultation bilaterally, no crackles, no rales, no rhonchi and no wheezes Cardio Rate: regular rate Rhythm: regular rhythm Heart sounds: S1 normal heart sound present, S2 normal heart sound present, no gallops, no murmurs and no rubs Neuro General: patient oriented x3 Extrem General: Yes normal to inspection, No no pedal edema and No calf tenderness Psych Appearance: grossly normal Mental Status: mental status grossly normal Speech and movement: Normal speech and movement present Office Procedures EKG Details: Today, read by me, normal sinus rhythm, cant exclude prior anterior infarct, rate 69, Qtc 409ms [id number], Complete Results Reviewed Results Reviewed: Conclusions: - Normal left ventricular size, thickness, systolic function, and wall motion. The visually estimated ejection fraction is between 60-65%. - E/E prime ratio is between 8 and 15 consistent with indeterminate filling pressures. - Normal right ventricular cavity size and systolic function. - There is an interatrial septal aneurysm seen. - There is mild dilatation of the ascending aorta measuring 4.00 cm. Assessment & Plan Assessment & Plan (1) Precordial chest pain: Code(s): R07.2 - Precordial pain Category: Medical Plan: Recent evaluation for suspected unstable angina with cardiac catheterization showing patent LAD stent and normal vessels elsewhere. He continues to get periodic chest pressure which could be related to hypertension. He brings a log of home blood pressures showing they are elevated with systolic 140-150 at times. He is also concerned about his heart rate which is elevated in the 90s and low 100s at times. Will increase his metoprolol to 25 mg b.i.d.. Continue periodic home vital sign monitoring. Cardiology follow-up 3 months, sooner if needed. (2) S/P cardiac cath: Comment: 07/13/2024 showing LAD with patent stent, left main, left circumflex, RCA all normal. Code(s): Z98.890 - Other specified postprocedural states Category: Surgical Plan: Right radial catheterization site well healed (3) Atherosclerotic cardiovascular disease: Code(s): I25.10 - Atherosclerotic heart disease of [place] coronary artery without angina pectoris Category: Medical Plan: History of CAD with mid LAD stent placed 08/22/2021. EKG done today showing normal sinus rhythm, can not exclude prior anterior infarct, rate 69. Continue med management for stable CAD including aspirin indefinitely. Following recent catheterization he was started on Plavix which I will have him continue at this time. I am increasing his metoprolol as above. Continue physical activity as tolerated. (4) Stented coronary artery: Comment: LAD stent 08/22/2021 Code(s): Z95.5 - Presence of coronary angioplasty implant and graft Category: Surgical Plan: As above (5) Hypertension, essential: Code(s): I10 - Essential (primary) hypertension Category: Medical Plan: Blood pressure goal less than 130/80. Blood pressure good at this office visit however home and other office visit checks do show it is elevated at times. Increasing metoprolol. Low-salt diet reviewed. (6) Hyperlipidemia: Code(s): E78.5 - Hyperlipidemia, unspecified Category: Medical Plan: [place] LDL goal less than 70. Last labs done 05/16/2024 showed LDL 120. He is intolerant to statins. He was restarted on Repatha. Will plan for a repeat fasting lipid profile in about 1 month, patient informed. Lab orders are in place. Plan Time spent on chart review, documentation, interview, assessment Medications: Changed From metoprolol tartrate 12.5 mg (1/2 x 25 mg) PO BID 90 tabs 3RF To metoprolol tartrate dose increased 25 mg PO BID 90 days 180 tabs 3RF Coding Level of Care Code Est Pt Level 4 (22802) Complex EM visit Add On G2211 Diagnoses Precordial chest pain R07.2 S/P cardiac cath Z98.890 Atherosclerotic cardiovascular disease I25.10 Stented coronary artery Z95.5 Hypertension, essential I10 Hyperlipidemia E78.5 CPT Codes EKG - CPT: [id number], Complete ([id number]) Time Spent (min) 32
[2024-07-28 08:14] VITALS: BP 118/62; PULSE 69; BMI 27.8
== END 2024-07-28 08:56 | disposition home or self-care (01) ==
LOC: HO.HCS 07:59
PROVIDERS: PCP Internal Medicine; Visit Provider Nurse Practitioner Family
DX: R07.2 Precordial pain (principal); Z98.890 Other specified postprocedural states; I25.10 Atherosclerotic heart disease of native coronary artery without angina pectoris; Z95.5 Presence of coronary angioplasty implant and graft; I10 Essential (primary) hypertension; E78.5 Hyperlipidemia, unspecified
CPT/HCPCS: 93010; 99214; G2211

== ENCOUNTER → 2024-07-28 07:59 | Outpatient (BNVA) | payer MEDICARE, MEDICAID, SELFPAY | PROVIDERS: PCP Internal Medicine; Visit Provider Nurse Practitioner Family | DX: I10 Essential (primary) hypertension (principal); E78.5 Hyperlipidemia, unspecified; G47.30 Sleep apnea, unspecified; I25.10 Atherosclerotic heart disease of native coronary artery without angina pectoris; R07.2 Precordial pain; Z95.5 Presence of coronary angioplasty implant and graft; Z98.890 Other specified postprocedural states | CPT/HCPCS: 93005; 99212 ==

== ENCOUNTER 2024-10-24 12:05 | Outpatient (AMB) | payer MEDICARE, MEDICAID, SELFPAY ==
[2024-10-24 12:27] VITALS: BP 132/80; PULSE 83; O2SAT 97; BMI 27.1
--- NOTE | 2024-10-24 12:27 | A.OFFPC_ITS ---
Vital Signs 10/24/24 12:27 Height 5 ft 8 in Weight 178 lb BMI 27.1 BP 132/80 Blood Pressure Location Rt brachial Position Sitting Pulse 83 Pulse Source Pulse Oximeter Pulse Oximetry (%) 97 Intake Visit Reasons: ear infection Allergies aspirin (ASPIRIN) Allergy (Severe, Verified 10/24/24 12:29) G6PD DEFICIENCY Xwwhnop-QGY-PsM Reductase Inhibitor Allergy (Mild, Verified 10/24/24 12:29) Muscle Pain blue dye (BLUE DYE) Allergy (Unknown, Verified 10/24/24 12:29) G6PD Sulfa (Sulfonamide Antibiotics) (SULFA(SULFONAMIDE ANTIBIOTICS)) Allergy (Unknown, Verified 10/24/24 12:29) UNKNOWN BEANS. BAKED Allergy (Severe, Uncoded 07/28/24 08:16) BRE BEANS ( G6PD DEFICINCEY Medication List - Last Reconciled 10/24/24 by Irma Reyes MD acetaminophen 1,000 mg PO Q6H PRN aspirin 81 mg PO DAILY 90 days [Cane As directed] cholecalciferol (vitamin D3) (Vitamin D3) 25 mcg PO DAILY clopidogrel (Plavix) 75 mg PO DAILY evolocumab (Repatha SureClick) 140 mg subcut Q2W levothyroxine 75 mcg PO DAILY metoprolol tartrate 25 mg PO BID 90 days omeprazole 20 mg PO BID@0630,1630 Tobacco use date assessed: 06/09/24 Fall risk assessment: No Falls in past year Last assessed Fall Risk: 10/24/24 Dental Screening Dental Screen Date: 06/09/24 HPI ear infection HPI Details History - The patient is a 74 year old male pres enting with a possible ear infection. 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 - There is no associated pain, but tingl ing sensation is reported. - The use of a Q-tip has been noted to i rritate the ear canal. - There is a suggestion of avoiding a he aring aid in the affected ear for a period. - History of previous water presence in the ear that upon examination remains wet inside. - No headaches, fever, or systemic sympt oms reported. - No mention of onset timing, but curren tly only a possible ear infection is being reported. Medical History: - Hypothyroidism - Gastroesophageal Reflux Disease (GERD) - Multiple joint osteoarthritis - Unstable angina - Reactive airway disease Surgical History: - Left Anterior Descending (LAD) Percuta neous Coronary Intervention (PCI) in 2021 Medications: - Clopidogrel, indication: cardiovascula r health - Metoprolol, indication: cardiovascular health Diagnostic Results: - Labs: Hemoglobin 12.0, electrolytes wi thin normal limits, kidney function intact, liver enzymes stable, LDL 120 (last set of labs done in July this year) Problem List - Possible Acute Otitis Media - Hypothyroidism - Gastroesophageal Reflux Disease - Multiple joint osteoarthritis - Unstable angina Patient Instructions - Stop using Q-tips as they may be irrit ating the ear canal. - Avoid placing the hearing aid in the a ffected ear for a week. - Use ear drops as prescribed. Review of Systems - General: No fever no chills - Neurological: No headaches no dizziness - Ear nose throat: No sore throat no hearing difficulty no ear pain - Cardiovascular: No syncope, no chest pain, no palpitations - Gastrointestinal: No nausea vomiting or diarrhea Physical Exam General: No acute distress HEENT: Ear canal is irritated, slight wetness inside, advised not to use Q-tip or hearing aid in the affected ear for a week Neck: Supple Respiratory system: Lungs are clear, able to talk in full sentences, no audible wheeze Cardiovascular: S1-S2 regular in rate and rhythm Gastrointestinal: No pain Extremities: No new findings ORDER PLANNER: Alert awake oriented x3 motor sensory intact Skin: Normal turgor PFSH Medical History Severe obstructive sleep apnea Dyspnea on exertion Dysphagia Vitamin D deficiency Hypothyroidism Mild ascending aorta dilatation Pulmonary nodules Restrictive lung disease Chronic cough Hypertension Subclinical hypothyroidism Jadiel's disease Non-toxic multinodular goiter Surgical History Hx of thyroidectomy Hx of heart artery stent Hx of cholecystectomy Family History Father Hypertension Heart disease Diabetes Mother Hypertension Brother Myocardial infarction Social History Household Members: Spouse and Children Housing: House Alcohol intake: never Patient Tobacco Use Status: Never used Tobacco e-Cigarette/Vaping Use: Never Used service: No Current occupational status: retired Cognitive needs: No Hearing needs: No Vision needs: Yes Questionnaire Thrive Questionnaire Date Thrive assessed: 06/09/24 AL-7 AMB Questionnaire AL-7 Date AL - 7 assessed: 06/09/24 Source: Developed by Drs. Esteban Kwon, Rossy Hernandez, Samy Peters and colleagues, with an educational sahil from [employer]. Physical exam (Primary Care) Vital Signs: Last Vital Signs Pulse 83 10/24/24 12:27 BP 132/80 10/24/24 12:27 Pulse Ox 97 10/24/24 12:27 BMI result Body Mass Index 27.1 Tobacco/Smoking Status: Tobacco use Status Tobacco use date assessed 06/09/24 10/24/24 12:28 Patient Tobacco Use Status Never used Tobacco 10/24/24 12:28 e-Cigarette/Vaping Use Never Used 10/24/24 12:28 Thrive Assessment: Date of Thrive Assessment Date Thrive assessed 06/09/24 10/24/24 12:28 Coding Level of Care Code Est Pt Level 3 (67328) Diagnoses Infection of left ear H66.92 Hypertension, essential I10 Unstable angina I20.0 Status post coronary artery stent placement Z95.5 Chronic GERD K21.9 Assessment & Plan Assessment & Plan (1) Infection of left ear: Code(s): H66.92 - Otitis media, unspecified, left ear Category: Medical (2) Hypertension, essential: Code(s): I10 - Essential (primary) hypertension Category: Medical (3) Unstable angina: Code(s): I20.0 - Unstable angina Category: Medical (4) Status post coronary artery stent placement: Code(s): Z95.5 - Presence of coronary angioplasty implant and graft Category: Surgical (5) Chronic GERD: Code(s): K21.9 - Gastro-esophageal reflux disease without esophagitis Category: Medical Plan History - The patient is a 74 year old male presenting with a possible ear infection. - He reports the ear has been wet internally, with a noted history of water coming out of the ear. - There is no associated pain, but tingling sensation is reported. - The use of a Q-tip has been noted to irritate the ear canal. - There is a suggestion of avoiding a hearing aid in the affected ear for a period. - History of previous water presence in the ear that upon examination remains wet inside. - No headaches, fever, or systemic symptoms reported. - No mention of onset timing, but currently only a possible ear infection is being reported. Medical History: - Hypothyroidism - Gastroesophageal Reflux Disease (GERD) - Multiple joint osteoarthritis - Unstable angina - Reactive airway disease Surgical History: - Left Anterior Descending (LAD) Percutaneous Coronary Intervention (PCI) in 2021 Medications: - Clopidogrel, indication: cardiovascular health - Metoprolol, indication: cardiovascular health Diagnostic Results: - Labs: Hemoglobin 12.0, electrolytes within normal limits, kidney function intact, liver enzymes stable, LDL 120 (last set of labs done in July this year) Problem List - Possible Acute Otitis Media - Hypothyroidism - Gastroesophageal Reflux Disease - Multiple joint osteoarthritis - Unstable angina Patient Instructions - Stop using Q-tips as they may be irritating the ear canal. - Avoid placing the hearing aid in the affected ear for a week. - Use ear drops as prescribed. Medications: New ciprofloxacin-dexamethasone 0.3-0.1 % 4 drps otic (ears) BID 7.5 mL 2RF 7 days cholecalciferol (vitamin D3) (Vitamin D3) 25 mcg PO DAILY 90 tabs 0RF
--- OUTSIDE RECORDS SUMMARY | 2024-10-24 13:12 | XMS_ITS | Patient Health Record ---
Author Organization [facility] Address [address] [place] [address] [place] [id number] Care Team Providers Care Chummer Name Role Phone Eric MYRICK, Asma Primary Care Provider Esteban Hendricks [phone] Reason For Referral No Information Encounters Encounter Location Date Provider Diagnosis [facility] [address] [place] [address] [place] [phone] 09/05/2024 Esteban Sheth Plan Of Treatment Next Appt Details Provider Name:Esteban Sheth , 02/20/2025 10:30:00 AM, [address] [place] [address], [address], [place], [phone], Insurance Providers Payer Name Payer Address Payer Phone Subscriber Number Group Number Insured Name Patient Relationship to Insured Coverage Start Date Coverage End Date [facility] [address] [place] [address] [id number] IVANA WAGONER Self - patient is the insured
== END 2024-10-24 14:18 | disposition home or self-care (01) ==
LOC: HO.HMCC 12:05
PROVIDERS: PCP Internal Medicine; Visit Provider Internal Medicine
DX: H66.92 Otitis media, unspecified, left ear (principal); I10 Essential (primary) hypertension; I20.0 Unstable angina; Z95.5 Presence of coronary angioplasty implant and graft; K21.9 Gastro-esophageal reflux disease without esophagitis

== ENCOUNTER → 2024-10-24 12:05 | Outpatient (BNVA) | payer MEDICARE, MEDICAID, SELFPAY | PROVIDERS: PCP Internal Medicine; Visit Provider Internal Medicine | DX: H66.92 Otitis media, unspecified, left ear (principal); I10 Essential (primary) hypertension; I20.0 Unstable angina; K21.9 Gastro-esophageal reflux disease without esophagitis; Z95.5 Presence of coronary angioplasty implant and graft | CPT/HCPCS: 99212 ==

== ENCOUNTER 2024-10-25 09:24 | Outpatient (AMB) | payer MEDICARE, MEDICAID, SELFPAY ==
--- NOTE | 2024-10-25 09:30 | MHC.OFFVIS ---
Vital Signs 10/25/24 09:31 Height 5 ft 8 in Weight 176 lb 5.917 oz BMI 26.8 BP 118/60 Blood Pressure Location Lt brachial Position Sitting Pulse 56 Pulse Source Pulse Oximeter Intake Visit Reasons: 3 mth f/up Allergies aspirin (ASPIRIN) Allergy (Severe, Verified 10/24/24 12:29) G6PD DEFICIENCY Vjjdfgq-FXV-KbM Reductase Inhibitor Allergy (Mild, Verified 10/24/24 12:29) Muscle Pain blue dye (BLUE DYE) Allergy (Unknown, Verified 10/24/24 12:29) G6PD Sulfa (Sulfonamide Antibiotics) (SULFA(SULFONAMIDE ANTIBIOTICS)) Allergy (Unknown, Verified 10/24/24 12:29) UNKNOWN BEANS. BAKED Allergy (Severe, Uncoded 07/28/24 08:16) BRE BEANS ( G6PD DEFICINCEY Medication List - Last Reconciled 10/25/24 by Kd Nunez MD acetaminophen 1,000 mg PO Q6H PRN [Cane As directed] cholecalciferol (vitamin D3) (Vitamin D3) 25 mcg PO DAILY ciprofloxacin-dexamethasone 0.3-0.1 % 4 drps otic (ears) BID 7 days clopidogrel (Plavix) 75 mg PO DAILY evolocumab (Repatha SureClick) 140 mg subcut Q2W levothyroxine 75 mcg PO DAILY metoprolol tartrate 25 mg PO BID 90 days omeprazole 20 mg PO BID@0630,1630 HPI Comments Details: Melquiades returns for follow-up regarding coronary disease. History of coronary disease and prior LAD stent. In July of this year, he came for chest pain and that led to one further catheterization but no new findings. Currently, he states he feels well. No new concerns. No angina. [facility] Medical History Severe obstructive sleep apnea Dyspnea on exertion Dysphagia Vitamin D deficiency Hypothyroidism Mild ascending aorta dilatation Pulmonary nodules Restrictive lung disease Chronic cough Hypertension Subclinical hypothyroidism Jadiel's disease Non-toxic multinodular goiter Surgical History Hx of thyroidectomy Hx of heart artery stent Hx of cholecystectomy Family History Father Hypertension Heart disease Diabetes Mother Hypertension Brother Myocardial infarction Social History Household Members: Spouse and Children Housing: House Alcohol intake: never Patient Tobacco Use Status: Never used Tobacco e-Cigarette/Vaping Use: Never Used service: No Current occupational status: retired Cognitive needs: No Hearing needs: No Vision needs: Yes Review of Systems Const Denies weakness ENT Denies dizziness Card Denies chest pain, Denies chest pain with activity, Denies syncope, Denies rapid heart rate, Denies pedal edema, Denies edema, Denies leg edema, Denies lightheadedness, Denies palpitations, Denies dyspnea, Denies dyspnea on exertion and Denies orthopnea Resp Denies cough, Denies dyspnea and Denies dyspnea on exertion GI Denies hematochezia and Denies change in stool character Musc Denies abnormal gait, Denies muscle cramps, Denies muscle weakness, Denies numbness, Denies radiating pain into limb and Denies tingling Neuro Denies abnormal gait, Denies dizziness, Denies syncope, Denies numbness, Denies tingling and Denies weakness Endo Denies palpitations Physical Exam Vital Signs: Last Vital Signs Pulse 56 10/25/24 09:31 BP 118/60 10/25/24 09:31 BMI result Body Mass Index 26.8 Const General: comfortable and no acute distress Orientation/consciousness: patient oriented x3 HEENT Other: Unremarkable Head: Yes normal to inspection Neck Neck: Yes normal visual inspection Chest Chest palpation & inspection: normal inspection of the chest Resp Auscultation: clear to auscultation bilaterally Cardio Palpation: normal PMI Heart sounds: S1 normal heart sound present, S2 normal heart sound present, no gallops, no murmurs and no rubs GI Palpation (GI): Soft to palpation Back/Spine/Pelvis Other: unremarkable Skin General skin exam: no rashes or lesions noted Neuro General: patient oriented x3 Extrem General: Yes normal to inspection Psych Mental Status: mental status grossly normal Assessment & Plan Assessment & Plan (1) Atherosclerotic cardiovascular disease: Code(s): I25.10 - Atherosclerotic heart disease of [place] coronary artery without angina pectoris Category: Medical Plan: Cardiac catheterization - 07/2024- patent stent mid LAD; otherwise normal coronaries. With regard to antiplatelet drugs, he was on aspirin in the past but now on Plavix. There is a history of G6PD deficiency and I am not clear if that is why it was switched. We will check with ood He is statin intolerance causing myalgias. Has taken Praluent in the past but then there was some interruption and now on Repatha. Advised to take this regularly and follow up on lipids. (2) Mild ascending aorta dilatation: Code(s): I77.810 - Thoracic aortic ectasia Category: Medical Plan: In a prior chest CT, ascending aortic measurement was 4.5 cm x 4.3 cm. In the coronary CTA, it was 4.3 cm. In the echocardiogram, ascending aortic size 4cm, probable underestimate. We can recheck in due course. (3) Essential hypertension: Code(s): I10 - Essential (primary) hypertension Category: Medical Plan: Stable. Plan Discussion Notes I discussed with the patient the normal results of the cardiac evaluations, which ruled out a myocardial infarction. We reviewed the importance of resuming Repatha for cholesterol management and the need for regular monitoring. The implications of G6PD deficiency on medication choices were explained, particularly regarding aspirin and Plavix. Patient was informed and verbally consented to the use of an ambient scribe for clinic note documentation during this visit. Patient Instructions: - Continue taking Repatha as prescribed and monitor cholesterol levels regularly. - Monitor for any chest pain and report any changes or worsening symptoms. Coding Level of Care Code Est Pt Level 4 (28165) Complex EM visit Add On G2211 Diagnoses Atherosclerotic cardiovascular disease I25.10 Mild ascending aorta dilatation I77.810 Essential hypertension I10
[2024-10-25 09:31] VITALS: BP 118/60; PULSE 56; BMI 26.8
--- OUTSIDE RECORDS SUMMARY | 2024-10-25 09:54 | XMS_ITS | Patient Health Record ---
Author Organization [facility] Address [address] [place] [address] [place] [phone] Care Team Providers Care Financial Operations Clerk Name Role Phone Eric MYRICK, Asma Primary Care Provider Esteabn Hendricks [phone] Reason For Referral No Information Encounters Encounter Location Date Provider Diagnosis [facility] [address] [place] [address] [place] [phone] 09/05/2024 Esteban Sheth Plan Of Treatment Next Appt Details Provider Name:Esteban Sheth , 02/20/2025 10:30:00 AM, [address] [place] [address], [address], [place], [address], Insurance Providers Payer Name Payer Address Payer Phone Subscriber Number Group Number Insured Name Patient Relationship to Insured Coverage Start Date Coverage End Date [facility] [address] [place] [address] [phone] [id number] IVANA WAGONER Self - patient is the insured
--- OUTSIDE RECORDS SUMMARY | 2024-10-25 09:54 | XMS_ITS ---
Author Name [facility] Organization Unknown Care Team Organization Name Specialty Phone Email Start Date End Da te [facility] NULL Primary Care 04/13/2022 11/22/2023 [facility] Termed, PROVIDER Primary Care 02/10/202211/03
== END 2024-10-25 09:56 | disposition home or self-care (01) ==
LOC: HO.HCS 09:24
PROVIDERS: PCP Internal Medicine; Visit Provider Internal Medicine
DX: I25.10 Atherosclerotic heart disease of native coronary artery without angina pectoris (principal); I77.810 Thoracic aortic ectasia; I10 Essential (primary) hypertension
CPT/HCPCS: 99214; G2211

== ENCOUNTER → 2024-10-25 09:24 | Outpatient (BNVA) | payer MEDICARE, MEDICAID, SELFPAY | PROVIDERS: PCP Internal Medicine; Visit Provider Internal Medicine | DX: I25.10 Atherosclerotic heart disease of native coronary artery without angina pectoris (principal); I77.810 Thoracic aortic ectasia; I10 Essential (primary) hypertension | CPT/HCPCS: 99212 ==

== ENCOUNTER 2025-02-07 11:19 | Outpatient (AMB) | payer MEDICARE, MEDICAID, SELFPAY ==
[2025-02-07 11:19] VITALS: BP 122/68; PULSE 81; TEMP 36.6; O2SAT 99; BMI 26.3
--- NOTE | 2025-02-07 11:19 | AM.OFFWIN_ITS ---
Intake Vital Signs 02/07/25 11:19 Height 5 ft 8 in Weight 173 lb BMI 26.3 BP 122/68 Blood Pressure Location Lt brachial Position Sitting Pulse 81 Pulse Source Pulse Oximeter Temp 97.8 F Temp Source Oral Pulse Oximetry (%) 99 Oxygen Delivery Method Room Air Intake Visit Reasons: EP Right shoulder pain Intake Note: pt presents with worsening RT shoulder pain after lifting a heavy object a couple weeks ago, unable to lift arm Patient Tobacco Use Status: Never used Tobacco Allergies aspirin (ASPIRIN) Allergy (Severe, Verified 02/07/25 11:23) G6PD DEFICIENCY Hiitaxv-MOX-IzJ Reductase Inhibitor Allergy (Mild, Verified 02/07/25 11:23) Muscle Pain blue dye (BLUE DYE) Allergy (Unknown, Verified 02/07/25 11:23) G6PD Sulfa (Sulfonamide Antibiotics) (SULFA(SULFONAMIDE ANTIBIOTICS)) Allergy (Unknown, Verified 02/07/25 11:23) UNKNOWN BEANS. BAKED Allergy (Severe, Uncoded 07/28/24 08:16) BRE BEANS ( G6PD DEFICINCEY Do you need a note to return to daycare/school/sports/work: No HPI HPI Comments History of Present Illness Details History of Present Illness - The patient is a 74-year-old male pres enting with musculoskeletal pain. - The patient reports lifting a heavy bu cket approximately two to three weeks ago, which resulted in pain in both shoulders. - The pain has progressively worsened, a nd the patient describes it as severe, affecting his ability to lift his arm, right arm> left arm. - The patient has tried using Motrin wit hout significant relief however he should not be taking NSAIDs due to being on Plavix. - The patient has a history of sciatica, which is not currently the same as the shoulder pain. Review of Systems - Musculoskeletal: Reports severe should er pain, denies weakness in the arm - Neurological: Denies any pain on muscl e palpation All systems reviewed and are unremarkable except as noted in HPI Physical Exam General: Cooperative, healthy appearing, comfortable, no acute distress and well developed Orientation: Patient oriented x3 Limitations: Pain in both shoulders, unable to lift arm due to pain, not weakness Head: Normal to inspection Ears: Hearing grossly normal bilaterally Nose: Normal External nose present Face and sinus: Normal facial exam Eyes: Appearance normal, both eyes and all related structures Neck: Normal visual inspection and Yes full ROM Respiratory: Normal respiratory effort and able to speak in complete sentences. Skin: No rashes or lesions noted Neuro: Patient oriented x3 Back/spine: no TTP cervical or thoracic spine Extremities: ROM right shoulder limited 2/2 pain, can abduct to 90 degrees actively, to 110 degrees passively, to TTP right trapezius, no TTP lateral right shoulder, no TTP bicept and tricept, full ROM right elbow, no TTP lateral or medial epicondylitis, no edema on right arm, no skin changes on right arm. [facility] Medical History Severe obstructive sleep apnea Dyspnea on exertion Dysphagia Vitamin D deficiency Hypothyroidism Mild ascending aorta dilatation Pulmonary nodules Restrictive lung disease Chronic cough Hypertension Subclinical hypothyroidism Jadiel's disease Non-toxic multinodular goiter Surgical History Hx of thyroidectomy Hx of heart artery stent Hx of cholecystectomy Family History Father Hypertension Heart disease Diabetes Mother Hypertension Brother Myocardial infarction Social History Household Members: Spouse and Children Housing: House Alcohol intake: never Patient Tobacco Use Status: Never used Tobacco e-Cigarette/Vaping Use: Never Used service: No Current occupational status: retired Cognitive needs: No Hearing needs: No Vision needs: Yes Physical Exam Vital Signs: Last Vital Signs Temp 97.8 F 02/07/25 11:19 Pulse 81 02/07/25 11:19 BP 122/68 02/07/25 11:19 Pulse Ox 99 02/07/25 11:19 Oxygen Delivery Method Room Air 02/07/25 11:19 BMI result Body Mass Index 26.3 Assessment & Plan Assessment & Plan (1) Right shoulder pain: Code(s): M25.511 - Pain in right shoulder Qualifiers: Chronicity: acute Qualified Code(s): M25.511 - Pain in right shoulder Plan: Plan Patient was informed and verbally consented to the use of an ambient scribe for clinic note documentation during this visit. Musculoskeletal Pain - No indication for XR today as no injury, was lifting something heavy, likely muscular strain. - The patient was advised to use Voltaren gel, an NSAID topical treatment, as he cannot take oral NSAIDs due to Plavix use. - A referral to orthopedics was made for further evaluation if the pain does not improve. - A prednisone taper was prescribed to manage inflammation and pain. Orders: Referrals Orthopedics Referral M25.511 - Pain in right shoulder Medications: New prednisone On days 1 through 4 take 2 tablets with breakfast; On days 5 through 8 take 1 tablet with breakfast. 20 mg PO QAM 12 tabs 0RF diclofenac sodium 3% 1 appl topical BID 100 grams 0RF Coding Level of Care Code Est Pt Level 4 (55137) Diagnoses Acute pain of right shoulder M25.511 Chronicity: acute
== END 2025-02-07 12:06 | disposition home or self-care (01) ==
PROVIDERS: PCP Internal Medicine; Visit Provider Physician Assistant
DX: M25.511 Pain in right shoulder (principal)

== ENCOUNTER → 2025-02-07 11:19 | Outpatient (BNVA) | payer MEDICARE, MEDICAID, SELFPAY | PROVIDERS: PCP Internal Medicine; Visit Provider Physician Assistant | DX: M25.511 Pain in right shoulder (principal) | CPT/HCPCS: 99212 ==

== ENCOUNTER 2025-02-09 14:03 | Outpatient (AMB) | payer MEDICARE, MEDICAID, SELFPAY ==
--- NOTE | 2025-02-09 14:12 | A.OFFPC_ITS ---
Vital Signs 02/09/25 14:13 Height 5 ft 8 in Weight 174 lb BMI 26.5 BP 118/70 Blood Pressure Location Lt brachial Position Sitting Pulse 67 Pulse Source Pulse Oximeter Pulse Oximetry (%) 96 Intake Visit Reasons: Shoulder pain Allergies aspirin (ASPIRIN) Allergy (Severe, Verified 02/07/25 11:23) G6PD DEFICIENCY Eyrpctk-FNQ-XrZ Reductase Inhibitor Allergy (Mild, Verified 02/07/25 11:23) Muscle Pain blue dye (BLUE DYE) Allergy (Unknown, Verified 02/07/25 11:23) G6PD Sulfa (Sulfonamide Antibiotics) (SULFA(SULFONAMIDE ANTIBIOTICS)) Allergy (Unknown, Verified 02/07/25 11:23) UNKNOWN BEANS. BAKED Allergy (Severe, Uncoded 07/28/24 08:16) BRE BEANS ( G6PD DEFICINCEY Medication List - Last Reconciled 02/09/25 by Irma Reyes MD acetaminophen 1,000 mg PO Q6H PRN [Cane As directed] cholecalciferol (vitamin D3) (Vitamin D3) 25 mcg PO DAILY ciprofloxacin-dexamethasone 0.3-0.1 % 4 drps otic (ears) BID 7 days clopidogrel (Plavix) 75 mg PO DAILY diclofenac sodium 3% 1 appl topical BID evolocumab (Repatha SureClick) 140 mg subcut Q2W 90 days levothyroxine 75 mcg PO DAILY metoprolol tartrate 25 mg PO BID 90 days omeprazole 20 mg PO BID@0630,1630 prednisone 20 mg PO QAM Tobacco use date assessed: 06/09/24 Dental Screening Dental Screen Date: 06/09/24 HPI Shoulder pain HPI Details History of Present Illness The patient is a 74-year-old male presenting for evaluation of right shoulder pain. Right shoulder pain: - The patient reports experiencing right shoulder pain for the past 2-3 weeks, which has resulted in limited movement and driving with one hand. - He was evaluated at a walk-in clinic t wo days ago and was prescribed prednisone and diclofenac sodium 3% topical rub. - He reports the prednisone provided sli ght relief, but the topical diclofenac did not help much. - An orthopedic referral was placed on an. Hearing impairment: - The patient has a history of a hearing problem, for which a previous medication was helpful and a hearing aid was obtained from [facility]. - He had a history of ear pain that reso lved after using an bdcg-ljq-wygyabh medication for one week, but the hearing issue persists. - He saw an ENT specialist last year for a cough. Medical History: - Hearing problem - History of taking Plavix Medications: - Prednisone tablets, taking in the morn ing for shoulder pain. - Diclofenac sodium 3% topical rub for s houlder pain. - Plavix - Tylenol as needed for pain. Social History: - The patient resides in [facility] Problem List Right shoulder pain Hearing loss with recurrent pain left ear Plan - An X-ray of the right shoulder has bee n ordered. - A referral has been placed for an ENT evaluation for the patient's hearing problem; the patient was advised to wait until next week before scheduling the appointment. - An order for physical therapy for the right shoulder has been created, and the patient will receive a printout to take to a facility of their choice. - The patient will follow up on the orth opedic referral that was placed on April 27. Review of Systems - General: No fever no chills - Neurological: No headaches no dizziness - Ear nose throat: No sore throat - Cardiovascular: No syncope, no chest pain, no palpitations - Gastrointestinal: No nausea vomiting or diarrhea Physical Exam General: No acute distress HEENT: Hearing problem noted, ENT referral made Neck: Supple Respiratory system: Able to talk in full sentences, no audible wheeze Extremities: Pain in right shoulder with limited range of motion, orthopedic referral made INSPECTOR GENERAL: Alert awake oriented x3 motor intact Skin: Normal turgor PFSH Medical History Severe obstructive sleep apnea Dyspnea on exertion Dysphagia Vitamin D deficiency Hypothyroidism Mild ascending aorta dilatation Pulmonary nodules Restrictive lung disease Chronic cough Hypertension Subclinical hypothyroidism Jadiel's disease Non-toxic multinodular goiter Surgical History Hx of thyroidectomy Hx of heart artery stent Hx of cholecystectomy Family History Father Hypertension Heart disease Diabetes Mother Hypertension Brother Myocardial infarction Social History Household Members: Spouse and Children Housing: House Alcohol intake: never Patient Tobacco Use Status: Never used Tobacco e-Cigarette/Vaping Use: Never Used service: No Current occupational status: retired Cognitive needs: No Hearing needs: No Vision needs: Yes Questionnaire Thrive Questionnaire Date Thrive assessed: 06/09/24 AL-7 AMB Questionnaire AL-7 Date AL - 7 assessed: 06/09/24 Source: Developed by Drs. Esteban Kwon, Rossy Hernandez, Samy Peters and colleagues, with an educational sahil from [employer]. Physical exam (Primary Care) Vital Signs: Last Vital Signs Pulse 67 02/09/25 14:13 BP 118/70 02/09/25 14:13 Pulse Ox 96 02/09/25 14:13 BMI result Body Mass Index 26.5 Tobacco/Smoking Status: Tobacco use Status Tobacco use date assessed 06/09/24 02/09/25 14:13 Patient Tobacco Use Status Never used Tobacco 02/09/25 14:13 e-Cigarette/Vaping Use Never Used 02/09/25 14:13 Thrive Assessment: Date of Thrive Assessment Date Thrive assessed 06/09/24 02/09/25 14:13 Coding Level of Care Code Est Pt Level 3 (74777) Diagnoses Acute pain of right shoulder M25.511 Chronicity: acute Ear pain, left H92.02 Assessment & Plan Assessment & Plan (1) Right shoulder pain: Code(s): M25.511 - Pain in right shoulder Category: Medical Qualifiers: Chronicity: acute Qualified Code(s): M25.511 - Pain in right shoulder (2) Ear pain, left: Code(s): H92.02 - Otalgia, left ear Category: Medical Plan . Right shoulder pain: - The patient reports experiencing right shoulder pain for the past 2-3 weeks, which has resulted in limited movement and driving with one hand. - He was evaluated at a walk-in clinic two days ago and was prescribed prednisone and diclofenac sodium 3% topical rub. - He reports the prednisone provided slight relief, but the topical diclofenac did not help much. - An orthopedic referral was placed on April 27. Hearing impairment: - The patient has a history of a hearing problem, for which a previous medication was helpful and a hearing aid was obtained from [facility]. - He had a history of ear pain that resolved after using an qjye-fkv-qhngjho medication for one week, but the hearing issue persists. - He saw an ENT specialist last year for a cough. Medical History: - Hearing problem - History of taking Plavix Medications: - Prednisone tablets, taking in the morning for shoulder pain. - Diclofenac sodium 3% topical rub for shoulder pain. - Plavix - Tylenol as needed for pain. Social History: - The patient resides in [place]. Problem List Right shoulder pain Hearing loss with recurrent pain left ear Plan - An X-ray of the right shoulder has been ordered. - A referral has been placed for an ENT evaluation for the patient's hearing problem; the patient was advised to wait until next week before scheduling the appointment. - An order for physical therapy for the right shoulder has been created, and the patient will receive a printout to take to a facility of their choice. - The patient will follow up on the orthopedic referral that was placed on April 27. Orders: Orders XR shoulder RT min 2V Today M25.511 - Pain in right shoulder PT Evaluation and Treatment Today M25.511 - Pain in right shoulder Referrals Ear/Nose/Throat Referral H92.02 - Otalgia, left ear
[2025-02-09 14:13] VITALS: BP 118/70; PULSE 67; O2SAT 96; BMI 26.5
== END 2025-02-09 14:43 | disposition home or self-care (01) ==
LOC: HO.HMCC 14:04
PROVIDERS: PCP Internal Medicine; Visit Provider Internal Medicine
DX: M25.511 Pain in right shoulder (principal); H92.02 Otalgia, left ear

== ENCOUNTER 2025-02-09 14:03 | Outpatient (REF) | payer MEDICARE, MEDICAID, SELFPAY ==
--- NOTE | ~2025-02-09 | XR_ITS ---
EXAMINATION: XR SHOULDER, RIGHT CLINICAL INFORMATION: M25.511 - Pain in right shoulder COMPARISON: 02/04/2017. TECHNIQUE: Three views of the right shoulder. FINDINGS: Normal bone mineralization. No fracture, dislocation, or suspicious bone lesion. Normal alignment. The glenohumeral joint demonstrates mild degenerative arthritis. The AC joint demonstrates mild superior surface spurring. There is a type II acromion. No undersurface spurring. The subacromial space is preserved. Remainder of the soft tissue and bony structures appear normal. XR/XR shoulder RT min 2V IMPRESSION: 1. No acute bony or soft tissue abnormality. 2. 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 Electronically signed by: Arash Valle MD 02/09/2025 03:15 PM [facility]
== END 2025-02-09 14:04 | disposition home or self-care (01) ==
LOC: HO.HMGCX 14:03
PROVIDERS: PCP Internal Medicine; Visit Provider Internal Medicine
DX: M25.511 Pain in right shoulder (principal); H92.02 Otalgia, left ear
CPT/HCPCS: 73030; 99212

== ENCOUNTER → 2025-02-09 14:54 | Outpatient (BNV) | payer MEDICARE, MEDICAID, SELFPAY | PROVIDERS: PCP Internal Medicine; Visit Provider Radiology Diagnostic Radiology | DX: M19.011 Primary osteoarthritis, right shoulder (principal) | CPT/HCPCS: 73030 ==